=== PATIENT | female | born 1945 | race Caucasian/White ===

== ENCOUNTER → 2021-06-27 | Outpatient (CLI) | payer MEDICARE ==
--- NOTE | 2021-06-27 15:54 | CT ---
EXAMINATION TYPE: CT angio chest DATE OF EXAM: 06/27/2021 3:44 PM COMPARISON: Outside chest x-ray earlier today HISTORY: Shortness of breath. CT DLP: 445.4 mGycm Automated exposure control for dose reduction was used. CONTRAST: CTA scan of the thorax is performed with IV Contrast, patient injected with 80 mL of Isovue M300, pul monary embolism protocol. MIP images are created and reviewed. FINDINGS: LUNGS: Mild to moderate underlying emphysematous change is present. There is lateral 4 mm left lower lobe nodule axial image 89. [id number] peripheral reticulation in the anterior right midlung. N o pleural effusion or pneumothorax seen bilaterally. No suspicious focal consolidation. MEDIASTINUM: There is satisfactory enhancement of the pulmonary artery and its branches, there is no CT evidence for pulmonary embolism. Prominent main and right pulmonary artery suggesting underlying p ulmonary artery hypertension. There are no greater than 1 cm mediastinal lymph nodes. Prominent but l ow dense right hilar lymph nodes. No cardiomegaly or pericardial effusion is seen. Fairly severe thr ee-vessel coronary artery calcification. OTHER: Cholecystectomy clips. Visualized portion of spleen is prominent. Correlate clinically. Ovoid 3.5 x 2.8 x 3.6 cm medial right breast lesion axial image 46 and coronal image 23 abuts the chest wa ll, Hounsfield units average between 45 and 52. Possible complex fluid collection. Solid mass is not excluded. IMPRESSION: 1. Mild to moderate emphysematous change without acute pulmonary process. No CT evidence for acute pu lmonary embolism. Underlying pulmonary artery hypertension. 2. Nonspecific 3.5 cm medial right breast lesion, need to further investigated with diagnostic mammog yair and ultrasound should be based on clinical correlation.
== END | disposition home or self-care (01) ==
LOC: RADCTMAIN 14:37
PROVIDERS: ATTEND Nurse Practitioner Adult Health
DX: J43.9 Emphysema, unspecified (principal); I27.20 Pulmonary hypertension, unspecified
CPT/HCPCS: 82565; 84520; 71275; 36415; Q9967

== ENCOUNTER → 2024-07-24 | Outpatient (CLI) | payer MEDICARE ==
[2024-07-24 12:49] LABS: African American GFR (CKD) 42 (>60 ml/min/1.73 sqM); Blood Urea Nitrogen 23 mg/dL (7-17); Non-African American GFR(CKD) 37 (>60 ml/min/1.73 sqM)
--- NOTE | 2024-07-24 13:54 | CT ---
EXAMINATION TYPE: CT chest w con CT DLP: 516.60 mGycm, Automated exposure control for dose reduction was used. DATE OF EXAM: 07/24/2024 1:39 PM COMPARISON: CT chest 06/27/2021. CLINICAL INDICATION: Female, 78 years old with history of R91.1 SOLITARY PULMONARY NODULE; PHH, Solit les pulmonary nodule. Isovue 300/80 ml. Machine errored right before scanning, images taken at a long er delay. TECHNIQUE: Multiple axial images were obtained through the chest. Sagittal and coronal reformats were created for review. Contrast used:80 mL of Isovue 300 with IV Contrast (None if empty) Oral contrast used: (None if empty) FINDINGS: LUNGS/ PLEURA: No focal consolidation, pneumothorax or pleural effusion. Left lower lobe pulmonary no dule measuring 13 mm series 4 image 39. Suture emphysema changes. AIRWAY: Patent and unremarkable. HEART: Heart is mildly enlarged for size. Aortic valve calcifications and coronary artery atheroscler osis. Mitral valve annular cusp patient's. MEDIASTINUM: No gross evidence of adenopathy. VASCULATURE: No aortic aneurysm. Dilated pulmonary trunk measuring 37 mm. MUSCULOSKELETAL: No acute osseous abnormalities SOFT TISSUES/LYMPH NODES: Subcutaneous lesion in the medial right lower breast similar measuring 34 x 31 mm. LOWER NECK: No significant findings. UPPER ABDOMEN:. Gallbladder surgically absent. IMPRESSION: 1. Left lower lobe pulmonary nodule measuring 13 mm series 4 image 39 further workup with PET/CTs re commended. New from 06/27/2021. 2. Mild to moderate emphysema changes. 3. Medial right lower breast mass has mildly increased in size. Further evaluation with ultrasound r ecommended for mammographic workup recommended. 4. Severe coronary artery atherosclerosis. Mitral valve annular calcifications. 5. Mild cardiomegaly. 6. Pulmonary hypertension
== END | disposition home or self-care (01) ==
LOC: RADCTMAIN 11:58
PROVIDERS: ATTEND Internal Medicine Critical Care Medicine
DX: R91.1 Solitary pulmonary nodule
CPT/HCPCS: 36415; 71260; 82565; 84520

== ENCOUNTER → 2024-08-13 | Outpatient (CLI) | payer MEDICARE ==
--- NOTE | 2024-08-15 14:50 | PE ---
EXAMINATION TYPE: PET CT fusion skull to thigh DATE OF EXAM: 08/13/2024 CLINICAL INDICATION:Female, 78 years old with history of SOLITARY PULMONARY NODULE; TECHNIQUE: Following the intravenous administration of 12.3 mCi of F-18 FDG, whole body images are performed from the skull base to the midthigh. Images are reviewed on the computer in the coronal, a xial, and sagittal planes. Reconstructed rotating images are created on independent workstation and reviewed on the computer. A non-contrast CT is performed in conjunction with the PET scan. Glucose level 124 mg/dL CT DLP: 885r mGycm, Automated exposure control for dose reduction was used. COMPARISON: CT 07/24/2024, PET/CT None, MRI: None FINDINGS: Mediastinal SUV mean is 2.7. Hepatic parenchyma SUV mean is 3.8. SKULL BASE AND NECK: No suspicious radiotracer activity. CHEST, MEDIASTINUM, AND HILAR REGION: * Indeterminate medial right breast soft tissue lesion measuring 38 x 33 mm max SUV 3.2. * Right pulmonary hilum lymph nodes max SUV 4.7. * Left lower lobe pulmonary nodule measuring 14 mm Max SUV 17.1. * Left pulmonary hilum lymph nodes max SUV 22.6. ABDOMEN AND PELVIS: No suspicious radiotracer activity. MUSCULOSKELETAL STRUCTURES: No suspicious radiotracer activity. Muscle strain uptake within the pelvic girdles/gluteus benji bilaterally musculature. OTHER CT: Atherosclerosis of the carotid bifurcations and coronary arteries. The gallbladder is surgi krystle absent. Small hiatal hernia. Scattered colonic diverticula. The appendix is not definitively vi sualized may be surgically absent. High density items are seen in the colon possibly representing com parison. IMPRESSION: 1. Left lower lobe pulmonary nodule compatible with malignancy with at least one left pulmonary hilu m lymph node with metabolic activity compatible with local metastatic disease. 2. Indeterminate inferior right medial breast lesion correlate with mammography, if no recent mammog ami further workup with mammography and ultrasound recommended. [facility], , 08/15/2024 2:48 PM
== END | disposition home or self-care (01) ==
LOC: RADPETMAIN 14:15
PROVIDERS: ATTEND Internal Medicine Critical Care Medicine
DX: R91.1 Solitary pulmonary nodule (principal)
CPT/HCPCS: 78815; A9552

== ENCOUNTER 2024-08-27 13:05 | Day surgery (SDC) | payer MEDICARE ==
[2024-08-27] MEDS: IV FLUID CONTINUATION 1,000 ML IV ONE (13:49)
[2024-08-27] MEDS: LACTATED RINGERS 1,000 ML IV SCH ×2 (14:01→20:35)
[2024-08-27] MEDS: DEXAMETHASONE SOD PHOSPHATE 4 MG/ML 1 ML VIAL IVP STA (14:12)
[2024-08-27] MEDS: ONDANSETRON 4 MG/2 ML VIAL IVP STA (14:12)
--- NOTE | 2024-08-27 14:56 | CT ---
EXAMINATION TYPE: CT chest wo con CT DLP: 736 mGycm, Automated exposure control for dose reduction was used. DATE OF EXAM: 08/27/2024 1:57 PM COMPARISON: CT 08/13/2024, CT chest 07/24/2024, CTA chest 06/27/2021 CLINICAL INDICATION:Female, 78 years old with history of R91.1 Solitary pulmonary nodule; PHH, pre-op bronch. History of right-sided breast cancer 2018. TECHNIQUE: Multiple axial images were obtained through the chest without IV contrast. Lack of IV or o ral contrast limits evaluation of solid and hollow organ viscera. . Coronal and sagittal reformats re viewed. FINDINGS: LUNGS/ PLEURA: No focal consolidation, pneumothorax or pleural effusion. Redemonstration of left lowe r lobe solid pulmonary nodule measuring 1.6 cm (series 4, image 225). Previously 1.3 cm. FDG avid on prior exam. Stable left lateral lower lobe 4.8 mm pulmonary nodule (series 4, image 216). Mild to mod erate centrilobular emphysema changes. Mild scattered subpleural reticulations. Most prominent along the anterior aspect of the right upper lobe again. Possibly related to prior posttreatment radiation change. AIRWAY: Patent and unremarkable. HEART: Heart is mildly enlarged for size. Aortic valve calcifications and coronary artery atheroscler osis. Mitral valve annular dense calcifications. No pericardial effusion. MEDIASTINUM: Patient enlarged heterogenous left hilar lymph node measuring 1.3 cm (series 3, image 32 7). FDG avid on prior exam. VASCULATURE: No aortic aneurysm. Dilated pulmonary trunk measuring 3.8 cm. Mild to moderate atherosc lerotic calcification of the aorta and its branches. MUSCULOSKELETAL: No acute osseous abnormalities. Multilevel degenerative changes of the visualized ce rvical spine. [facility] of the thoracic spine. SOFT TISSUES/LYMPH NODES: Subcutaneous lesion in the medial right lower breast similar measuring 3.5 x 2.7 m again. Stable dating back to 2020. LOWER NECK: No significant findings. UPPER ABDOMEN:. Gallbladder surgically absent. Prominent spleen measuring at least 13.7 cm in AP dime nsion. Scattered colonic diverticulosis. Small hiatal hernia. IMPRESSION: 1. Marginal increase in size of 1.6 cm left lower lobe pulmonary nodule which was FDG avid on recent PET/CT. Previously 1.3 cm. Highly concerning for primary lung malignancy. 2. Redemonstration of left perihilar 1.3 cm enlarged lymph node which was FDG avid on recent PET CT and concerning for metastasis. Mild to moderate emphysema changes. 3. Medial right lower breast lesion is stable dating back to 2020 and may represent a seroma in the setting of prior reported right breast cancer. Stability from 2020 suggests a benign process. 4. Severe coronary artery atherosclerosis. Mitral valve annular calcifications. 5. Mild cardiomegaly. 6. Pulmonary hypertension [facility], , 08/27/2024 2:09 PM
[2024-08-27] MEDS ORDERED: fentaNYL (PF) 50 MCG/ML 2 ML AMP ONE (14:58)
[2024-08-27] MEDS ORDERED: ROCURONIUM 10 MG/ML (5 ML VIAL) IV ONE (14:58)
[2024-08-27] MEDS ORDERED: GLYCOPYRROLATE 0.2 MG/ML 2 ML VIAL ONE (14:58)
[2024-08-27] MEDS ORDERED: SUCCINYLCHOLINE CHLORIDE 200 MG/10 ML VIAL IV ONE (14:58)
[2024-08-27] MEDS ORDERED: PROPOFOL 10 MG/ML 20 ML VIAL IV ONE (14:58)
[2024-08-27] MEDS ORDERED: LIDOCAINE 1% INJ 10MG/ML (20 ML MDV) ONE (14:58)
[2024-08-27] MEDS ORDERED: NEOSTIGMINE 1 MG/ML 10 ML VIAL ONE (14:58)
[2024-08-27] MEDS ORDERED: ePHEDrine 50 MG/ML 1 ML VIAL ONE (14:58)
--- NOTE | 2024-08-27 16:17 | P.PCN ---
Date of Procedure: 08/27/24 Operative Findings: Date of Procedure: 08/27/24 Operative Findings: Preoperative Diagnosis: Left lower lobe mass Left hilar lymph node Postoperative Diagnosis: Left lower lobe mass Left hilar lymph node Procedure(s) Performed: Flexible bronchoscopy Endobronchial ultrasound and biopsy of a left hilar lymph node Robotic-assisted bronchoscopy and radial ultrasound evaluation of the left lower lobe mass Robotic-assisted transbronchial biopsies of the left lower lobe mass Anesthesia: SUSI Surgeon: Hortencia Salgado Estimated Blood Loss (ml): 0 Pathology: other Condition: stable Disposition: same day Operative Findings: A physical exam was performed. Informed consent was obtained from the patient after explaining all the risks (pneumothorax, life threatening bleeding, infection and adverse effects due to medications), benefits and alternatives to the procedure which the patient appeared to understand and so stated. The patient was connected to the monitoring devices. General anesthesia was induced and the patient was intubated by anesthesia. A final timeout was performed and the procedure confirmed by the attending bronchoscopist. The bronchoscope was inserted and the airway examined. Airway examination was essentially within normal limits. The endobronchial ultrasound was inserted. Careful review of the mediastinal lymph nodes and mediastinal stations was done within the thorax. There was a left hilar station 10 lymph node identified measuring 15 x 12 mm in size. Using a 22-gauge physician needle, transbronchial needle aspirate of the left lymph node was done and a total of 5 passes were taken without any complications. Minimal amount of bleeding was encountered and this was easily suctioned using the flexible bronchoscope. The flexible bronchoscope was removed and the robotic bronchoscope was inserted. Registration was completed. I next guided the robotic bronchoscope using the navigation system into theleft lower lobe posterior segment. Once in proper position, the bronchoscope was frozen. The radial EBUS probe was placed through the bronchoscope and confirmed abnormal u/s images vs normal lung. U/S evaluation was then used to reconfirm location. Forceps were next introduced through working channel and transbronchial biopsies of the left lower lobe mass was done under fluoroscopic guidance. The u/s probe was then reinserted to confirm location. When confirmed this process was repeated for a total of 6 transbronchial biopsies. Flex. bronchoscope was inserted and regular suctioning was done. At the completion of the procedure, no residual secretions or bloody material within the airway. The bronchoscope was removed. The endobronchial ultrasound was inserted. RECOMMENDATIONS: Await pathology and cytology results The referring physician will be alerted to the results when available. The patient was advised to follow up with the referring physician with the biopsy results Patient will be called with results.
--- NOTE | 2024-08-27 16:57 | XR ---
EXAMINATION TYPE: XR chest 1V DATE OF EXAM: 08/27/2024 COMPARISON: CT chest 08/27/2024 INDICATION: Previous abnormal TECHNIQUE: Single frontal view of the chest is obtained. FINDINGS: The heart size is normal. The pulmonary vasculature is normal. Diffuse increased lung markings are present, greater at the left base. No pneumothorax is evident. Di screte nodule identified by CT not evident on chest x-ray IMPRESSION: 1. Diffuse nonspecific increased lung markings. Patient's left infrahilar nodule not discretely ident ified on the chest film [facility], Workstation: [facility], 08/27/2024 4:55 PM
[2024-08-27] MEDS ORDERED: ALBUTEROL HFA INHALER INHALATION PRN (19:44)
--- NOTE | 2024-08-27 20:07 | P.CNPUL ---
History of Present Illness Consult date: 08/27/24 Reason for consult: hypoxemia History of present illness: This is a 78-year-old female patient who underwent a successful biopsy of the left hilar lymph node and the left lower lobe mass utilizing endobronchial ultrasound and IM bronchoscopy. Postop, the patient pulse ox remained around 84% room air oxygen and the patient was unable to regain back her oxygenation. Noted the chest x-ray that was done postop showed no pulmonary complications. The patient is calm and comfortable. She is free of any chest pain. Denies having any other specific complaints. Noted the patient had a 1.3 cm left lower lobe pulmonary nodule and another left hilar lymph node that were both PET avid. She is known to have severe COPD with an FEV1 of 55 to 61% predicted. She had a previous COVID-19 infection back in September 2023 from which she recovered. She also has obstructive sleep apnea maintained on CPAP therapy pressure of 9. She does not have coronary artery disease, chronic kidney disease stage III with a GFR of 47, hypertension hyperlipidemia and she is also obese. Based on that, the patient will be admitted for observation and oxygenation will be monitored and she will be provided an incentive spirometer. Home medication will be also resumed. She may need home O2 at time of discharge. Review of Systems Constitutional: Denies chills, Denies fever Eyes: denies as per HPI, denies blurred vision, denies bulging eye, denies decreased vision, denies diplopia, denies discharge, denies dry eye, denies irritation, denies itching, denies pain, denies photophobia, denies loss of peripheral vision, denies loss of vision, denies tunnel vision/blind spots Ears: deny: decreased hearing, ear discharge, earache, tinnitus Ears, nose, mouth and throat: Reports as per HPI Breasts: absent: as per HPI, change in shape, gynecomastia, masses, nipple discharge, pain, skin changes, swelling Cardiovascular: Reports dyspnea on exertion Respiratory: Reports dyspnea Gastrointestinal: Reports as per HPI Genitourinary: Reports as per HPI Menstruation: Reports as per HPI Musculoskeletal: Reports as per HPI Musculoskeletal: absent: ankle pain, ankle stiffness, ankle swelling, as per HPI, elbow pain, elbow stiffness, elbow swelling, foot pain, foot stiffness, foot swelling, hand pain, hand stiffness, hand swelling, hip pain, hip s tiffness, hip swelling, knee pain, knee stiffness, knee swelling, shoulder pain, shoulder stiffness, shoulder swelling, wrist pain, wrist stiffness, wrist swelling Integumentary: Reports as per HPI Neurological: Reports as per HPI Psychiatric: Reports as per HPI Endocrine: Reports as per HPI Hematologic/Lymphatic: Reports as per HPI Allergic/Immunologic: Reports as per HPI Past Medical History Past Medical History: Cancer, COPD, GERD/Reflux, Hypertension, Osteoarthritis (OA), Pneumonia Additional Past Medical History / Comment(s): LEFT ANKLE EDEMA, SOB, CHRONIC COUGH, hx. right breast ca 2019; pt reports she went to [facility] on [address] about 3 weeks ago for fatigue, severe headache, & nausea- was diagnosed with mononucleosis- advised pt she needs to contact Dr. Salgado to notify him of this. History of Any Multi-Drug Resistant Organisms: None Reported Past Surgical History: Breast Surgery, Cholecystectomy, Hysterectomy Additional Past Surgical History / Comment(s): LEFT BREAST BX BENIGN, right breast lumpectomy 2019 with radiation Past Anesthesia/Blood Transfusion Reactions: Previous Problems w/ Anesthesia Additional Past Anesthesia/Blood Transfusion Reaction / Comment(s): pt states hard time waking up out of anesthesia Smoking Status: Former smoker - Past Family History Mother Family Medical History: Coronary Artery Disease (CAD), Hypertension Additional Family Medical History / Comment(s): cabg (triple) when 76, brain tumor Father Family Medical History: Prostate Disorder Additional Family Medical History / Comment(s): congenital heart fauilure; prostate ca Medications and Allergies Home Medications Medication Instructions Recorded Confirmed Type Albuterol Sulfate [Proair Hfa] 2 puff INHALATION DIRECTED PRN 08/17/14 08/27/24 History Aspirin 81 mg PO DAILY 08/17/14 08/27/24 History Furosemide [Lasix] 40 mg PO DAILY 08/17/14 08/27/24 History Losartan [Cozaar] 50 mg PO BID 08/17/14 08/27/24 History Omeprazole [PriLOSEC] 10 mg PO DAILY 08/17/14 08/27/24 History Potassium Chloride [Klor-Con 20] 20 meq PO DAILY 08/17/14 08/27/24 History Sertraline [Zoloft] 100 mg PO DAILY 08/17/14 08/27/24 History Albuterol Nebulized [Ventolin 2.5 mg INHALATION DAILY 08/24/24 08/27/24 History Nebulized] Ascorbic Acid [Vitamin C] 500 mg PO DAILY 08/24/24 08/27/24 History Cholecalciferol [Vitamin D3 (25 25 mcg PO DAILY 08/24/24 08/27/24 History Mcg = 1000 Iu)] Cyanocobalamin (Vitamin B-12) 2,000 mcg PO DAILY 08/24/24 08/27/24 History [Vitamin B-12] Ferrous Sulfate [Feosol] 325 mg PO DAILY 08/24/24 08/27/24 History Fiber 1 dose PO DAILY 08/24/24 08/27/24 History Fluticasone/Umeclidin/Vilanter 1 inhalation INHALATION DAILY 08/24/24 08/27/24 History [Trelegy Ellipta 100-62.5-25] Krill/Om-3/Dha/Epa/Phospho/Ast 1 each PO DAILY 08/24/24 08/27/24 History [Krill Oil 600 mg Softgel] Magnesium 250 mg PO DAILY 08/24/24 08/27/24 History Metoprolol Tartrate 12.5 mg PO BID 08/24/24 08/27/24 History Allergies Allergy/AdvReac Type Severity Reaction Status Date / Time codeine Allergy Unknown Verified 08/27/24 13:40 egg Allergy Unknown Verified 08/27/24 13:40 Estrogens Allergy Unknown Verified 08/27/24 13:40 Sulfa (Sulfonamide Allergy Unknown Verified 08/27/24 13:40 Antibiotics) atorvastatin calcium AdvReac Unknown Verified 08/27/24 13:40 [From Lipitor] Physical Exam Vitals: Vital Signs Temp Pulse Resp BP Pulse Ox 08/27/24 18:45 69 18 129/73 93 L 08/27/24 18:15 73 16 127/70 90 L 08/27/24 17:55 71 16 113/68 93 L 08/27/24 17:35 64 17 120/55 91 L 08/27/24 17:20 68 17 118/59 94 L 08/27/24 17:05 69 18 125/72 94 L 08/27/24 16:49 68 16 112/76 94 L 08/27/24 16:34 69 16 112/78 95 08/27/24 16:19 97 F L 89 16 123/57 94 L 08/27/24 13:55 97.2 F L 67 16 132/52 92 L Intake and Output 08/27/24 08/27/24 08/27/24 06:59 14:59 22:59 Intake Total 100 500 Balance 100 500 Intake: IV 100 500 Other: Weight 97.7 kg The patient appeared well nourished and normally developed. Vital signs as documented. Head exam is unremarkable. No scleral icterus or corneal arcus noted. Neck is without jugular venous distension, thyromegaly, or carotid bruits. Carotid upstrokes are brisk bilaterally. Lungs are diminished in lung bases bilaterally. No wheezes. Cardiac exam reveals the PMI to be normally sized and situated. Rhythm is regular. First and second heart sounds normal. No murmurs, rubs or gallops. Abdominal exam reveals normal bowel sounds, no masses, no organomegaly and no aortic enlargement. Extremities are nonedematous and both femoral and pedal pulses are normal. Examination of the skin revealed no evidence of significant rashes, suspicious appearing nevi or other concerning lesions. Neurologically, the patient is awake and alert and the patient does not have any focal neurological deficit. Cranial nerves are essentially intact. Results - Diagnostic Findings Chest x-ray: image reviewed Assessment and Plan Plan: Acute hypoxic respiratory failure following a endobronchial ultrasound and I am bronchoscopy for left lower lobe and the hilar mass that was PET avid. The patient is currently on 2 L of oxygen by nasal cannula. No complications attributed to the procedure. No bleeding encountered. Chest x-ray shows no evidence of any pneumothorax. Suspect postop atelectasis and mucous c ontributing to her hypoxemia and this is an acute on top of her chronic hypoxemic respiratory failure. Baseline pulse ox is in order of 94 to 95%. Solitary nodule of lung, CT scan of the chest from 07/24/2024 shows a left lower lobe pulmonary nodule measuring 13 mm in size in addition to a lesion in the right lower breast measuring 34 x 31 mm in size. PET/CT done on 08/15/2024 confirmed the presence of a left lower lobe and left hilum metabolically avid lesions in addition to an indeterminant inferior right medial breast lesion that needs to be further correlated with mammography. History of breast cancer severe chronic obstructive pulmonary disease, the patient has moderate to severe COPD and currently she is stable on Trelegy Ellipta. She is taking the medication one inhalation a day without any major side effects. No smoking. She has an FEV1 of 55-61% and she is vaccinated for COVID 19. COVID-19 in September 2023, recovered without any complications and her respiratory status remained stable for now. obstructive sleep apnea syndrome, the patient is currently receiving CPAP therapy at a pressure of 9 cm of water. coronary arteriosclerosis, the patient follows up with Dr. Masters on her most recent cardiac stress test from June 2017 showed an ejection fraction of 65% without any reversible ischemia. obesity chronic renal failure, the patient has a stable kidney function with a GFR of 47 and a creatinine of 1.13. This is based on the evaluation that was done on 11/18/2016. hypertensive disorder hyperlipidemia Plan Monitor oxygenation Provide incentive spirometer Titrate oxygen flow, currently on 2 L Repeat chest x-ray in the morning Anticipate improvement in oxygenation. If not, will provide home O2 Biopsy was completed successfully, awaiting results.
[2024-08-27] MEDS: LOSARTAN 50 MG TAB PO SCH (20:08)
[2024-08-27] MEDS: METOPROLOL TARTRATE 12.5 MG TAB PO SCH (20:08)
[2024-08-27] MEDS: BENZOCAINE/MENTHOL LOZENG 1 EACH LOZENGE MUCOUS MEM PRN (20:35)
--- NOTE | 2024-08-27 21:33 | FL ---
EXAMINATION TYPE: FL bronchoscopy DATE OF EXAM: 08/27/2024 9:20 PM COMPARISON: Pre Operative Images if available both CT/MRI or plain film CLINICAL INDICATION: Female, 78 years old with history of PULMONARY NODULE; TECHNIQUE: FL bronchoscopy, multiple fluoroscopic images provided for procedure. Total fluoroscopy time: 18 seconds Total submitted images to PACS: 1 DAP: [id number] mGym2 Gycm2 uGym2 cGycm2 or equivalent. FINDINGS: ION bronchoscopy images demonstrate bronchoscope terminating in the lung. No immediate complications identified, no pneumothorax identified. IMPRESSION: 1. No evidence for intraoperative complication. 2. Please see the operative/procedural note for further details. [facility], , 08/27/2024 9:30 PM
--- NOTE | 2024-08-27 23:57 | P.CONS ---
History of Present Illness - Reason for Consult Consult date: 08/27/24 medical management - History of Present Illness Patient is a 78-year-old female with COPD (no home oxygen), BECKY (CPAP use at home), anxiety, depression, panic disorder, GERD, osteoarthritis and history of breast cancer and seen for medical management status post bronchoscopy for a left lung nodule biopsy. Nodule was seen on CT scan of the abdomen and was followed up with Dr. Salgado. Follow-up imaging of PET scan showed left lung lesions and hilar lymph nodes concerning for mets. After the procedure, she experienced shortness of breath with O2 saturation at 70s on 2 L nasal cannula. At current patient has no complaints other than shortness of breath on exertion and is relieved with rest. She denies chest pain, palpitations, calf tenderness, leg pain, abdominal pain, fever, chills, nausea or vomiting, changes in vision, focal weakness, or tremors. Review of systems: Pertinent positives and negatives as discussed in HPI, a complete review of systems was performed and all other systems are negative. Physical examination: Vital signs reviewed General: non toxic, no distress, appears at stated age, on 2 L nasal cannula Derm: no unusual rashes/lesions, warm Head: atraumatic, normocephalic, symmetric Eyes: EOMI, anicteric sclera, pupils equal round reactive to light ENT: Nose and ears atraumatic Neck: No masses or lesions grossly, trachea midline, supple Mouth: no lip lesion, mucus membranes moist Cardiovascular: S1S2 reg, no murmur Lungs: good breath sounds bilateral, scattered wheezing , no rhonchi, no rales, no accessory muscle use Abdominal: soft, nondistended, nontender to palpation, no guarding Ext: muscle strength 5 out of 5 in all 4 upper and lower extremities grossly, no gross muscle atrophy, no contractures, positive dorsalis pedis pulse bilateral, no leg edema Neuro: CN II-XI grossly intact, no gross focal neuro deficits Psych: Alert and oriented x 3, appropriate affect and mood Assessment/Plan: Chronic conditions: #. COPD -Supplemental oxygenation as needed -Symbicort inhaler twice daily -Ventolin inhaler as needed for shortness of breath #. BECKY -Continue CPAP #. GERD #. Hypertension: Lopressor 12.5 mg twice daily, losartan 50 mg p.o. twice daily #. CKD stage III last known GFR 47 #. Anxiety #. Depression #. Panic disorder -Resume home medications once reconciled -CBC, BMP at AM no labs available for review DVT prophylaxis: Lovenox 30 mg SQ once a day We will follow patient along with you. Thank you for letting us participate in this patient's care. Past Medical History Past Medical History: Cancer, COPD, GERD/Reflux, Hypertension, Osteoarthritis (OA), Pneumonia Additional Past Medical History / Comment(s): LEFT ANKLE EDEMA, SOB, CHRONIC COUGH, hx. right breast ca 2019; pt reports she went to [facility] on [address] about 3 weeks ago for fatigue, severe headache, & nausea- was diagnosed with mononucleosis- advised pt she needs to contact Dr. Salgado to notify him of this. History of Any Multi-Drug Resistant Organisms: None Reported Past Surgical History: Breast Surgery, Cholecystectomy, Hysterectomy Additional Past Surgical History / Comment(s): LEFT BREAST BX BENIGN, right breast lumpectomy 2019 with radiation Past Anesthesia/Blood Transfusion Reactions: Previous Problems w/ Anesthesia Additional Past Anesthesia/Blood Transfusion Reaction / Comm: pt states hard time waking up out of anesthesia Smoking Status: Former smoker - Past Family History Mother Family Medical History: Coronary Artery Disease (CAD), Hypertension Additional Family Medical History / Comment(s): cabg (triple) when 76, brain tumor Father Family Medical History: Prostate Disorder Additional Family Medical History / Comment(s): congenital heart fauilure; prostate ca Medications and Allergies Home Medications Medication Instructions Recorded Confirmed Type Albuterol Sulfate [Proair Hfa] 2 puff INHALATION DIRECTED PRN 08/17/14 08/27/24 History Aspirin 81 mg PO DAILY 08/17/14 08/27/24 History Furosemide [Lasix] 40 mg PO DAILY 08/17/14 08/27/24 History Losartan [Cozaar] 50 mg PO BID 08/17/14 08/27/24 History Omeprazole [PriLOSEC] 10 mg PO DAILY 08/17/14 08/27/24 History Potassium Chloride [Klor-Con 20] 20 meq PO DAILY 08/17/14 08/27/24 History Sertraline [Zoloft] 100 mg PO DAILY 08/17/14 08/27/24 History Albuterol Nebulized [Ventolin 2.5 mg INHALATION DAILY 08/24/24 08/27/24 History Nebulized] Ascorbic Acid [Vitamin C] 500 mg PO DAILY 08/24/24 08/27/24 History Cholecalciferol [Vitamin D3 (25 25 mcg PO DAILY 08/24/24 08/27/24 History Mcg = 1000 Iu)] Cyanocobalamin (Vitamin B-12) 2,000 mcg PO DAILY 08/24/24 08/27/24 History [Vitamin B-12] Ferrous Sulfate [Feosol] 325 mg PO DAILY 08/24/24 08/27/24 History Fiber 1 dose PO DAILY 08/24/24 08/27/24 History Fluticasone/Umeclidin/Vilanter 1 inhalation INHALATION DAILY 08/24/24 08/27/24 History [Trelegy Ellipta 100-62.5-25] Krill/Om-3/Dha/Epa/Phospho/Ast 1 each PO DAILY 08/24/24 08/27/24 History [Krill Oil 600 mg Softgel] Magnesium 250 mg PO DAILY 08/24/24 08/27/24 History Metoprolol Tartrate 12.5 mg PO BID 08/24/24 08/27/24 History Allergies Allergy/AdvReac Type Severity Reaction Status Date / Time codeine Allergy Unknown Verified 08/27/24 13:40 egg Allergy Unknown Verified 08/27/24 13:40 Estrogens Allergy Unknown Verified 08/27/24 13:40 Sulfa (Sulfonamide Allergy Unknown Verified 08/27/24 13:40 Antibiotics) atorvastatin calcium AdvReac Unknown Verified 08/27/24 13:40 [From Lipitor] Physical Exam Vitals: Vital Signs Temp Pulse Resp BP Pulse Ox 08/27/24 18:45 69 18 129/73 93 L 08/27/24 18:15 73 16 127/70 90 L 08/27/24 17:55 71 16 113/68 93 L 08/27/24 17:35 64 17 120/55 91 L 08/27/24 17:20 68 17 118/59 94 L 08/27/24 17:05 69 18 125/72 94 L 08/27/24 16:49 68 16 112/76 94 L 08/27/24 16:34 69 16 112/78 95 08/27/24 16:19 97 F L 89 16 123/57 94 L 08/27/24 13:55 97.2 F L 67 16 132/52 92 L Intake and Output 08/27/24 08/27/24 08/27/24 06:59 14:59 22:59 Intake Total 100 500 Balance 100 500 Intake: IV 100 500 Other: Weight 97.7 kg Assessment and Plan Assessment: I have seen and evaluated the patient today. I Discussed the case with the resident and agree with the resident's findings I edited the assessment and plan as necessary as documented in the resident's note.
[2024-08-28] MEDS: CHOLECALCIFEROL 25 MCG (1000 IU) TABLET PO SCH (08:40)
[2024-08-28] MEDS: ENOXAPARIN 30 MG/0.3 ML SYRINGE SQ SCH (08:40)
[2024-08-28] MEDS: FUROSEMIDE 40 MG TAB PO SCH (08:40)
[2024-08-28] MEDS: POTASSIUM CHLORIDE ER 20 MEQ TAB.ER PO SCH (08:40)
[2024-08-28] MEDS: KRILL PO SCH (08:41)
[2024-08-28] MEDS: AST PO SCH (08:41)
[2024-08-28] MEDS: DHA PO SCH (08:41)
[2024-08-28] MEDS: [UNRECOGNIZED DRUG - OTHER] PO SCH (08:41)
[2024-08-28] MEDS: PHOSPHO PO SCH (08:41)
[2024-08-28] MEDS: EPA PO SCH (08:41)
[2024-08-28] MEDS: IPRATROPIUM 0.5 MG/2.5 ML NEBU INHALATION SCH (08:49)
[2024-08-28] MEDS: SYMBICORT 80-4.5 MCG INHALER INHALATION SCH (08:49)
[2024-08-28] MEDS: ALBUTEROL NEBULIZED 2.5 MG/3 ML INHALATION SCH (08:49)
[2024-08-28 10:40] LABS: Basophils # (A) 0.03 X 10*3/uL (0.00-0.10); Basophils % (A) 0.4 %; Eosinophils # (A) 0.01 X 10*3/uL (0.04-0.35); Eosinophils % (A) 0.1 %; HCT 36.2 % (37.2-46.3); HGB 11.2 g/dL (12.0-15.0); Lymphocytes # (A) 0.55 X 10*3/uL (0.90-5.00); Lymphocytes % (A) 6.6 %; MCH 26.7 pg (27.0-32.0); MCHC 30.9 g/dL (32.0-37.0); MCV 86.2 FL (80.0-97.0); Monocytes # (A) 0.33 X 10*3/uL (0.20-1.00); NRBC Per 100 WBC 0 X 10*3/uL (0.00-0.01); Neutrophils % (A) 88.5 %; Platelet Count 134 X 10*3/uL (140-440); RDW 15.1 % (11.5-14.5); WBC 8.35 X 10*3/uL (4.50-10.00)
[2024-08-28 11:08] LABS: BUN/Creat Ratio 17.33 Ratio (12.00-20.00); Blood Urea Nitrogen 20.8 mg/dL (9.0-27.0); Calcium 8.9 mg/dL (8.7-10.3); Carbon Dioxide 24.3 mmol/L (21.6-31.8); Chloride 105 mmol/L (96-109); Glucose 118 mg/dL (70-110); Potassium 4.7 mmol/L (3.5-5.5); Sodium 141 mmol/L (135-145)
--- NOTE | 2024-08-28 13:41 | P.DS ---
Providers Expected date of discharge: 08/28/24 Attending physician: Hortencia Salgado Consults: 08/27/24 19:22 Consult Physician Routine Consulting Provider: Osiel Perdue Consult Reason/Comments: MEDICAL MANAGEMENT Do you want consulting provider notified?: Yes Primary care physician: Shashi Talavera [facility] Course: # Chronic hronic hypoxemic respiratory failure secondary to COPD and BECKY #. COPD #. BECKY #. GERD #. Hypertension: Lopressor 12.5 mg twice daily, losartan 50 mg p.o. twice daily #. CKD stage III last known GFR 47 #. Anxiety #. Depression #. Panic disorder Hospital Course: Patient is a 78-year-old female with COPD (no home oxygen), BECKY (CPAP use at home), anxiety, depression, panic disorder, GERD, osteoarthritis and history of breast cancer and seen for medical management status post bronchoscopy for a left lung nodule biopsy. Patient was placed on oxygen and monitored overnight with no further events. There were no complications of the bronchoscopy. Patient was evaluated for home oxygen and determined to require this, therefore was discharged on home oxygen. Gen: In NAD, non-toxic HEENT: normocephalic, atraumatic, hearing acuity is intant, mucous membranes moist CVS: perfusing all extremities well, no pitting edema, Respiratory: symmetric chest expansion, no accessory muscle use, GI: soft, NTTP, ND, : no suprapubic tenderness, no CVA tenderness MSK/Derm: no rashes, cyanosis Neuro: CN II-XII intact, no motor weakness, Psych: cooperative, euthymic mood, judgment and insight is intact Patient Condition at Discharge: Good Plan - Discharge Summary Discharge Rx Participant: No New Discharge Prescriptions: Continue Sertraline [Zoloft] 100 mg PO DAILY Potassium Chloride [Klor-Con 20] 20 meq PO DAILY Omeprazole [PriLOSEC] 10 mg PO DAILY Losartan [Cozaar] 50 mg PO BID Furosemide [Lasix] 40 mg PO DAILY Aspirin 81 mg PO DAILY Albuterol Sulfate [Proair Hfa] 2 puff INHALATION DIRECTED PRN PRN Reason: copd Metoprolol Tartrate 12.5 mg PO BID Cholecalciferol [Vitamin D3 (25 Mcg = 1000 Iu)] 25 mcg PO DAILY Ascorbic Acid [Vitamin C] 500 mg PO DAILY Fiber 1 dose PO DAILY Fluticasone/Umeclidin/Vilanter [Trelegy Ellipta 100-62.5-25] 1 inhalation INHALATION DAILY Albuterol Nebulized [Ventolin Nebulized] 2.5 mg INHALATION DAILY Krill/Om-3/Dha/Epa/Phospho/Ast [Krill Oil 600 mg Softgel] 1 each PO DAILY Ferrous Sulfate [Iron (65 MG Elemental)] 325 mg PO DAILY Magnesium 250 mg PO DAILY Cyanocobalamin (Vitamin B-12) [Vitamin B-12] 2,000 mcg PO DAILY Discharge Medication List Albuterol Sulfate [Proair Hfa] 2 puff INHALATION DIRECTED PRN 08/17/14 [History] Aspirin 81 mg PO DAILY 08/17/14 [History] Furosemide [Lasix] 40 mg PO DAILY 08/17/14 [History] Losartan [Cozaar] 50 mg PO BID 08/17/14 [History] Omeprazole [PriLOSEC] 10 mg PO DAILY 08/17/14 [History] Potassium Chloride [Klor-Con 20] 20 meq PO DAILY 08/17/14 [History] Sertraline [Zoloft] 100 mg PO DAILY 08/17/14 [History] Albuterol Nebulized [Ventolin Nebulized] 2.5 mg INHALATION DAILY 08/24/24 [History] Ascorbic Acid [Vitamin C] 500 mg PO DAILY 08/24/24 [History] Cholecalciferol [Vitamin D3 (25 Mcg = 1000 Iu)] 25 mcg PO DAILY 08/24/24 [History] Cyanocobalamin (Vitamin B-12) [Vitamin B-12] 2,000 mcg PO DAILY 08/24/24 [History] Ferrous Sulfate [Iron (65 MG Elemental)] 325 mg PO DAILY 08/24/24 [History] Fiber 1 dose PO DAILY 08/24/24 [History] Fluticasone/Umeclidin/Vilanter [Trelegy Ellipta 100-62.5-25] 1 inhalation INHALATION DAILY 08/24/24 [History] Krill/Om-3/Dha/Epa/Phospho/Ast [Krill Oil 600 mg Softgel] 1 each PO DAILY 08/24/24 [History] Magnesium 250 mg PO DAILY 08/24/24 [History] Metoprolol Tartrate 12.5 mg PO BID 08/24/24 [History] Follow up Appointment(s)/Referral(s): [facility] [NON-STAFF] - 1 Week Hortencia Salgado MD [STAFF PHYSICIAN] - As Needed Patient Instructions/Handouts: *[facility] - Bronchoscopy Discharge Instructions, *[facility] - (Anesthesia) Discharge Instructions Outpatient Surgery Discharge Disposition: HOME SELF-CARE
[2024-08-28 14:34] VITALS: BP 110/50; PULSE 74; RESP 22; TEMP 97.7
--- NOTE | 2024-08-28 14:34 | P.PN ---
Subjective Progress Note Date: 08/28/24 This is a 78-year-old female patient who underwent a successful biopsy of the l eft hilar lymph node and the left lower lobe mass utilizing endobronchial ultrasound and IM bronchoscopy. Postop, the patient pulse ox remained around 84% room air oxygen and the patient was unable to regain back her oxygenation. Noted the chest x-ray that was done postop showed no pulmonary complications. The patient is calm and comfortable. She is free of any chest pain. Denies having any other specific complaints. Noted the patient had a 1.3 cm left lower lobe pulmonary nodule and another left hilar lymph node that were both PET avid. She is known to have severe COPD with an FEV1 of 55 to 61% predicted. She had a previous COVID-19 infection back in September 2023 from which she recovered. She also has obstructive sleep apnea maintained on CPAP therapy pressure of 9. She does not have coronary artery disease, chronic kidney disease stage III with a GFR of 47, hypertension hyperlipidemia and she is also obese. Based on that, the patient will be admitted for observation and oxygenation will be monitored and she will be provided an incentive spirometer. Home medication will be also resumed. She may need home O2 at time of discharge. On 08/28/2024, the patient is doing well. No specific complaints. Overnight, the patient was kept in the hospital as the patient was having some exertional and baseline hypoxemia. Her oxygenation is improved compared to yesterday. On room air oxygen, the patient's pulse ox is around 90 to 92%. With exertion, the patient's pulse ox is still dropping and we may recommend home O2 for this patient. Her labs are all stable with a white cell count of 8, white cell count is 11 with a platelet count of 134. Rest of the electrolytes are all within normal limits. The patient has no specific complaints. Overnight, she used incentive spirometer Objective - Vital Signs Vital signs: Vital Signs Temp 98.1 F 08/28/24 07:00 Pulse 68 08/28/24 12:31 Resp 16 08/28/24 12:31 BP 109/55 08/28/24 07:00 Pulse Ox 96 08/28/24 08:54 FiO2 Intake & Output 08/27/24 08/28/24 08/28/24 18:59 06:59 18:59 Intake Total 600 236 Balance 600 236 Weight 97.7 kg 97.7 kg Intake: IV 600 Oral 236 Other: # Voids 4 - Exam The patient appeared well nourished and normally developed. Vital signs as documented. Head exam is unremarkable. No scleral icterus or corneal arcus noted. Neck is without jugular venous distension, thyromegaly, or carotid bruits. Carotid upstrokes are brisk bilaterally. Lungs are diminished in lung bases bilaterally. No wheezes. Cardiac exam reveals the PMI to be normally sized and situated. Rhythm is regular. First and second heart sounds normal. No murmurs, rubs or gallops. Abdominal exam reveals normal bowel sounds, no masses, no organomegaly and no aortic enlargement. Extremities are nonedematous and both femoral and pedal pulses are normal. Examination of the skin revealed no evidence of significant rashes, suspicious appearing nevi or other concerning lesions. Neurologically, the patient is awake and alert and the patient does not have any focal neurological deficit. Cranial nerves are essentially intact. - Labs CBC & Chem 7: 08/28/24 04:34 08/28/24 04:34 Labs: Abnormal Lab Results - Last 24 Hours (Table) 08/28/24 08/28/24 Range/Units 04:34 04:34 Hgb 11.2 L (12.0-15.0) g/dL Hct 36.2 L (37.2-46.3) % MCH 26.7 L (27.0-32.0) pg MCHC 30.9 L (32.0-37.0) g/dL RDW 15.1 H (11.5-14.5) % Plt Count 134 L (140-440) X 10*3/uL Lymphocytes # 0.55 L (0.90-5.00) X 10*3/uL Eosinophils # 0.01 L (0.04-0.35) X 10*3/uL Est GFR (CKD-EPI) 46 L (>=60) Glucose 118 H (70-110) mg/dL Assessment and Plan Plan: Acute hypoxic respiratory failure following a endobronchial ultrasound and I am bronchoscopy for left lower lobe and the hilar mass that was PET avid. The patient is currently on 2 L of oxygen by nasal cannula. No complications attributed to the procedure. No bleeding encountered. Chest x-ray shows no evidence of any pneumothorax. Suspect postop atelectasis and mucous contributing to her hypoxemia and this is an acute on top of her chronic hypo xemic respiratory failure. Baseline pulse ox is in order of 94 to 95%. Solitary nodule of lung, CT scan of the chest from 07/24/2024 shows a left lower lobe pulmonary nodule measuring 13 mm in size in addition to a lesion in the right lower breast measuring 34 x 31 mm in size. PET/CT done on 08/15/2024 confirmed the presence of a left lower lobe and left hilum metabolically avid lesions in addition to an indeterminant inferior right medial breast lesion that needs to be further correlated with mammography. History of breast cancer severe chronic obstructive pulmonary disease, the patient has moderate to severe COPD and currently she is stable on Trelegy Ellipta. She is taking the medicati on one inhalation a day without any major side effects. No smoking. She has an FEV1 of 55-61% and she is vaccinated for COVID 19. COVID-19 in September 2023, recovered without any complications and her respiratory status remained stable for now. obstructive sleep apnea syndrome, the patient is currently receiving CPAP therapy at a pressure of 9 cm of water. coronary arteriosclerosis, the patient follows up with Dr. Masters on her most recent cardiac stress test from June 2017 showed an ejection fraction of 65% without any reversible ischemia. obesity chronic renal failure, the patient has a stable kidney function with a GFR of 47 and a creatinine of 1.13. This is based on the evaluation that was done on 11/18/2016. hypertensive disorder hyperlipidemia Plan Monitor oxygenation, the patient continues to have some exertional hypoxemia with a pulse ox of 84% with exertion. She will have home O2 and she will be discharged home today to be followed up on outpatient basis. Should be encouraged to continue using her incentive spirometer and bronchodilators at home. Biopsy was completed successfully, awaiting results.
[2024-08-29] MEDS ORDERED: ASPIRIN 81 MG PO SCH (09:00)
[2024-08-29] MEDS ORDERED: FERROUS SULFATE 325 MG TAB PO SCH (09:00)
[2024-08-29] MEDS ORDERED: CYANOCOBALAMIN 500 MCG TAB PO SCH (09:00)
[2024-08-29] MEDS ORDERED: SERTRALINE 100 MG TAB PO SCH (09:00)
[2024-08-29] MEDS ORDERED: ASCORBIC ACID 500 MG TAB PO SCH (09:00)
== END 2024-08-28 14:48 | disposition home or self-care (01) ==
LOC: ORWHC2ENDO 13:05 → 6NMEDSUR 16:00 → ORWHC2ENDO 08-28 14:48
PROVIDERS: ATTEND Internal Medicine Critical Care Medicine
CPT/HCPCS: 31628; 31629; 31652; 71045; 71250; 80048; 85025; 88305; 88341; 88342; 94640; 94760

== ENCOUNTER → 2024-09-17 | Outpatient (CLI) | payer MEDICARE ==
--- NOTE | 2024-09-17 15:56 | MM ---
Reason for Exam: Clinical finding. Last screening mammogram was performed 12 month(s) ago. Patient History: Menarche at age 9. First Full-Term at age 17. Left ovary removed at age 42. Hysterectomy at age 42. Breast cancer, right, age 72. Previous chest radiation therapy at age 72. Prior Study Comparison: 09/26/2022 Bilateral Screening Mammogram, Unknown. 10/01/2023 Bilateral Screening Mammogram, Unknown. Tissue Density: There are scattered areas of fibroglandular density. Findings: Analyzed By CAD. The pattern is symmetrical. There are extensive linear calcifications present bilaterally. Some coarse calcifications with linear [place] are in the inferior medial left breast, stable from comparison. There are new calcifications in the upper outer posterior left breast. These are clustered in the upper outer quadrant. Magnification views were obtained which remains suspicious. These are located 14 cm from the nipple upper outer quadrant. Right breast:No suspicious groups of microcalcifications, spiculated or lobular masses, architectural distortion or other secondary signs of malignancy are mammographically apparent. Overall Assessment: Incomplete: need additional imaging evaluation, BI-RAD 0 Management: Diagnostic Breast Ultrasound of both breasts. A negative mammogram report should not preclude additional follow up of suspicious palpable abnormalities. Patient should continue monthly self breast exam. A clinical breast exam by your physician is recommended on an annual basis and results should be correlated with mammographic findings. Note on Cary scores and lifetime risk: 1. A Cary score greater than 3% is considered moderate risk. If this is the case, consider specialist referral to assess eligibility for a risk reducing agent. 2. If overall lifetime risk for the development of breast cancer is 20% or higher, the patient may qualify for future screening with alternating mammogram and breast MRI. [facility], , 09/17/2024 3:27 PM. Electronically signed and approved by: Kenrick Pereira D.O. Radiologis
--- NOTE | 2024-09-18 06:31 | USB ---
Reason for Exam: Additional evaluation requested from prior study. Patient History: Menarche at age 9. First Full-Term at age 17. Left ovary removed at age 42. Hysterectomy at age 42. Breast cancer, right, age 72. Previous chest radiation therapy at age 72. Technique: Method: Targeted. Prior Study Comparison: 09/26/2022 Bilateral Screening Mammogram, Unknown. 10/01/2023 Bilateral Screening Mammogram, Unknown. Findings: The upper outer quadrant of the left breast, the upper inner quadrant of the right breast, the axilla of the left breast and the retroareolar of both breasts were scanned. Electronically signed and approved by: Kenrick Pereira D.O. Radiologis
== END | disposition home or self-care (01) ==
LOC: RADMAMWWP 14:16
PROVIDERS: ATTEND Internal Medicine Hematology & Oncology
DX: R92.323 Mammographic fibroglandular density, bilateral breasts (principal); N64.4 Mastodynia; Z85.3 Personal history of malignant neoplasm of breast
CPT/HCPCS: 77066; 76642; G0279; 77062

== ENCOUNTER 2025-01-29 06:23 | Observation (INO) | payer MEDICARE ==
--- NOTE | 2025-01-29 06:49 | ED ---
Chest Pain HPI - General Chief Complaint: Chest Pain Stated Complaint: chest pain Time Seen by Provider: 01/29/25 06:24 Source: patient, family, EMS, RN notes reviewed Mode of arrival: EMS - History of Present Illness Initial Comments: This is an 79-year-old female with history of stage II lung cancer, COPD, coronary artery disease with stent placement presented to the emergency department via EMS for complaint of chest pain. Patient states that at 04 100 this morning she went to use the bathroom when she began to experience substernal chest pain described as a pressure that was nonradiating. At the time she denies associated nausea, vomiting, diaphoresis. States that she took 481 mg aspirin prior to EMS arrival. Currently she endorses mild chest pressure described as a 2 out of 10 sensation that is nonradiating. Patient currently finished chemo and radiation for her lung cancer with Dr. Madrid, 3 months. Patient states that she does not wear oxygen at home however her normal oxygen saturation is within the low 90s. Denies history of DVT, PE, recent prolonged travel, recent surgeries, emesis, calf swelling or pain - Related Data Home Medications Medication Instructions Recorded Confirmed Albuterol Sulfate [Proair Hfa] 2 puff INHALATION DIRECTED PRN 08/17/14 09/18/24 Aspirin 81 mg PO DAILY 08/17/14 09/18/24 Furosemide [Lasix] 40 mg PO DAILY 08/17/14 09/18/24 Losartan [Cozaar] 50 mg PO BID 08/17/14 09/18/24 Omeprazole [PriLOSEC] 10 mg PO DAILY 08/17/14 09/18/24 Potassium Chloride [Klor-Con 20] 20 meq PO DAILY 08/17/14 09/18/24 Sertraline [Zoloft] 100 mg PO DAILY 08/17/14 09/18/24 Albuterol Nebulized [Ventolin 2.5 mg INHALATION DAILY 08/24/24 09/18/24 Nebulized] Ascorbic Acid [Vitamin C] 500 mg PO DAILY 08/24/24 09/18/24 Cholecalciferol [Vitamin D3 (25 25 mcg PO DAILY 08/24/24 09/18/24 Mcg = 1000 Iu)] Cyanocobalamin (Vitamin B-12) 2,000 mcg PO DAILY 08/24/24 09/18/24 [Vitamin B-12] Ferrous Sulfate [Iron (65 MG 325 mg PO DAILY 08/24/24 09/18/24 Elemental)] Fiber 1 dose PO DAILY 08/24/24 09/18/24 Fluticasone/Umeclidin/Vilanter 1 inhalation INHALATION DAILY 08/24/24 09/18/24 [Treletroy Ellipta 100-62.5-25] Krill/Om-3/Dha/Epa/Phospho/Ast 1 each PO DAILY 08/24/24 09/18/24 [Krill Oil 600 mg Softgel] Magnesium 250 mg PO DAILY 08/24/24 09/18/24 Metoprolol Tartrate 12.5 mg PO BID 08/24/24 09/18/24 Allergies Allergy/AdvReac Type Severity Reaction Status Date / Time codeine Allergy Unknown Verified 01/29/25 06:38 egg Allergy Unknown Verified 01/29/25 06:38 Estrogens Allergy Unknown Verified 01/29/25 06:38 Sulfa (Sulfonamide Allergy Unknown Verified 01/29/25 06:38 Antibiotics) atorvastatin calcium AdvReac Unknown Verified 01/29/25 06:38 [From Lipitor] Review of Systems ROS Statement: Those systems with pertinent positive or pertinent negative responses have been documented in the HPI. ROS Other: All systems not noted in ROS Statement are negative. Past Medical History Past Medical History: Cancer, COPD, GERD/Reflux, Hypertension, Osteoarthritis (OA), Pneumonia Additional Past Medical History / Comment(s): LEFT ANKLE EDEMA, SOB, CHRONIC COUGH, hx. right breast ca 2019; pt reports she went to [facility] on [address] about 3 weeks ago for fatigue, severe headache, & nausea- was diagnosed with mononucleosis- advised pt she needs to contact Dr. Salgado to notify him of this. History of Any Multi-Drug Resistant Organisms: None Reported Past Surgical History: Breast Surgery, Cholecystectomy, Hysterectomy Additional Past Surgical History / Comment(s): LEFT BREAST BX BENIGN, right breast lumpectomy 2019 with radiation Past Anesthesia/Blood Transfusion Reactions: Previous Problems w/ Anesthesia Additional Past Anesthesia/Blood Transfusion Reaction / Comment(s): pt states hard time waking up out of anesthesia Past Psychological History: Anxiety, Depression, Panic Disorder Smoking Status: Former smoker - Past Family History Mother Family Medical History: Coronary Artery Disease (CAD), Hypertension Additional Family Medical History / Comment(s): cabg (triple) when 76, brain tu mor Father Family Medical History: Prostate Disorder Additional Family Medical History / Comment(s): congenital heart fauilure; prostate ca General Exam General appearance: alert, in no apparent distress ENT exam: Present: normal exam, mucous membranes moist Neck exam: Present: normal inspection. Absent: tenderness, meningismus, lymphadenopathy Respiratory exam: Present: normal lung sounds bilaterally. Absent: respiratory distress, wheezes, rales, rhonchi, stridor Cardiovascular Exam: Present: regular rate, normal rhythm, normal heart sounds. Absent: systolic murmur, diastolic murmur, rubs, gallop, clicks GI/Abdominal exam: Present: soft, normal bowel sounds. Absent: distended, tenderness, guarding, rebound, rigid Extremities exam: Present: normal inspection, full ROM, normal capillary refill. Absent: tenderness, pedal edema, joint swelling, calf tenderness Back exam: Present: normal inspection Skin exam: Present: warm, dry, intact, normal color. Absent: rash Course Vital Signs 01/29/25 06:28 Temperature 98.5 F Pulse Rate 81 Respiratory 22 Rate Blood Pressure 141/58 O2 Sat by Pulse 94 L Oximetry Chest Pain MDM - MDM Was pt. sent in by a medical professional or institution (, PA, GUN STOCKER, urgent care, hospital, or alf...) When possible be specific @ -No Did you speak to anyone other than the patient for history (EMS, parent, family, police, friend...)? What history was obtained from this source @ -Spoke to patient's daughter at bedside who states that patient alerted her this morning that she was having symptoms of chest pain Did you review nursing and triage notes (agree or disagree)? Why? @ -I reviewed and agree with nursing and triage notes Were old charts reviewed (outside hosp., previous admission, EMS record, old EKG, old radiological studies, urgent care reports/EKG's, alf records)? Report findings @ -No old charts were reviewed Differential Diagnosis (chest pain, altered mental status, abdominal pain women, abdominal pain men, vaginal bleeding, weakness, fever, dyspnea, syncope, headache, dizziness, GI bleed, back pain, seizure, CVA, palpatations, mental health, musculoskeletal)? @ -Differential Chest Pain: Stable Angina, Unstable Angina, STEMI, NSTEMI Aortic Dissection, Pneumothorax, Musculoskeletal, Esophageal Spasm GERD, Cholecystitis, Pancreatitis, Zoster, this is not meant to be an all-inclusive list. EKG interpreted by me (3pts min.). @ -Completed at 749 sinus rhythm with a ventricular rate of 84, KS interval 154, QRS 90, QTc 421. X-rays interpreted by me (1pt min.). @ -chest xray unremarkable CT interpreted by me (1pt min.). @ -None done U/S interpreted by me (1pt. min.). @ -None done What testing was considered but not performed or refused? (CT, X-rays, U/S, labs)? Why? @ -None What meds were considered but not given or refused? Why? @ -None Did you discuss the management of the patient with other professionals (professionals i.e. , PA, GUN STOCKER, lab, RT, psych nurse, social and political studies professor, furnace attendant, t eacher, chief security and safety officer, caser in)? Give summary @ -EM for admission, Dee Molina, who has agreed to accept with cardiology on consult Was smoking cessation discussed for >3mins.? @ -No Was critical care preformed (if so, how long)? @ -No Were there social determinants of health that impacted care today? How? (Homelessness, low income, unemployed, alcoholism, drug addiction, transportation, low edu. Level, literacy, decrease access to med. care, fdc, rehab)? @ -No Was there de-escalation of care discussed even if they declined (Discuss DNR or withdrawal of care, Hospice)? DNR status @ -No What co-morbidities impacted this encounter? (DM, HTN, Smoking, COPD, CAD, Cancer, CVA, ARF, Chemo, Hep., AIDS, mental health diagnosis, sleep apnea, morbid obesity)? @ -HTN, COPD, lung CA Was patient admitted / discharged? Hospital course, mention meds given and route, prescriptions, significant lab abnormalities, going to OR and other pertinent info. @ -Admitted. 79-year-old female presenting via EMS for chest pain. On arrival patient's oxygen saturation is mildly low and is therefore placed on 2 L nasal cannula. EKG sinus rhythm. on my evaluation patient is resting comfortably no signs of acute distress. Blood pressure is stable. Patient was offered pain medication however she is declining stating that the pain at this time is very mild. Patient will undergo extensive laboratory testing for ACS rule out. CBC, CMP, coagulation within normal. Patient's troponin is indeterminate at 0.024. BNP level of 1380. Patient will be admitted to internal medicine with card iology on consult to trend troponins. On reevaluation, patient states that pain has slight return to her chest and therefore is provided with dose of morphine. Case has been discussed with Dr. Vasquez Undiagnosed new problem with uncertain prognosis? @ -No Drug Therapy requiring intensive monitoring for toxicity (Heparin, Nitro, Insulin, Cardizem)? @ -No Were any procedures done? @ -No Diagnosis/symptom? @ -Chest pain Acute, or Chronic, or Acute on Chronic? @ -Acute Uncomplicated (without systemic symptoms) or Complicated (systemic symptoms)? @ -Complicated Side effects of treatment? @ -No Exacerbation, Progression, or Severe Exacerbation? @ -No Poses a threat to life or bodily function? How? (Chest pain, [place], SC, pneumonia, PE, COPD, DKA, ARF, appy, cholecystitis, CVA, Diverticulitis, Homicidal, Suicidal, threat to staff... and all critical care pts) @ -yes, ACS can lead to end organ dysfunction Disposition Clinical Impression: Acute coronary syndrome, Chest pressure Disposition: ADMITTED IP TO THIS [facility] Condition: Serious Decision to Admit Reason: Admit from EC Decision Date: 01/29/25 Decision Time: 08:55
[2025-01-29 08:18] LABS: Anisocytosis Slight; Basophils % (A) 0 %; Eosinophils # (A) 0.1 k/uL (0-0.7); Eosinophils % (A) 2 %; HCT 33.7 % (34.0-46.0); HGB 10.9 gm/dL (11.4-16.0); Hypochromasia Moderate; Lymphocytes # (A) 0.3 k/uL (1.0-4.8); Lymphocytes % (A) 4 %; MCH 28.2 pg (25.0-35.0); MCHC 32.4 g/dL (31.0-37.0); MCV 87.3 fL (80.0-100.0); Mean Platelet Volume 8.1; Monocytes # (A) 0.3 k/uL (0-1.0); Monocytes % (A) 5 %; Neutrophils % (A) 89 %; Platelet Count 190 k/uL (150-450); Poikilocytosis Moderate; RBC 3.87 m/uL (3.80-5.40); RDW 17.5 % (11.5-15.5); WBC 6.8 k/uL (3.8-10.6)
--- NOTE | 2025-01-29 08:25 | XR ---
EXAM: XR Chest, 2 Views CLINICAL HISTORY: ITS.REASON XR Reason: Chest Pain TECHNIQUE: Frontal and lateral views of the chest. COMPARISON: X-ray dated 08/27/2024. FINDINGS: Lungs: Unremarkable. No consolidation. Pleural space: Unremarkable. No pneumothorax. Heart: Unremarkable. No cardiomegaly. Mediastinum: Unremarkable. Normal mediastinal contour. Bones/joints: Degenerative changes are seen in the spine and shoulders. No acute fracture. Vasculature: Calcifications overlie the aorta. IMPRESSION: No acute findings in the chest.
[2025-01-29 08:28] LABS: INR 1.2 (<1.2); Partial Thromboplastin Time 27.5 sec (22.0-30.0); Prothrombin Time 12.4 sec (10.0-12.5)
[2025-01-29 08:39] LABS: ALT 10 U/L (4-34); AST 20 U/L (14-36); African American GFR (CKD) 57 (>60 ml/min/1.73 sqM); Albumin 3.3 g/dL (3.5-5.0); Alkaline Phosphatase 66 U/L (38-126); Anion Gap 6 mmol/L; Blood Urea Nitrogen 19 mg/dL (7-17); Calcium 8.9 mg/dL (8.4-10.2); Carbon Dioxide 31 mmol/L (22-30); Chloride 98 mmol/L (98-107); Glucose 140 mg/dL (74-99); Lipase 69 U/L (23-300); Magnesium 1.7 mg/dL (1.6-2.3); Non-African American GFR(CKD) 49 (>60 ml/min/1.73 sqM); Potassium 3.5 mmol/L (3.5-5.1); Sodium 135 mmol/L (137-145); Total Bilirubin 0.7 mg/dL (0.2-1.3); Total Protein 5.8 g/dL (6.3-8.2)
[2025-01-29 08:48] LABS: NT-Pro-B-Type Natriuretic Pept 1380 pg/mL
[2025-01-29] MEDS ORDERED: ACETAMINOPHEN TAB 325 MG TAB PO PRN (08:58)
[2025-01-29] MEDS ORDERED: NALOXONE 0.4 MG/ML 1 ML VIAL IV PRN (08:58)
[2025-01-29] MEDS ORDERED: ONDANSETRON 4 MG/2 ML VIAL IVP PRN (08:58)
[2025-01-29] MEDS ORDERED: MORPHINE SULFATE 4 MG/ML SYRINGE IV PRN (08:58)
[2025-01-29] MEDS ORDERED: METOCLOPRAMIDE 10 MG TAB PO PRN (09:42)
[2025-01-29] MEDS ORDERED: ONDANSETRON ODT 4 MG TAB PO PRN (09:42)
[2025-01-29] MEDS ORDERED: ALBUTEROL NEBULIZED 2.5 MG/3 ML INHALATION PRN (09:42)
[2025-01-29] MEDS ORDERED: MECLIZINE 12.5 MG TAB PO PRN (09:42)
[2025-01-29] MEDS: MORPHINE SULFATE 2 MG/ML SYRINGE IVP ONE (10:34)
--- NOTE | 2025-01-29 12:46 | P.CRDCN ---
History of Present Illness Consult date: 01/29/25 Consult reason: chest pain History of present illness: This is an 79-year-old female patient of Dr. Appiah with past medical history of coronary artery disease status post PCI of the RCA, hypertension, dyslipidemia, carotid atherosclerosis, lower extremity edema, COPD, lung cancer, remote history of tobacco use and dependence. Regarding lung cancer, patient states that she has completed chemotherapy and radiation therapy 3 weeks ago. Patient presented to the hospital due to chest pain that was between her breast. It had sudden onset at 4:30 in the morning and may have woke her from a sleep. She states she then tried to lay down and the pain went through to her back. It is not as bad now as when it first started. She states that every time she takes a deep breath the pain is worse. She denies any associated symptoms such as nause a, sweats, nausea, vomiting, lightheadedness or dizziness. Patient is seen today in the emergency center waiting for a bed on the observation unit. Blood pressure 151/58, heart rate 81, pulse ox 94% on 2 L nasal cannula, afebrile. -EKG: Sinus rhythm with PACs. -Chest x-ray: No acute process. -Laboratory studies: WBC 6.8, hemoglobin 10.9, sodium 135, potassium 3.5, BUN 19 and creatinine 1.07. Troponin negative x 1. proBNP 1380. -Home cardiac medications: Aspirin 81 mg daily, Lasix 40 mg daily. -Cardiac catheterization performed in 2013 with 80% proximal RCA status post stent. -Echocardiogram performed 10/18/2022 revealed normal EF with mild MS. -Lexiscan stress test performed 10/18/2022 revealed normal EF, small distal anterior ischemia. Review Of Systems: At the time of my exam: CONSTITUTIONAL: Denies fever or chills. HEENT: Denies blurred vision, vision changes, or eye pain. Denies hemoptysis CARDIOVASCULAR: Reports chest pain. Denies orthopnea. Denies PND. Denies palpitations RESPIRATORY: Denies shortness of breath. GASTROINTESTINAL: Denies abdominal pain. Denies nausea or vomiting. HEMATOLOGIC: Denies bleeding disorders. GENITOURINARY: Denies any blood in urine. SKIN: Denies puritis. Denies rash. Physical examination: Gen: This is a 79-year-old female in no acute distress VS: reviewed HEENT: Head is atraumatic, normocephalic. Pupils equal, round. Sclerae is anicteric. NECK: Supple. No JVD. LUNGS: Clear to auscultation. No wheezes or rhonchi. No intercostal retr actions. HEART: Regular rate and rhythm. Systolic murmur. ABDOMEN: Soft No tenderness. EXTREMITIES: No pedal edema. No calf tenderness. NEUROLOGICAL: Patient is awake, alert and oriented x3. Assessment: Atypical chest pain, acute coronary syndrome ruled out History of coronary artery disease with previous PCI of the RCA in 2014 Hypertension Dyslipidemia Carotid atherosclerosis COPD Recently diagnosed lung cancer status postchemotherapy and radiation therapy Plan: Continue patient's home cardiac medications Obtain 2-D echocardiogram and Doppler study to assess cardiac structure and function No plan for no further cardiac workup If echocardiogram is unremarkable, patient is cleared for discharge from cardiology and may follow-up in the office with Dr. Appiah in 1 to 2 weeks. Thank you kindly for this consultation. Nurse practitioner note has been reviewed, I agree with documented findings and plan of care. Patient was seen and examined. Past Medical History Past Medical History: Cancer, COPD, GERD/Reflux, Hypertension, Osteoarthritis (OA), Pneumonia Additional Past Medical History / Comment(s): LEFT ANKLE EDEMA, SOB, CHRONIC COUGH, hx. right breast ca 2019; pt reports she went to [facility] on [address] about 3 weeks ago for fatigue, severe headache, & nausea- was diagnosed with mononucleosis- advised pt she needs to contact Dr. Salgado to notify him of this. History of Any Multi-Drug Resistant Organisms: None Reported Past Surgical History: Breast Surgery, Cholecystectomy, Hysterectomy Additional Past Surgical History / Comment(s): LEFT BREAST BX BENIGN, right breast lumpectomy 2019 with radiation Past Anesthesia/Blood Transfusion Reactions: Previous Problems w/ Anesthesia Additional Past Anesthesia/Blood Transfusion Reaction / Comment(s): pt states hard time waking up out of anesthesia Past Psychological History: Anxiety, Depression, Panic Disorder Smoking Status: Former smoker - Past Family History Mother Family Medical History: Coronary Artery Disease (CAD), Hypertension Additional Family Medical History / Comment(s): cabg (triple) when 76, brain tumor Father Family Medical History: Prostate Disorder Additional Family Medical History / Comment(s): congenital heart fauilure; prostate ca Medications and Allergies Home Medications Medication Instructions Recorded Confirmed Type Furosemide [Lasix] 40 mg PO DAILY 08/17/14 01/29/25 History Sertraline [Zoloft] 100 mg PO DAILY 08/17/14 01/29/25 History Fluticasone/Umeclidin/Vilanter 1 puff INHALATION RT-DAILY 08/24/24 01/29/25 History [Trelegy Ellipta 100-62.5-25] Albuterol Sulfate [Ventolin HFA] 2 puff INHALATION RT-Q4H PRN 01/29/25 01/29/25 History Aspirin 324 mg PO ONCE PRN 01/29/25 01/29/25 History Aspirin EC [Ecotrin Low Dose] 81 mg PO DAILY 01/29/25 01/29/25 History Meclizine [Antivert] 12.5 mg PO TID PRN 01/29/25 01/29/25 History Metoclopramide [Reglan] 10 mg PO QID PRN 01/29/25 01/29/25 History Omeprazole Magnesium [PriLOSEC OTC] 20 mg PO DAILY 01/29/25 01/29/25 History Ondansetron [Zofran] 4 mg PO Q4H PRN 01/29/25 01/29/25 History Allergies Allergy/AdvReac Type Severity Reaction Status Date / Time egg Allergy Unknown Verified 01/29/25 09:44 Sulfa (Sulfonamide Allergy Unknown Verified 01/29/25 09:44 Antibiotics) atorvastatin calcium AdvReac leg cramps Verified 01/29/25 09:44 [From Lipitor] codeine AdvReac lethargic Verified 01/29/25 09:44 Estrogens AdvReac anxiety/see Verified 01/29/25 09:44 comment Physical Exam Vitals: Vital Signs Temp Pulse Resp BP Pulse Ox 01/29/25 06:28 98.5 F 81 22 141/58 94 L Intake and Output 01/28/25 01/29/25 01/29/25 22:59 06:59 14:59 Other: Weight 87.543 kg Results 01/29/25 08:13 01/29/25 08:13 Cardiac Enzymes 01/29/25 01/29/25 Range/Units 08:13 08:13 AST 20 (14-36) U/L Troponin I 0.024 (0.000-0.034) ng/mL Coagulation 01/29/25 Range/Units 08:13 PT 12.4 (10.0-12.5) sec APTT 27.5 (22.0-30.0) sec CBC 01/29/25 Range/Units 08:13 WBC 6.8 (3.8-10.6) k/uL RBC 3.87 (3.80-5.40) m/uL Hgb 10.9 L (11.4-16.0) gm/dL Hct 33.7 L (34.0-46.0) % Plt Count 190 (150-450) k/uL Comprehensive Metabolic Panel 01/29/25 Range/Units 08:13 Sodium 135 L (137-145) mmol/L Potassium 3.5 (3.5-5.1) mmol/L Chloride 98 (98-107) mmol/L Carbon Dioxide 31 H (22-30) mmol/L BUN 19 H (7-17) mg/dL Creatinine 1.07 H (0.52-1.04) mg/dL Glucose 140 H (74-99) mg/dL Calcium 8.9 (8.4-10.2) mg/dL AST 20 (14-36) U/L ALT 10 (4-34) U/L Alkaline Phosphatase 66 (38-126) U/L Total Protein 5.8 L (6.3-8.2) g/dL Albumin 3.3 L (3.5-5.0) g/dL Current Medications Generic Name Dose Route Start Last Admin Trade Name Freq PRN Reason Stop Dose Admin Acetaminophen 650 mg 01/29/25 08:58 Acetaminophen Tab 325 Mg Tab PO Q6HR PRN Mild Pain or Fever > 100.5 Albuterol Sulfate 2.5 mg 01/29/25 09:42 Albuterol Nebulized 2.5 Mg/3 Ml INHALATION RT-Q4H PRN Shortness Of Breath Aspirin 81 mg 01/30/25 09:00 Aspirin 81 Mg PO DAILY [facility] Budesonide/Formoterol Fumarate 2 puff 01/30/25 08:00 Symbicort 160-4.5 Mcg Inhaler INHALATION RT-BID AMBER Furosemide 40 mg 01/30/25 09:00 Furosemide 40 Mg Tab PO DAILY AMBER Meclizine HCl 12.5 mg 01/29/25 09:42 Meclizine 12.5 Mg Tab PO TID PRN dizziness Metoclopramide HCl 10 mg 01/29/25 09:42 Metoclopramide 10 Mg Tab PO QID PRN Nausea And Vomiting Morphine Sulfate 4 mg 01/29/25 08:58 Morphine Sulfate 4 Mg/Ml Syringe IV Q4HR PRN Severe Pain (Scale 7 to 10) Naloxone HCl 0.2 mg 01/29/25 08:58 Naloxone 0.4 Mg/Ml 1 Ml Vial IV Q2M PRN Opioid Reversal Ondansetron HCl 4 mg 01/29/25 08:58 Ondansetron 4 Mg/2 Ml Vial IVP Q8HR PRN Nausea And Vomiting Ondansetron HCl 4 mg 01/29/25 09:42 Ondansetron Odt 4 Mg Tab PO Q4H PRN Nausea Pantoprazole Sodium 40 mg 01/30/25 09:00 Pantoprazole 40 Mg Tablet PO DAILY AMBER Sertraline HCl 100 mg 01/30/25 09:00 Sertraline 100 Mg Tab PO DAILY AMBER Tiotropium [place] 2 puff 01/30/25 08:00 Tiotropium 2.5 Mcg Inhaler INHALATION RT-DAILY AMBER Intake and Output 01/28/25 01/29/25 01/29/25 22:59 06:59 14:59 Other: Weight 87.543 kg 01/29/25 08:13 01/29/25 08:13
[2025-01-29] MEDS ORDERED: HYDROcodone/APAP 5-325MG 1 EACH TAB PO PRN (12:47)
[2025-01-29] MEDS: METOPROLOL TARTRATE 25 MG TAB PO SCH (14:29)
[2025-01-29] MEDS: PANTOPRAZOLE 40 MG/10 ML VIAL IVP SCH (14:30)
[2025-01-29] MEDS: HYDROcodone/APAP 5-325MG 1 EACH TAB PO STA (18:21)
[2025-01-29] MEDS: SODIUM CHLORIDE 0.9% 1,000 ML IV SCH (18:24)
[2025-01-29 23:27] LABS: Influenza A Not Detected (Not Detectd); Influenza B Not Detected (Not Detectd); RSV Not Detected (Not Detectd)
--- NOTE | 2025-01-30 01:33 | HP ---
HISTORY AND PHYSICAL This is a combined history and physical and discharge summary. CHIEF COMPLAINT: Chest pain. HISTORY OF PRESENT ILLNESS: This is an 79-year-old woman with a past medical history of multiple medical problems including lung cancer, COPD, CAD, who is complaining of chest pain focused on the mid part of the sternum and some back pain also. The patient had extensive evaluation in the ER, which showed no abnormality. The troponins are negative. Cardiology saw the patient and recommended 2D echo and outpatient followup also. There is no history of any fever, rigors, or chills at this time. PAST MEDICAL HISTORY: Reviewed include GERD, DJD, and pneumonia. Rest of the history and rest of the chart is also noted. HOME MEDICATIONS: Reviewed include aspirin, dose and rest of medications reviewed. ALLERGIES: Reviewed include egg, rest of allergies noted. FAMILY HISTORY: History of CAD. SOCIAL HISTORY: Previous smoker. REVIEW OF SYSTEMS: Fourteen-point review of systems is negative except as mentioned earlier. PHYSICAL EXAMINATION: VITAL SIGNS: Pulse is 87, blood pressure 140/70, and respirations 21. HEENT: Conjunctivae normal. NECK: No JVD. CARDIOVASCULAR: S1, S2. RESPIRATIONS: Breath sounds diminished at the bases. Few scattered rhonchi. No crackles. ABDOMEN: Soft, nontender. LEGS: No edema. NERVOUS SYSTEM: Nonfocal. SKIN: No ulcer, rash, bleeding. JOINTS: No active deforming arthropathy. LABORATORY DATA: Reviewed. ASSESSMENT: 1. Chest pain possibly musculoskeletal, possible coronary artery disease, myocardial infarction ruled out. 2. Possible pericarditis. 3. History of lung cancer. 4. History of hypertension. 5. Chronic obstructive pulmonary disease. 6. History of degenerative joint disease. RECOMMENDATIONS: This 79-year-old woman presented with multiple complex medical issues, we will monitor the patient closely and continue the current symptomatic treatment. As mentioned earlier by Cardiology, we will obtain a 2D echo with Doppler and I would also recommend D-dimer and if D-dimer is positive, I will recommend CT angio of the chest. Recommend close followup with primary physician in the outpatient setting. The prognosis is guarded, but currently the patient is medically stable. Discussed with the patient. Further recommendations to follow. Also recommend outpatient followup with Cardiology. Please refer to the medication reconciliation sheet for list of medications. MMODL / IJN: [id number] /
[2025-01-30] MEDS: METOPROLOL TARTRATE 25 MG TAB PO STA (04:08)
[2025-01-30] MEDS: SERTRALINE 100 MG TAB PO SCH (07:39)
[2025-01-30] MEDS: ASPIRIN 81 MG PO SCH (07:39)
[2025-01-30] MEDS: FUROSEMIDE 40 MG TAB PO SCH (07:39)
[2025-01-30] MEDS: SYMBICORT 160-4.5 MCG INHALER INHALATION SCH (08:50)
[2025-01-30] MEDS: TIOTROPIUM 2.5 MCG INHALER INHALATION SCH (08:50)
[2025-01-30] MEDS ORDERED: PANTOPRAZOLE 40 MG TABLET PO SCH (09:00)
[2025-01-30] MEDS ORDERED: AMIODARONE 200 MG TAB PO SCH (09:00)
[2025-01-30] MEDS: AMIODARONE 200 MG TAB PO SCH (09:44)
[2025-01-30] MEDS: APIXABAN 5 MG TAB PO SCH (09:44)
[2025-01-30 09:55] LABS: Basophils # (A) 0.03 X 10*3/uL (0.00-0.10); Basophils % (A) 0.4 %; Eosinophils # (A) 0.05 X 10*3/uL (0.04-0.35); Eosinophils % (A) 0.6 %; Lymphocytes # (A) 0.27 X 10*3/uL (0.90-5.00); Lymphocytes % (A) 3.4 %; MCH 28.5 pg (27.0-32.0); MCHC 31.3 g/dL (32.0-37.0); MCV 91.2 FL (80.0-97.0); Mean Platelet Volume 11.1 FL (9.5-12.2); Monocytes # (A) 0.73 X 10*3/uL (0.20-1.00); Monocytes % (A) 9.1 %; NRBC Per 100 WBC 0 X 10*3/uL (0.00-0.01); Platelet Count 191 X 10*3/uL (140-440); RBC 3.51 X 10*6/uL (4.10-5.20); WBC 8.02 X 10*3/uL (4.50-10.00)
[2025-01-30 10:21] LABS: ALT 8 U/L (8-44); AST 17 U/L (13-35); Albumin 3.1 g/dL (3.8-4.9); Albumin/Globulin Ratio 1.55 Ratio (1.60-3.17); Alkaline Phosphatase 60 U/L (41-126); Blood Urea Nitrogen 15.5 mg/dL (9.0-27.0); Calcium 8.5 mg/dL (8.7-10.3); Carbon Dioxide 23.9 mmol/L (21.6-31.8); Chloride 102 mmol/L (96-109); Glucose 143 mg/dL (70-110); Potassium 3.5 mmol/L (3.5-5.5); Sodium 138 mmol/L (135-145); Total Bilirubin 0.8 mg/dL (0.3-1.2); Total Protein 5.1 g/dL (6.2-8.2)
--- NOTE | 2025-01-30 13:29 | CT ---
EXAMINATION TYPE: CT chest angio for PE DATE OF EXAM: 01/30/2025 COMPARISON: Prior chest CT August 27, 2024 CLINICAL INDICATION: Female, 79 years old with history of Chest pain, sob, elev d dimer, Chest pain, SOB, elevated dimer, TECHNIQUE: CTA scan of the thorax is performed with IV Contrast, patient injected with 100 mL of Isovue 370, pul monary embolism protocol. MIP Images are created on CT scanner and reviewed. CT DLP: 435 mGycm. Automated Exposure Control for Dose Reduction was Utilized. FINDINGS: LUNGS: Moderate to severe underlying emphysematous change is redemonstrated greatest in the upper pramod gs. There are new small to tiny left greater than right pleural effusions with associated compressive atelectasis in the bases. There is increased interstitial prominence bilaterally. No pneumothorax se en. There is left lower lobe mild to moderate atelectasis and/or scarring. Prior visualized 1.6 cm no dule medially is less well seen. Correlate clinically. HEART: Size within normal limits. Severe three-vessel coronary artery calcifications are redemonstrat ed. Dense surgical change and/or calcification at the level of the mitral valve is redemonstrated. MEDIASTINUM: There is satisfactory enhancement of the pulmonary artery and its branches, there is no CT evidence for pulmonary embolism. Enlarged pulmonary arteries suggesting underlying pulmonary mona ry hypertension is redemonstrated. Correlate clinically. Tiny pericardial effusion is seen. OTHER: Multilevel spurring anterior bridging osteophytes in the thoracic spine are redemonstrated. Th ere is stable 3.3 cm focal thin-walled fluid collection in the anterior wall of the right mid thorax or breast axial image 48. Favor seroma. IMPRESSION: 1. No CT evidence for acute pulmonary embolism. 2. Moderate to advanced underlying emphysematous change redemonstrated. New small to tiny bilateral p leural effusions and [id number] interstitial edema. Findings suggest fluid overload state. Iqra elate clinically. [facility], , 01/30/2025 1:27 PM
--- NOTE | 2025-01-30 14:59 | CA ---
Transthoracic Echo Report Name: Francisca Berger Age: 79 Gender: F : 1945 Exam Date: 01/29/2025 16:30 Exam Location: [facility] Ht (in): 62 Wt (lb): 193 Ordering Physician: Yahaira Martinez Attending/Referring Phys: [id number], Michelle [employer] Manager Alannah Wise RDCS Procedure CPT: Indications: LVF Cardiac Hx: Technical Quality: Fair Contrast 1: Total Dose (mL): Contrast 2: Total Dose (mL): MEASUREMENTS (Male / Female) Normal Values 2D ECHO LV Diastolic Volume MOD BP 66.9 cm??? 67 - 155 / 56 - 104 cm??? LV Systolic Volume MOD BP 26.1 cm??? 22 - 58 / 19 - 49 cm??? LV Ejection Fraction MOD BP 61.0 % >= 55 % LV Cardiac Index MOD BP 1756.9 cm???/min???m??? LV Diastolic Volume MOD 4C 66.5 cm??? LV Systolic Volume MOD 4C 26.4 cm??? LV Ejection Fraction MOD 4C 60.3 % LV Cardiac Index MOD 4C 1727.0 cm???/min???m??? LV Diastolic Length 4C 7.5 cm LV Systolic Length 4C 6.4 cm LV Diastolic Volume MOD 2C 62.3 cm??? LV Systolic Volume MOD 2C 22.8 cm??? LV Ejection Fraction MOD 2C 63.3 % LV Cardiac Index MOD 2C 1698.8 cm???/min???m??? LV Diastolic Length 2C 6.9 cm LV Systolic Length 2C 5.7 cm DOPPLER AV Peak Velocity 169.2 cm/s AV Peak Gradient 11.5 mmHg AV Mean Velocity 119.6 cm/s AV Mean Gradient 6.3 mmHg AV Velocity Time Integral 28.8 cm LVOT Peak Velocity 136.1 cm/s LVOT Peak Gradient 7.4 mmHg LVOT Velocity Time Integral 23.9 cm MV Peak Velocity 185.4 cm/s MV Peak Gradient 13.7 mmHg MV Mean Velocity 111.0 cm/s MV Mean Gradient 5.6 mmHg MV Velocity Time Integral 42.5 cm Mitral E Point Velocity 121.7 cm/s Mitral A Point Velocity 159.8 cm/s Mitral E to A Ratio 0.8 MV Deceleration Time 308.0 ms MV E' Velocity 4.3 cm/s Mitral E to MV E' Ratio 28.2 FINDINGS Left Ventricle Left ventricular ejection fraction is estimated at 60-65 %. Left ventricular cavity size normal. Left ventricular wall thickness normal. No obvious regional wall motion abnormalities. Right Ventricle Mild right ventricular dilatation. Normal right ventricular global systolic function. Unable to estimate the right ventricular systolic pressure. Right Atrium Normal right atrial size. Left Atrium Normal left atrial size. Mitral Valve Mitral valve thickened. Mitral annular calcification. Moderate mitral stenosis. No mitral regurgitation. Aortic Valve Aortic valve not well visualized. No aortic valve stenosis or regurgitation. Tricuspid Valve Structurally normal tricuspid valve. No tricuspid stenosis. Trace tricuspid regurgitation. Pulmonic Valve Pulmonic valve not well visualized. No pulmonic stenosis. No pulmonic regurgitation. Pericardium No pericardial effusion. Aorta Aortic root and proximal ascending aorta not well visualized. CONCLUSIONS Indication for the procedure: Chest pain Normal LV size and function Previewed by: Dr. Samir Bowen MD (Electronically Signed) Final Date: 30 January 2025 14:58
--- NOTE | 2025-01-30 15:01 | P.PN ---
Subjective Progress Note Date: 01/30/25 The patient is an 79-year-old female who follows in the office with Dr. Masters. She had presented to the hospital with new onset of chest discomfort. Overall ACS workup and she was pending for discharge, when she went into atrial fibrillation overnight. Patient had episodes of RVR up into the 140s. Patient reports increased shortness of breath with her new arrhythmia. Patient was also found to have elevated D-dimer. Patient has declined CT scan of the chest as she would like a more conservative approach to her care. She does have lung cancer. Patient resting comfortably in bed at the time of my examination. She states she does have shortness of breath with minimal exertion, even just ambulating to the bathroom. No chest pain or pressure. GENERAL: Well-appearing, well-nourished and in no acute distress. NECK: Supple without JVD or thyromegaly. LUNGS: Breath sounds clear to auscultation bilaterally. Respiration equal and unlabored. No wheezes, rales or rhonchi. HEART: Irregular rate and rhythm without murmurs, rubs or gallops. S1 and S2 heard. EXTREMITIES: Normal range of motion, no edema. No clubbing or cyanosis. Peripheral pulses intact and strong. TELEMETRY: A-fib with RVR IMPRESSION: Chest discomfort Elevated D-dimer New onset A-fib with RVR History of CAD History of hypertension History of dyslipidemia History of COPD Sent diagnosis of lung cancer, status postchemotherapy PLAN: Start anticoagulation Start amiodarone 200 mg 3 times daily for 1 week, then twice daily Increase beta-isa tomorrow if patient remains tachycardic Echocardiogram results pending Patient would like a conservative approach to her care as she has advanced lung cancer. Should she like to be discharged, we recommend follow-up with primary station installer Dr. Appiah in 1 week, however we would advise an additional 24 to 48 hours inpatient to adjust medications. This will likely improve her symptoms prior to discharge. I am dictating on behalf of Dr Samir Bowen's history/physical and assessment/plan. Objective - Vital Signs Vital signs: Vital Signs Temp 98.6 F 01/30/25 06:55 Pulse 81 01/30/25 06:55 Resp 16 01/30/25 06:55 BP 103/51 01/30/25 06:55 Pulse Ox 96 01/30/25 06:55 FiO2 Intake & Output 01/29/25 01/30/25 01/30/25 18:59 06:59 18:59 Intake Total 118 Balance 118 Weight 87.543 kg Intake: Oral 118 Other: Voiding Method Toilet # Voids 2 1 # Bowel Movements 1 - Labs CBC & Chem 7: 01/30/25 05:11 01/30/25 05:11 Labs: Abnormal Lab Results - Last 24 Hours (Table) 01/29/25 01/29/25 01/29/25 Range/Units 08:13 08:13 08:13 ESR 72 H (0-30) mm/Hr INR 1.2 H (<1.2) D-Dimer (<0.60) mg/L FEU Sodium 135 L (137-145) mmol/L Carbon Dioxide 31 H (22-30) mmol/L BUN 19 H (7-17) mg/dL Creatinine 1.07 H (0.52-1.04) mg/dL Glucose 140 H (74-99) mg/dL C-Reactive Protein (<1.0) mg/dL Total Protein 5.8 L (6.3-8.2) g/dL Albumin 3.3 L (3.5-5.0) g/dL 01/29/25 01/29/25 Range/Units 08:13 14:02 ESR (0-30) mm/Hr INR (<1.2) D-Dimer 1.60 H (<0.60) mg/L FEU Sodium (137-145) mmol/L Carbon Dioxide (22-30) mmol/L BUN (7-17) mg/dL Creatinine (0.52-1.04) mg/dL Glucose (74-99) mg/dL C-Reactive Protein 7.0 H (<1.0) mg/dL Total Protein (6.3-8.2) g/dL Albumin (3.5-5.0) g/dL
[2025-01-30] MEDS: FUROSEMIDE 10 MG/ML 2 ML VIAL IV ONE (16:11)
[2025-01-30] MEDS: AMIODARONE 360 MG in DEXTROSE 5% IN WATER 200 ML IV ONE (18:45)
--- NOTE | 2025-01-30 20:06 | PN ---
PROGRESS NOTE DATE OF SERVICE: 01/30/2025 SUBJECTIVE: This 79-year-old woman is admitted with chest pain, also had tachycardia. CT angio chest showed COPD. PHYSICAL EXAMINATION: VITAL SIGNS: Pulse is 81, blood pressure n respirations 16. CHEST: Few scattered rhonchi. ABDOMEN: Soft. NERVOUS SYSTEM: Nonfocal. LABORATORY DATA: Hemoglobin 10. ASSESSMENT: 1. Chest pain, possibly musculoskeletal, possible unstable angina. 2. Tachycardia. 3. Rule out congestive heart failure. 4. Possible pericarditis. 5. History of lung cancer. 6. Multiple complex medical issues. RECOMMENDATIONS: Recommend to continue current medications and continue symptomatic treatment. Otherwise, closely follow up with Cardiology. I would also recommend chest x- ray to rule out CHF. One dose of Lasix. MMODL / IJN: [id number] / MTDD
[2025-01-30] MEDS: SODIUM CHLORIDE 0.9% 500 ML 500 ML IV ONE (20:47)
[2025-01-31 06:51] LABS: Anisocytosis Slight; Basophils % (A) 0 %; Eosinophils # (A) 0.1 k/uL (0-0.7); Eosinophils % (A) 1 %; HCT 32.3 % (34.0-46.0); HGB 10.3 gm/dL (11.4-16.0); Hypochromasia Marked; Lymphocytes # (A) 0.3 k/uL (1.0-4.8); Lymphocytes % (A) 4 %; MCH 28.3 pg (25.0-35.0); MCHC 31.9 g/dL (31.0-37.0); MCV 88.7 fL (80.0-100.0); Mean Platelet Volume 8.3; Monocytes # (A) 0.5 k/uL (0-1.0); Monocytes % (A) 6 %; Neutrophils % (A) 87 %; Platelet Count 206 k/uL (150-450); Poikilocytosis Moderate; RBC 3.64 m/uL (3.80-5.40); RDW 17.5 % (11.5-15.5)
[2025-01-31 07:12] LABS: African American GFR (CKD) 49 (>60 ml/min/1.73 sqM); Anion Gap 6 mmol/L; Blood Urea Nitrogen 24 mg/dL (7-17); Calcium 8.6 mg/dL (8.4-10.2); Carbon Dioxide 27 mmol/L (22-30); Chloride 101 mmol/L (98-107); Glucose 120 mg/dL (74-99); Non-African American GFR(CKD) 43 (>60 ml/min/1.73 sqM); Potassium 3.7 mmol/L (3.5-5.1); Sodium 134 mmol/L (137-145)
--- NOTE | 2025-01-31 10:04 | P.PN ---
Subjective Progress Note Date: 01/31/25 This is Guru Martinez NP, I'm dictating on behalf of Dr. Bowen's H&P and A&P. Patient was interviewed and examined. Patient is a pleasant 79-year-old female who presented to the hospital with chest pain, and was found to be in new onset A-fib with RVR. Patient was started on Cardizem, which was discontinued as she converted to normal sinus rhythm. She was started on amiodarone 200 mg 3 times daily, and her heart rates have remained controlled. She is no longer reporting any chest pain. She is still reporting significant shortness of breath. She remains on supplemental oxygen. GENERAL: Well-appearing, well-nourished and in no acute distress. NECK: Supple without JVD or thyromegaly. LUNGS: Breath sounds clear to auscultation bilaterally. Respiration equal and unlabored. No wheezes, rales or rhonchi. HEART: Regular rate and rhythm without murmurs, rubs or gallops. S1 and S2 heard. EXTREMITIES: Normal range of motion, no edema. No clubbing or cyanosis. Peripheral pulses intact and strong. VITALS: Temp 97.9, pulse 71, respirations 16, blood pressure 112/65, O2 saturation 97% on 2 L TELEMETRY: Sinus mechanism LABS: White count 8, hemoglobin 10.3, platelets 206, sodium 134, potassium 3.7, BUN 24, creatinine 1.19, calcium 8.6. IMPRESSION: 1. Chest discomfort 2. Elevated D-dimer 3. New onset A-fib with RVR 4. History of CAD 5. History of hypertension 6. History of dyslipidemia 7. History of COPD 8. Recent diagnosis of lung cancer, status postchemotherapy PLAN: Decrease Lasix to 20 mg daily. Continue amiodarone 200 mg 3 times daily x 1 week, then decrease to 200 mg twice daily for 1 month, then continue 200 mg daily thereafter. Please follow this s chedule. No further recommendations from a cardiology standpoint. Thank you for allowing us to participate in the care of this patient. Objective - Vital Signs Vital signs: Vital Signs Temp 97.9 F 01/31/25 08:00 Pulse 71 01/31/25 08:00 Resp 16 01/31/25 08:00 BP 112/65 03/23/25 08:00 Pulse Ox 97 01/31/25 04:30 FiO2 Intake & Output 01/30/25 01/31/25 01/31/25 18:59 06:59 18:59 Intake Total 630 163.887 Balance 630 163.887 Weight 89.5 kg Intake: Intake, IV Titration 163.887 Amount Amiodarone 360 mg In 163.887 Dextrose 5% in Water 200 ml @ 1 MG/MIN 33.333 mls/ hr IV .Q6H ONE Rx#: [id number] Oral 630 Other: Voiding Method Toilet Toilet Toilet # Voids 5 1 - Labs CBC & Chem 7: 01/31/25 06:31 01/31/25 06:31 Labs: Abnormal Lab Results - Last 24 Hours (Table) 01/30/25 01/31/25 01/31/25 Range/Units 05:11 06:31 06:31 RBC 3.64 L (3.80-5.40) m/uL Hgb 10.3 L (11.4-16.0) gm/dL Hct 32.3 L (34.0-46.0) % RDW 17.5 H (11.5-15.5) % Lymphocytes # 0.3 L (1.0-4.8) k/uL Sodium 134 L (137-145) mmol/L Anion Gap 12.10 H (4.00-12.00) mmol/L BUN 24 H (7-17) mg/dL Creatinine 1.19 H (0.52-1.04) mg/dL Est GFR (CKD-EPI) 57 L (>=60) Glucose 143 H 120 H (70-110) mg/dL Calcium 8.5 L (8.7-10.3) mg/dL Total Protein 5.1 L (6.2-8.2) g/dL Albumin 3.1 L (3.8-4.9) g/dL Albumin/Globulin Ratio 1.55 L (1.60-3.17) Ratio
[2025-01-31] MEDS: AMIODARONE 200 MG TAB PO SCH (10:08)
--- NOTE | 2025-01-31 22:33 | PN ---
PROGRESS NOTE DATE OF SERVICE: 01/31/2025 SUBJECTIVE: This is an 79-year-old woman, who was admitted with chest pain as well as tachycardia, is being closely monitored. No chest pain. No palpitation. The patient also had new onset atrial fibrillation. OBJECTIVE: VITAL SIGNS: Pulse is 67, blood pressure 130/60, respirations 16. CHEST: A few scattered rhonchi and crackles. ABDOMEN: Soft. LABORATORY DATA: Reviewed. ASSESSMENT: 1. Chest pain, possible musculoskeletal, possible unstable angina. 2. Atrial fibrillation with a rapid ventricular rate new onset. 3. Tachycardia. 4. Rule out congestive heart failure. 5. History of lung cancer. 6. Multiple complex medical issues. RECOMMENDATIONS: Recommend to continue current management and continue symptomatic treatment. Repeat labs. Recommend repeat chest x-ray and continue to monitor. Further recommendations to follow. MMODL / IJN: [id number] /
[2025-02-01 05:41] LABS: Anisocytosis Slight; Basophils % (A) 0 %; Eosinophils # (A) 0.1 k/uL (0-0.7); Eosinophils % (A) 2 %; HCT 32.8 % (34.0-46.0); HGB 10.2 gm/dL (11.4-16.0); Hypochromasia Moderate; Lymphocytes # (A) 0.3 k/uL (1.0-4.8); Lymphocytes % (A) 4 %; MCH 28.1 pg (25.0-35.0); MCHC 31.2 g/dL (31.0-37.0); MCV 90.1 fL (80.0-100.0); Mean Platelet Volume 8.1; Monocytes # (A) 0.4 k/uL (0-1.0); Monocytes % (A) 6 %; Neutrophils # (A) 5.8 k/uL (1.3-7.7); Neutrophils % (A) 87 %; Platelet Count 206 k/uL (150-450); Poikilocytosis Moderate; RBC 3.64 m/uL (3.80-5.40); RDW 17.4 % (11.5-15.5); WBC 6.7 k/uL (3.8-10.6)
[2025-02-01 05:56] LABS: African American GFR (CKD) 57 (>60 ml/min/1.73 sqM); Anion Gap 1 mmol/L; Blood Urea Nitrogen 22 mg/dL (7-17); Calcium 8.6 mg/dL (8.4-10.2); Carbon Dioxide 30 mmol/L (22-30); Chloride 102 mmol/L (98-107); Glucose 110 mg/dL (74-99); Non-African American GFR(CKD) 49 (>60 ml/min/1.73 sqM); Potassium 3.7 mmol/L (3.5-5.1); Sodium 133 mmol/L (137-145)
--- NOTE | 2025-02-01 07:06 | XR ---
EXAMINATION TYPE: XR chest 1V portable DATE OF EXAM: 02/01/2025 CLINICAL INDICATION: Female, 79 years old with history of chf, progress study. TECHNIQUE: Single AP portable upright view of the chest is obtained. COMPARISON: Chest x-ray from 3 days earlier FINDINGS: There are chronic parenchymal changes bilaterally with increased opacity in the right uppe r lobe on current study. Stable left basilar increased opacity. Cardiac silhouette size is stable and upper limits of normal with atherosclerotic thoracic aorta. Osseous structures are intact. IMPRESSION: Chronic parenchymal changes with persistent left basilar acute infiltrate and/or atelecta sis and new right upper lobe acute infiltrate and/or atelectasis. [facility], , 02/01/2025 7:04 AM
[2025-02-01] MEDS: FUROSEMIDE 20 MG TAB PO SCH (09:04)
[2025-02-01 17:37] LABS: Appearance,Urine Cloudy (Clear); Bacteria,Urine Rare /hpf; Bilirubin,Urine Negative (Negative); Blood,Urine Negative (Negative); Calcium Oxalate Crystals,Urine Many /hpf; Color,Urine Yellow; Glucose,Urine (UA) Negative (Negative); Hyaline Casts,Urine 1 /lpf (0-2); Ketones,Urine Negative (Negative); Leukocyte Esterase,Urine Negative (Negative); Mucus,Urine Rare /hpf; Nitrite,Urine Negative (Negative); PH, Urine 5.5 (5.0-8.0); Protein,Urine Trace (Negative); RBC,Urine 2 /hpf (0-5); Specific Gravity,Urine 1.024 (1.001-1.035); Squamous Epithelial Cell,Urine 3 /hpf (0-4); WBC,Urine 5 /hpf (0-5)
[2025-02-01 21:18] VITALS: TEMP 98.3
--- NOTE | 2025-02-01 22:12 | P.PN ---
Subjective Progress Note Date: 02/01/25 Principal diagnosis: New onset A fib Ms. Berger is a 79-year-old female with the past medical history of stage II lung cancer, COPD, CAD status post stenting coming in with a chief complaint of chest pain. Patient was diagnosed with new onset atrial fibrillation and started on anticoagulation. Today the patient was lying comfortably in the bed appears to be in no acute distress. She denies having any chest discomfort or palpitations. She denies having fevers chills. No abdominal pain nausea vomiting or diarrhea. Vitals are reviewed within normal limits labs are reviewed hemoglobin of 10.2 sodium 133 creatinine 1.07 albumin of 3.1. Objective - Vital Signs Vital signs: Vital Signs Temp 98.3 F 02/01/25 20:00 Pulse 69 02/01/25 20:00 Resp 18 02/01/25 20:00 BP 113/54 02/01/25 20:00 Pulse Ox 97 02/01/25 20:00 FiO2 Intake & Output 02/01/25 02/01/25 02/02/25 06:59 18:59 06:59 Intake Total 280 Balance 280 Weight 88.7 kg Intake: Oral 280 Other: Voiding Method Toilet Toilet Toilet # Voids 2 - Exam General Impression: Alert and oriented x3 HEENT: pupils equal and reactive to light bilaterally, mucous membranes moist. Cardiovascular: Irregularly irregular Respiratory - decreased BS bilaterally and mild wheezing Abdomen: abdomen soft, non-tender, non-distended, no organomegaly Neurological: no focal motor or sensory deficits noted Skin: Intact with no visualized rashes Psych: Normal affect and mood - Labs CBC & Chem 7: 02/01/25 05:10 02/01/25 05:10 Labs: Abnormal Lab Results - Last 24 Hours (Table) 02/01/25 02/01/25 02/01/25 Range/Units 05:10 05:10 17:08 RBC 3.64 L (3.80-5.40) m/uL Hgb 10.2 L (11.4-16.0) gm/dL Hct 32.8 L (34.0-46.0) % RDW 17.4 H (11.5-15.5) % Lymphocytes # 0.3 L (1.0-4.8) k/uL Sodium 133 L (137-145) mmol/L BUN 22 H (7-17) mg/dL Creatinine 1.07 H (0.52-1.04) mg/dL Glucose 110 H (74-99) mg/dL Urine Appearance Cloudy H (Clear) Urine Protein Trace H (Negative) Calcium Oxalate Crystal Many H (None) /hpf Urine Bacteria Rare H (None) /hpf Urine Mucus Rare H (None) /hpf Assessment and Plan Assessment: ASSESSMENT New onset atrial fibrillation History of CAD Hypertension Hyperlipidemia Newly diagnosed lung cancer COPD Mild protein calorie malnutrition Anemia of chronic disease Hyponatremia Plan Patient has been started on anticoagulation for new onset atrial fibrillation along with amiodarone. Heart rate around 100-110 Patient undergoing treatment by oncology for newly diagnosed lung cancer Continue with breathing treatments and will add prednisone as she has mild wheezing Continue with the rest of her current medication regimen Will monitor CBC and BMP Further recommendations to follow depending on the progress of the patient
[2025-02-02 08:17] VITALS: RESP 17
[2025-02-02] MEDS: predniSONE 20 MG TAB PO SCH (08:17)
[2025-02-02 11:28] VITALS: BP 124/83; PULSE 60
--- NOTE | 2025-02-04 15:12 | P.DS ---
Providers Date of admission: 01/29/25 08:51 Expected date of discharge: 02/02/25 Attending physician: Jyothi Chowdhury Consults: 01/29/25 08:58 Consult Physician Routine Consulting Provider: Deep Appiah Consult Reason/Comments: chest pain Do you want consulting provider notified?: Yes, Notify in am Primary care physician: Anne Mayberry Hospital Course: Final diagnosis New onset atrial fibrillation History of CAD Hypertension Hyperlipidemia Newly diagnosed lung cancer COPD, not in exacerbation Mild protein calorie malnutrition Anemia of chronic disease Hyponatremia Obesity with a BMI of 36.7 GI prophylaxis DVT prophylaxis No code Discharge disposition Patient is being discharged in a stable condition with guarded prognosis to home. Patient will follow-up with Dr. Mayberry in the outpatient setting upon discharge. Patient is to continue with anticoagulation and outpatient follow-up with cardiology as scheduled. Total time taken is greater than 35 minutes. Hospital course This is a 79-year-old female who was recently admitted with palpitations and shortness of breath noted to have new onset atrial fibrillation being closely monitored. Cardiology evaluating the patient and has made adjustments to medications and placed patient on anticoagulation. Patient currently rate controlled and will continue current regimen recommending outpatient follow-up. Patient has been cleared by cardiology for discharge. Patient reports to feeling well and extremely anxious and wants to go home. Please refer to cardiology consultation notes for further HPI. Patient also reported on exam that she does not want to pursue any further treatment regarding her cancer diagnoses. Currently no reports of chest pain, shortness of breath, or palpitations. Patient is afebrile. No reports of nausea or vomiting and patient is tolerating diet. Patient will be discharged home today. Guarded prognosis Physical exam: Gen: This is a 79-year-old female who is awake, alert and oriented x 3, well- developed, elderly appearing, obese HEENT: Head is atraumatic, normocephalic. Pupils equal, round. Sclerae is anicteric. NECK: Supple. No JVD. No lymphadenopathy. No thyromegaly. LUNGS: Diminished breath sounds bilaterally otherwise clear to auscultation. No wheezes or rhonchi. No intercostal retractions. HEART: S1, S2 are muffled, irregular ABDOMEN: Soft. Obese. Bowel sounds are present. No masses. No tenderness. EXTREMITIES: No pedal edema. No calf tenderness. NEUROLOGICAL: Patient is awake, alert and oriented x3. Cranial nerves 2 through 12 are grossly intact. Please refer to medication reconciliation sheet for a list of medications. The impression and plan of care has been dictated by Dee Molina, Nurse Practitioner as directed. Dr. Janet MD I have performed a history and examination and MDM of this patient, discussed the same with the dictator, and agree with the dictator's assessment and plan as written ,documented as a scribe. Based on total visit time, I have performed more than 50% of the visit. Patient Condition at Discharge: Fair Plan - Discharge Summary Discharge Rx Participant: Yes New Discharge Prescriptions: New Amiodarone [Cordarone] 200 mg PO TID #90 tab Apixaban [Eliquis] 5 mg PO BID #60 tab Metoprolol Tartrate [Lopressor] 25 mg PO TID #90 tab predniSONE See Taper PO DIRECTED #30 tab Acetaminophen Tab [Tylenol] 650 mg PO Q6HR PRN tab PRN Reason: Mild Pain Or Fever > 100.5 Continue Sertraline [Zoloft] 100 mg PO DAILY Omeprazole Magnesium [PriLOSEC OTC] 20 mg PO DAILY Aspirin EC [Ecotrin Low Dose] 81 mg PO DAILY Albuterol Sulfate [Ventolin HFA] 2 puff INHALATION RT-Q4H PRN PRN Reason: Shortness Of Breath Ondansetron [Zofran] 4 mg PO Q4H PRN PRN Reason: Nausea Fluticasone/Umeclidin/Vilanter [Trelegy Ellipta 100-62.5-25] 1 puff INHALATION RT-DAILY Meclizine [Antivert] 12.5 mg PO TID PRN PRN Reason: dizziness Metoclopramide [Reglan] 10 mg PO QID PRN PRN Reason: Nausea And Vomiting Changed Furosemide [Lasix] 20 mg PO DAILY #0 Discontinued Aspirin 324 mg PO ONCE PRN PRN Reason: Chest Pain Discharge Medication List Sertraline [Zoloft] 100 mg PO DAILY 08/17/14 [History] Fluticasone/Umeclidin/Vilanter [Trelegy Ellipta 100-62.5-25] 1 puff INHALATION RT-DAILY 08/24/24 [History] Albuterol Sulfate [Ventolin HFA] 2 puff INHALATION RT-Q4H PRN 01/29/25 [History] Aspirin EC [Ecotrin Low Dose] 81 mg PO DAILY 01/29/25 [History] Meclizine [Antivert] 12.5 mg PO TID PRN 01/29/25 [History] Metoclopramide [Reglan] 10 mg PO QID PRN 01/29/25 [History] Omeprazole Magnesium [PriLOSEC OTC] 20 mg PO DAILY 01/29/25 [History] Ondansetron [Zofran] 4 mg PO Q4H PRN 01/29/25 [History] Acetaminophen Tab [Tylenol] 650 mg PO Q6HR PRN tab 02/02/25 [Rx] Amiodarone [Cordarone] 200 mg PO TID #90 tab 02/02/25 [Rx] Apixaban [Eliquis] 5 mg PO BID #60 tab 02/02/25 [Rx] Furosemide [Lasix] 20 mg PO DAILY #0 02/02/25 [Rx] Metoprolol Tartrate [Lopressor] 25 mg PO TID #90 tab 02/02/25 [Rx] predniSONE See Taper PO DIRECTED #30 tab 02/02/25 [Rx] Follow up Appointment(s)/Referral(s): Anne Mayberry MD [Primary Care Provider] - 02/11/25 1:00 pm Deep Appiah MD [STAFF PHYSICIAN] - 1 Week (Office will call you with a hospital follow up apt. ) Patient Instructions/Handouts: Heart Attack (DC), A-fib (Atrial Fibrillation) (DC) Activity/Diet/Wound Care/Special Instructions: activity limited until follow up follow up with cardio Follow-up outpatient with primary care provider Follow-up oncology outpatient Continue taking medications as prescribed Discharge Disposition: HOME SELF-CARE
== END 2025-02-02 13:15 | disposition home or self-care (01) ==
LOC: EC 06:23 → 6NMEDSUR 08:51 → 3SCARD 01-30 18:33
PROVIDERS: ADMIT Hospitalist; ATTEND Hospitalist
DX: I48.91 Unspecified atrial fibrillation (principal); I25.10 Atherosclerotic heart disease of native coronary artery without angina pectoris; E87.1 Hypo-osmolality and hyponatremia; I10 Essential (primary) hypertension; E78.5 Hyperlipidemia, unspecified; C34.90 Malignant neoplasm of unspecified part of unspecified bronchus or lung; J44.9 Chronic obstructive pulmonary disease, unspecified; E44.1 Mild protein-calorie malnutrition; I65.29 Occlusion and stenosis of unspecified carotid artery; R60.0 Localized edema; M54.9 Dorsalgia, unspecified; M19.90 Unspecified osteoarthritis, unspecified site; R79.89 Other specified abnormal findings of blood chemistry; R00.0 Tachycardia, unspecified; D63.8 Anemia in other chronic diseases classified elsewhere; E66.9 Obesity, unspecified; Z68.36 Body mass index [BMI] 36.0-36.9, adult; Z79.82 Long term (current) use of aspirin; Z79.51 Long term (current) use of inhaled steroids; Z79.899 Other long term (current) drug therapy; Z88.5 Allergy status to narcotic agent; Z88.2 Allergy status to sulfonamides; Z88.8 Allergy status to other drugs, medicaments and biological substances; Z91.012 Allergy to eggs; Z95.5 Presence of coronary angioplasty implant and graft; Z92.21 Personal history of antineoplastic chemotherapy; Z92.3 Personal history of irradiation; Z87.891 Personal history of nicotine dependence
CPT/HCPCS: 96376 ×3; 96361; 96365; 96366; 96375; 99285; 36415; 94640 ×8; 93005; 93306; 85379; 83880; 80053 ×2; 80048 ×2; 85652; 83690; 83735; 84484; 85025 ×4; 85610; 85730; 86140; 81001; 87636; 71045; 71046; 71275; G0378 ×6; J2270; J0282; J7512; Q9967; J2470 ×4

== ENCOUNTER 2025-03-07 10:27 | Inpatient (IN) | payer MEDICARE ==
--- NOTE | 2025-03-07 10:43 | ED ---
SOB HPI - General Chief Complaint: Shortness of Breath Stated Complaint: JOSHUA Time Seen by Provider: 03/07/25 10:30 Source: patient, EMS Mode of arrival: EMS Limitations: no limitations - History of Present Illness Initial Comments: 79-year-old female past medical history of COPD on 3 L home O2 who presents emergency department with shortness of breath. Daughters at bedside helps provide history. States the patient has been more short of breath over the past couple of days. They have had to turn her oxygen up to 4 L. Her shortness of breath is worse with exertion. En route to the hospital she was given 125 Solu- Medrol, 1 Atrovent and 1 albuterol treatment. She has chronic lower extremity edema. Was recently hospitalized and diuresed. She does take Lasix daily. Denies any worsening swelling. No chest pain. Denies any fevers. No productive cough. Patient was on steroids for her COPD exacerbation. States she recently finished them and since she ran out of the steroids she has been more short of breath. No other alleviating, precipitating or modifying factors - Related Data Home Medications Medication Instructions Recorded Confirmed Sertraline [Zoloft] 100 mg PO DAILY 08/17/14 03/07/25 Fluticasone/Umeclidin/Vilanter 1 puff INHALATION RT-DAILY 08/24/24 03/07/25 [[place] Ellipta 100-62.5-25] Albuterol Sulfate [Ventolin HFA] 2 puff INHALATION RT-Q4H PRN 01/29/25 03/07/25 Aspirin EC [Ecotrin Low Dose] 81 mg PO DAILY 01/29/25 03/07/25 Meclizine [Antivert] 12.5 mg PO TID PRN 01/29/25 03/07/25 Metoclopramide [Reglan] 10 mg PO QID PRN 01/29/25 03/07/25 Omeprazole Magnesium [PriLOSEC OTC] 20 mg PO DAILY 01/29/25 03/07/25 Ondansetron [Zofran] 4 mg PO Q4H PRN 01/29/25 03/07/25 Amiodarone [Cordarone] 200 mg PO BID 03/07/25 03/07/25 Furosemide [Lasix] 40 mg PO DAILY 03/07/25 03/07/25 Linaclotide [Linzess] 145 mcg PO DAILY 03/07/25 03/07/25 Previous Rx's Medication Instructions Recorded Acetaminophen Tab [Tylenol] 650 mg PO Q6HR PRN tab 02/02/25 Apixaban [Eliquis] 5 mg PO BID #60 tab 02/02/25 Metoprolol Tartrate [Lopressor] 25 mg PO TID #90 tab 02/02/25 Allergies Allergy/AdvReac Type Severity Reaction Status Date / Time egg Allergy Unknown Verified 03/07/25 14:42 Sulfa (Sulfonamide Allergy Unknown Verified 03/07/25 14:42 Antibiotics) atorvastatin calcium AdvReac leg cramps Verified 03/07/25 14:42 [From Lipitor] codeine AdvReac lethargic Verified 03/07/25 14:42 Estrogens AdvReac anxiety/see Verified 03/07/25 14:42 comment Review of Systems ROS Statement: Those systems with pertinent positive or pertinent negative responses have been documented in the HPI. ROS Other: All systems not noted in ROS Statement are negative. Past Medical History Past Medical History: Cancer, COPD, GERD/Reflux, Hypertension, Osteoarthritis (OA), Pneumonia Additional Past Medical History / Comment(s): LEFT ANKLE EDEMA, SOB, CHRONIC COUGH, hx. right breast ca 2019; pt reports she went to [facility] on [address] about 3 weeks ago for fatigue, severe headache, & nausea- was diagnosed with mononucleosis- advised pt she needs to contact Dr. Salgado to notify him of this. Lung Cancer History of Any Multi-Drug Resistant Organisms: None Reported Past Surgical History: Breast Surgery, Cholecystectomy, Hysterectomy Additional Past Surgical History / Comment(s): LEFT BREAST BX BENIGN, right breast lumpectomy 2019 with radiation. Chemo/radiation completed 12/2024 Past Anesthesia/Blood Transfusion Reactions: Previous Problems w/ Anesthesia Additional Past Anesthesia/Blood Transfusion Reaction / Comment(s): pt states hard time waking up out of anesthesia Past Psychological History: Anxiety, Depression, Panic Disorder Smoking Status: Former smoker Past Alcohol Use History: None Reported Past Drug Use History: None Reported - Past Family History Mother Family Medical History: Coronary Artery Disease (CAD), Hypertension Additional Family Medical History / Comment(s): cabg (triple) when 76, brain tu mor Father Family Medical History: Prostate Disorder Additional Family Medical History / Comment(s): congenital heart fauilure; prostate ca General Exam Limitations: no limitations Course Vital Signs 03/07/25 03/07/25 03/07/25 10:29 10:38 12:09 Temperature 97.8 F Pulse Rate 77 79 Respiratory 24 24 18 Rate Blood Pressure 137/48 113/41 O2 Sat by Pulse 93 L 96 Oximetry 03/07/25 03/07/25 03/07/25 14:05 14:25 14:35 Temperature 98.2 F 98.1 F 98.4 F Pulse Rate 80 79 78 Respiratory 18 18 18 Rate Blood Pressure 105/47 108/38 108/38 O2 Sat by Pulse 97 Oximetry 03/07/25 14:55 Temperature 98.2 F Pulse Rate 77 Respiratory 20 Rate Blood Pressure 104/70 O2 Sat by Pulse Oximetry Medical Decision Making - Medical Decision Making Was pt. sent in by a medical professional or institution (Dr. PA, ROUGHING MILL OPERATOR, urgent care, hospital, or custodial...) When possible be specific @ -[No] Did you speak to anyone other than the patient for history (EMS, parent, family, police, friend...)? What history was obtained from this source @ -[No] Did you review nursing and triage notes (agree or disagree)? Why? @ -[I reviewed and agree with nursing and triage notes] Were old charts reviewed (outside hosp., previous admission, EMS record, old EKG, old radiological studies, urgent care reports/EKG's, custodial records)? Report findings @ -[No old charts were reviewed] Differential Diagnosis (chest pain, altered mental status, abdominal pain women, abdominal pain men, vaginal bleeding, weakness, fever, dyspnea, syncope, headache, dizziness, GI bleed, back pain, seizure, CVA, palpatations, mental health, musculoskeletal)? @ -[not applicable] EKG interpreted by me (3pts min.). @ -Yes and demonstrates sinus rhythm with a rate of 75. AL interval 155. QRS 98. QTc of 419. No acute ST segment elevations. Mild ST depression V3 through V6 X-rays interpreted by me (1pt min.). @ -[None done] CT interpreted by me (1pt min.). @ -[None done] U/S interpreted by me (1pt. min.). @ -[None done] What testing was considered but not performed or refused? (CT, X-rays, U/S, labs)? Why? @ -[None] What meds were considered but not given or refused? Why? @ -[None] Did you discuss the management of the patient with other professionals (professionals i.e. , PA, ROUGHING MILL OPERATOR, lab, RT, psych nurse, social and political studies professor, potato chip frier, teacher, compliance officer, caser in)? Give summary @ -[No] Was smoking cessation discussed for >3mins.? @ -[No] Was critical care preformed (if so, how long)? @ -[No] Were there social determinants of health that impacted care today? How? (Homelessness, low income, unemployed, alcoholism, drug addiction, trans portation, low edu. Level, literacy, decrease access to med. care, custodial, rehab)? @ -[No] Was there de-escalation of care discussed even if they declined (Discuss DNR or withdrawal of care, Hospice)? DNR status @ -[No] What co-morbidities impacted this encounter? (DM, HTN, Smoking, COPD, CAD, Cance r, CVA, ARF, Chemo, Hep., AIDS, mental health diagnosis, sleep apnea, morbid obesity)? @ -[None] Was patient admitted / discharged? Hospital course, mention meds given and route, prescriptions, significant lab abnormalities, going to OR and other pertinent info. @ -[hospital course] Undiagnosed new problem with uncertain prognosis? @ -[No] Drug Therapy requiring intensive monitoring for toxicity (Heparin, Nitro, Insulin, Cardizem)? @ -[No] Were any procedures done? @ -[No] Diagnosis/symptom? @ -[default] Acute, or Chronic, or Acute on Chronic? @ -[default] Uncomplicated (without systemic symptoms) or Complicated (systemic symptoms)? @ -[default] Side effects of treatment? @ -[No] Exacerbation, Progression, or Severe Exacerbation? @ -[No] Poses a threat to life or bodily function? How? (Chest pain, USA, GA, pneumonia, PE, COPD, DKA, ARF, appy, cholecystitis, CVA, Diverticulitis, Homicidal, Suicidal, threat to staff... and all critical care pts) @ -[No] - Lab Data Result diagrams: 03/07/25 10:47 03/07/25 10:47 Lab Results 03/07/25 03/07/25 03/07/25 Range/Units 10:47 10:47 10:47 WBC 7.91 (4.50-10.00) 10*3/uL RBC 2.08 L (4.10-5.20) 10*6/uL Hgb 6.0 L* (12.0-15.0) g/dL Hct 19.3 L* (37.2-46.3) % MCV 92.8 (80.0-97.0) fL MCH 28.8 (27.0-32.0) pg MCHC 31.1 L (32.0-37.0) g/dL Plt Count 151 (140-440) 10*3/uL MPV 10.3 (9.5-12.2) fL Immature Gran % (Auto) 0.9 % Neutrophils % 81.9 % Lymphocytes % 9.7 % Monocytes % 6.6 % Eosinophils % 0.4 % Basophils % 0.5 % Immature Gran # 0.07 H (0.00-0.04) 10*3/uL Neutrophils # 6.48 (1.80-7.70) 10*3/uL Lymphocytes # 0.77 L (0.90-5.00) 10*3/uL Monocytes # 0.52 (0.20-1.00) 10*3/uL Eosinophils # 0.03 L (0.04-0.35) 10*3/uL Basophils # 0.04 (0.00-0.10) 10*3/uL PT 11.7 (10.0-12.5) sec INR 1.1 (<1.2) APTT 24.4 (22.0-30.0) sec Sodium 137 (137-145) mmol/L Potassium 3.8 (3.5-5.1) mmol/L Chloride 98 (98-107) mmol/L Carbon Dioxide 33 H (22-30) mmol/L Anion Gap 6 mmol/L BUN 32 H (7-17) mg/dL Creatinine 1.09 H (0.52-1.04) mg/dL Est GFR (CKD-EPI)AfAm 55 (>60 ml/min/1.73 sqM) Est GFR (CKD-EPI)NonAf 48 (>60 ml/min/1.73 sqM) Glucose 159 H (74-99) mg/dL Plasma Lactic Acid Nikita (0.7-2.0) mmol/L Calcium 9.0 (8.4-10.2) mg/dL Total Bilirubin 0.4 (0.2-1.3) mg/dL AST 21 (14-36) U/L ALT 10 (4-34) U/L Alkaline Phosphatase 77 (38-126) U/L Troponin I (0.000-0.034) ng/mL NT-Pro-B Natriuret Pep 2340 pg/mL Total Protein 5.5 L (6.3-8.2) g/dL Albumin 3.2 L (3.5-5.0) g/dL Stool Occult Blood (Negative) Blood Type Blood Type Confirm Blood Type Recheck Bld Type Recheck Status Antibody Screen Crossmatch Spec Expiration Date 03/07/25 03/07/25 03/07/25 Range/Units 10:47 10:47 12:40 WBC (4.50-10.00) 10*3/uL RBC (4.10-5.20) 10*6/uL Hgb (12.0-15.0) g/dL Hct (37.2-46.3) % MCV (80.0-97.0) fL MCH (27.0-32.0) pg MCHC (32.0-37.0) g/dL Plt Count (140-440) 10*3/uL MPV (9.5-12.2) fL Immature Gran % (Auto) % Neutrophils % % Lymphocytes % % Monocytes % % Eosinophils % % Basophils % % Immature Gran # (0.00-0.04) 10*3/uL Neutrophils # (1.80-7.70) 10*3/uL Lymphocytes # (0.90-5.00) 10*3/uL Monocytes # (0.20-1.00) 10*3/uL Eosinophils # (0.04-0.35) 10*3/uL Basophils # (0.00-0.10) 10*3/uL PT (10.0-12.5) sec INR (<1.2) APTT (22.0-30.0) sec Sodium (137-145) mmol/L Potassium (3.5-5.1) mmol/L Chloride (98-107) mmol/L Carbon Dioxide (22-30) mmol/L Anion Gap mmol/L BUN (7-17) mg/dL Creatinine (0.52-1.04) mg/dL Est GFR (CKD-EPI)AfAm (>60 ml/min/1.73 sqM) Est GFR (CKD-EPI)NonAf (>60 ml/min/1.73 sqM) Glucose (74-99) mg/dL Plasma Lactic Acid Nikita 1.8 (0.7-2.0) mmol/L Calcium (8.4-10.2) mg/dL Total Bilirubin (0.2-1.3) mg/dL AST (14-36) U/L ALT (4-34) U/L Alkaline Phosphatase (38-126) U/L Troponin I <0.012 (0.000-0.034) ng/mL NT-Pro-B Natriuret Pep pg/mL Total Protein (6.3-8.2) g/dL Albumin (3.5-5.0) g/dL Stool Occult Blood (Negative) Blood Type Blood Type Confirm O Positive Blood Type Recheck Bld Type Recheck Status Antibody Screen Crossmatch Spec Expiration Date 03/07/25 03/07/25 Range/Units 12:47 12:48 WBC (4.50-10.00) 10*3/uL RBC (4.10-5.20) 10*6/uL Hgb (12.0-15.0) g/dL Hct (37.2-46.3) % MCV (80.0-97.0) fL MCH (27.0-32.0) pg MCHC (32.0-37.0) g/dL Plt Count (140-440) 10*3/uL MPV (9.5-12.2) fL Immature Gran % (Auto) % Neutrophils % % Lymphocytes % % Monocytes % % Eosinophils % % Basophils % % Immature Gran # (0.00-0.04) 10*3/uL Neutrophils # (1.80-7.70) 10*3/uL Lymphocytes # (0.90-5.00) 10*3/uL Monocytes # (0.20-1.00) 10*3/uL Eosinophils # (0.04-0.35) 10*3/uL Basophils # (0.00-0.10) 10*3/uL PT (10.0-12.5) sec INR (<1.2) APTT (22.0-30.0) sec Sodium (137-145) mmol/L Potassium (3.5-5.1) mmol/L Chloride (98-107) mmol/L Carbon Dioxide (22-30) mmol/L Anion Gap mmol/L BUN (7-17) mg/dL Creatinine (0.52-1.04) mg/dL Est GFR (CKD-EPI)AfAm (>60 ml/min/1.73 sqM) Est GFR (CKD-EPI)NonAf (>60 ml/min/1.73 sqM) Glucose (74-99) mg/dL Plasma Lactic Acid Nikita (0.7-2.0) mmol/L Calcium (8.4-10.2) mg/dL Total Bilirubin (0.2-1.3) mg/dL AST (14-36) U/L ALT (4-34) U/L Alkaline Phosphatase (38-126) U/L Troponin I (0.000-0.034) ng/mL NT-Pro-B Natriuret Pep pg/mL Total Protein (6.3-8.2) g/dL Albumin (3.5-5.0) g/dL Stool Occult Blood Positive H (Negative) Blood Type O Positive Blood Type Confirm Blood Type Recheck No Previous Record Bld Type Recheck Status CABO Indicated Antibody Screen NEGATIVE Crossmatch See Detail Spec Expiration Date 03/10/20252316 Disposition Clinical Impression: Acute respiratory insufficiency, Anemia, Occult blood positive stool, Mass of lower lobe of left lung Disposition: ADMITTED IP TO THIS [facility] Condition: Stable Is patient prescribed a controlled substance at d/c from ED?: No Time of Disposition: 14:15 Decision to Admit Reason: Admit from EC Decision Date: 03/07/25 Decision Time: 14:15
[2025-03-07 11:11] LABS: Basophils # (A) 0.04 10*3/uL (0.00-0.10); Basophils % (A) 0.5 %; Eosinophils # (A) 0.03 10*3/uL (0.04-0.35); Eosinophils % (A) 0.4 %; Lymphocytes # (A) 0.77 10*3/uL (0.90-5.00); Lymphocytes % (A) 9.7 %; MCH 28.8 pg (27.0-32.0); MCHC 31.1 g/dL (32.0-37.0); MCV 92.8 fL (80.0-97.0); Mean Platelet Volume 10.3 fL (9.5-12.2); Monocytes # (A) 0.52 10*3/uL (0.20-1.00); Monocytes % (A) 6.6 %; Neutrophils # (A) 6.48 10*3/uL (1.80-7.70); Neutrophils % (A) 81.9 %; Platelet Count 151 10*3/uL (140-440); RBC 2.08 10*6/uL (4.10-5.20); RDW 20.9 % (11.5-14.5); WBC 7.91 10*3/uL (4.50-10.00)
[2025-03-07 11:15] LABS: INR 1.1 (<1.2); Partial Thromboplastin Time 24.4 sec (22.0-30.0); Prothrombin Time 11.7 sec (10.0-12.5)
[2025-03-07 11:20] LABS: HCT 19.3 % (37.2-46.3)
[2025-03-07 11:21] LABS: ALT 10 U/L (4-34); AST 21 U/L (14-36); African American GFR (CKD) 55 (>60 ml/min/1.73 sqM); Albumin 3.2 g/dL (3.5-5.0); Alkaline Phosphatase 77 U/L (38-126); Anion Gap 6 mmol/L; Blood Urea Nitrogen 32 mg/dL (7-17); Carbon Dioxide 33 mmol/L (22-30); Chloride 98 mmol/L (98-107); Glucose 159 mg/dL (74-99); Non-African American GFR(CKD) 48 (>60 ml/min/1.73 sqM); Potassium 3.8 mmol/L (3.5-5.1); Sodium 137 mmol/L (137-145); Total Bilirubin 0.4 mg/dL (0.2-1.3); Total Protein 5.5 g/dL (6.3-8.2)
--- NOTE | 2025-03-07 11:23 | XR ---
EXAMINATION TYPE: XR chest 2V DATE OF EXAM: 03/07/2025 11:05 AM COMPARISON: Chest radiographs from 02/01/2025, CTA chest 01/30/2025 TECHNIQUE: XR chest 2V Frontal and lateral views of the chest. CLINICAL INDICATION:Female, 79 years old with history of difficulty breathing; FINDINGS: Lungs/Pleura: Hyperinflation with flattening of the hemidiaphragms. No pneumothorax. Trace bilateral pleural effusions with associated atelectasis. Pulmonary vascularity: Unremarkable. Heart/mediastinum: Cardiomediastinal silhouette is prominent in size. Atherosclerotic calcifications are seen in the aorta. Musculoskeletal: Multiple level degenerative disc disease changes seen throughout the spine. IMPRESSION: 1. Trace bilateral pleural effusions with associated atelectasis. 2. CABG changes. [facility], , 03/07/2025 11:21 AM
[2025-03-07 11:29] LABS: NT-Pro-B-Type Natriuretic Pept 2340 pg/mL
[2025-03-07] MEDS ORDERED: NALOXONE 0.4 MG/ML 1 ML VIAL IV PRN (14:15)
[2025-03-07] MEDS: PANTOPRAZOLE 40 MG/10 ML VIAL IV SCH (17:43)
[2025-03-07 19:21] LABS: MCH 28.3 pg (27.0-32.0); MCHC 31.2 g/dL (32.0-37.0); MCV 90.9 fL (80.0-97.0); Mean Platelet Volume 9.5 fL (9.5-12.2); Platelet Count 155 10*3/uL (140-440); RBC 2.86 10*6/uL (4.10-5.20); RDW 19.7 % (11.5-14.5); WBC 9.73 10*3/uL (4.50-10.00)
[2025-03-07 19:24] LABS: HGB 8.1 g/dL (12.0-15.0)
[2025-03-08 08:25] LABS: Basophils # (A) 0.01 10*3/uL (0.00-0.10); Basophils % (A) 0.1 %; HCT 20.3 % (37.2-46.3); Lymphocytes # (A) 0.49 10*3/uL (0.90-5.00); Lymphocytes % (A) 6.1 %; MCH 28.3 pg (27.0-32.0); Mean Platelet Volume 10.1 fL (9.5-12.2); Monocytes # (A) 0.36 10*3/uL (0.20-1.00); Monocytes % (A) 4.5 %; Neutrophils # (A) 7.08 10*3/uL (1.80-7.70); Neutrophils % (A) 88.5 %; Platelet Count 127 10*3/uL (140-440); RBC 2.23 10*6/uL (4.10-5.20); RDW 19.7 % (11.5-14.5)
[2025-03-08 08:45] LABS: African American GFR (CKD) 65 (>60 ml/min/1.73 sqM); Anion Gap 7 mmol/L; Blood Urea Nitrogen 34 mg/dL (7-17); Calcium 8.7 mg/dL (8.4-10.2); Carbon Dioxide 27 mmol/L (22-30); Chloride 102 mmol/L (98-107); Glucose 190 mg/dL (74-99); Non-African American GFR(CKD) 57 (>60 ml/min/1.73 sqM); Potassium 4.2 mmol/L (3.5-5.1); Sodium 136 mmol/L (137-145)
[2025-03-08 09:17] LABS: HGB 6.3 g/dL (12.0-15.0)
[2025-03-08] MEDS ORDERED: MELATONIN 3 MG TABLET PO PRN (09:30)
[2025-03-08] MEDS ORDERED: MAG HYDROX/AL HYDROX/SIMETH 30 ML CUP PO PRN (09:30)
[2025-03-08] MEDS ORDERED: ONDANSETRON 4 MG/2 ML VIAL IVP PRN (09:30)
[2025-03-08] MEDS ORDERED: ACETAMINOPHEN TAB 325 MG TAB PO PRN (09:31)
[2025-03-08] MEDS ORDERED: MECLIZINE 12.5 MG TAB PO PRN (09:31)
--- NOTE | 2025-03-08 09:46 | P.HPIM ---
History of Present Illness H&P Date: 03/08/25 History of present illness; patient is a 79-year-old lady with past medical history significant for atrial fibrillation on Eliquis, lung cancer per the ER because of shortness of breath. Patient states that for the last 2 weeks she has been noticing that she was getting short of breath on exertion. Patient stated that moving from her bed to the restroom will get her winded. Patient denied any chest pain. There was no complaint of palpitation. There was no complaint of orthopnea or PND. Patient has chronic swelling of lower extremities. Patient denied any nausea or vomiting. There was no complaint of hematemesis. Patient did notice that her stools were darker in color but she attributes it to taking iron. Because of worsening shortness of breath, patient came to the ER Initial lab work done in the ER showed WBC 7.91, hemoglobin 6, platelet count 151, sodium 137, potassium 3.8, BUN 32, creatinine 1.09, glucose 159, FOBT positive EKG done in the ER showed heart rate of 75 , no ST segment elevation or depression seen, no T-wave inversions seen. Chest x-ray done in the ER showed trace bilateral pleural effusion with associated atelectasis Patient admitted to internal medicine service REVIEW OF SYSTEMS: CONSTITUTIONAL: No fever, no malaise, no fatigue. HEENT: No recent visual problems or hearing problems. Denied any sore throat. CARDIOVASCULAR: As mentioned above PULMONARY: No shortness of breath, no cough, no hemoptysis. GASTROINTESTINAL: As mentioned above NEUROLOGICAL: No headaches, no weakness, no numbness. HEMATOLOGICAL: Denies any bleeding or petechiae. GENITOURINARY: Denies any burning micturition, frequency, or urgency. MUSCULOSKELETAL/RHEUMATOLOGICAL: Denies any joint pain, swelling, or any muscle pain. ENDOCRINE: Denies any polyuria or polydipsia. The rest of the 14-point review of systems is negative. PHYSICAL EXAMINATION: GENERAL: The patient is alert and oriented x3, not in any acute distress. Well developed, well nourished. HEENT: Pupils are round and equally reacting to light. EOMI. No scleral icterus. No conjunctival pallor. Normocephalic, atraumatic. No pharyngeal erythema. No thyromegaly. CARDIOVASCULAR: S1 and S2 present. No murmurs, rubs, or gallops. PULMONARY: Chest is clear to auscultation, no wheezing or crackles. ABDOMEN: Soft, nontender, nondistended, normoactive bowel sounds. No palpable organomegaly. MUSCULOSKELETAL: No joint swelling or deformity. EXTREMITIES: No cyanosis, clubbing, or pedal edema. NEUROLOGICAL: Gross neurological examination did not reveal any focal deficits. SKIN: No rashes. Assessment and plan GI bleed Acute blood loss anemia History of coronary artery disease with previous PCI of the RCA in 2013 Proximal atrial fibrillation Hypertension Dyslipidemia Carotid atherosclerosis COPD lung cancer status postchemotherapy and radiation therapy Monitor vital signs Monitor CBC Monitor CMP Continue telemetry monitoring Ordered anemia workup with iron profile, vitamin B12, folic acid Start Protonix 40 mg twice a day Hold aspirin, Eliquis Patient already received 1 unit of packed red blood cells, will order 1 more Resume home meds Consult surgery for evaluation, currently there is no GI coverage available in this hospital. Labs and medication were reviewed.. Continue same treatment. Continue with symptomatic treatment. Resume home medication. Monitor labs and vitals. DVT and GI prophylaxis. Further recommendations as per clinical course of the patient Dictation was produced using [employer] dictation software. please excuse any grammatical, word or spelling errors. Past Medical History Past Medical History: Cancer, COPD, GERD/Reflux, Hypertension, Osteoarthritis (OA), Pneumonia Additional Past Medical History / Comment(s): LEFT ANKLE EDEMA, SOB, CHRONIC COUGH, hx. right breast ca 2019; pt reports she went to [facility] on [address] about 3 weeks ago for fatigue, severe headache, & nausea- was diagnosed with mononucleosis- advised pt she needs to contact Dr. Salgado to notify him of this. Lung Cancer History of Any Multi-Drug Resistant Organisms: None Reported Past Surgical History: Breast Surgery, Cholecystectomy, Hysterectomy Additional Past Surgical History / Comment(s): LEFT BREAST BX BENIGN, right breast lumpectomy 2019 with radiation. Chemo/radiation completed 12/2024 Past Anesthesia/Blood Transfusion Reactions: Previous Problems w/ Anesthesia Additional Past Anesthesia/Blood Transfusion Reaction / Comment(s): pt states hard time waking up out of anesthesia Past Psychological History: Anxiety, Depression, Panic Disorder Smoking Status: Former smoker Past Alcohol Use History: None Reported Past Drug Use History: None Reported - Past Family History Mother Family Medical History: Coronary Artery Disease (CAD), Hypertension Additional Family Medical History / Comment(s): cabg (triple) when 76, brain tumor Father Family Medical History: Prostate Disorder Additional Family Medical History / Comment(s): congenital heart fauilure; prostate ca Medications and Allergies Home Medications Medication Instructions Recorded Confirmed Type Sertraline [Zoloft] 100 mg PO DAILY 08/17/14 03/07/25 History Fluticasone/Umeclidin/Vilanter 1 puff INHALATION RT-DAILY 08/24/24 03/07/25 History [Trelegy Ellipta 100-62.5-25] Albuterol Sulfate [Ventolin HFA] 2 puff INHALATION RT-Q4H PRN 01/29/25 03/07/25 History Aspirin EC [Ecotrin Low Dose] 81 mg PO DAILY 01/29/25 03/07/25 History Meclizine [Antivert] 12.5 mg PO TID PRN 01/29/25 03/07/25 History Metoclopramide [Reglan] 10 mg PO QID PRN 01/29/25 03/07/25 History Omeprazole Magnesium [PriLOSEC OTC] 20 mg PO DAILY 01/29/25 03/07/25 History Ondansetron [Zofran] 4 mg PO Q4H PRN 01/29/25 03/07/25 History Acetaminophen Tab [Tylenol] 650 mg PO Q6HR PRN tab 02/02/25 03/07/25 Rx Apixaban [Eliquis] 5 mg PO BID #60 tab 02/02/25 03/07/25 Rx Metoprolol Tartrate [Lopressor] 25 mg PO TID #90 tab 02/02/25 03/07/25 Rx Amiodarone [Cordarone] 200 mg PO BID 03/07/25 03/07/25 History Furosemide [Lasix] 40 mg PO DAILY 03/07/25 03/07/25 History Linaclotide [Linzess] 145 mcg PO DAILY 03/07/25 03/07/25 History Allergies Allergy/AdvReac Type Severity Reaction Status Date / Time egg Allergy Unknown Verified 03/07/25 14:42 Sulfa (Sulfonamide Allergy Unknown Verified 03/07/25 14:42 Antibiotics) atorvastatin calcium AdvReac leg cramps Verified 03/07/25 14:42 [From Lipitor] codeine AdvReac lethargic Verified 03/07/25 14:42 Estrogens AdvReac anxiety/see Verified 03/07/25 14:42 comment Physical Exam Vitals: Vital Signs Temp Pulse Resp BP Pulse Ox 03/08/25 07:51 100 03/08/25 05:23 68 18 135/48 100 03/08/25 00:09 82 20 114/90 99 03/07/25 21:44 78 18 114/50 96 03/07/25 18:51 98.1 F 85 18 118/51 97 03/07/25 17:02 98.1 F 77 18 118/51 03/07/25 15:19 98.1 F 92 24 115/47 03/07/25 14:55 98.2 F 77 20 104/70 03/07/25 14:35 98.4 F 78 18 108/38 03/07/25 14:25 98.1 F 79 18 108/38 03/07/25 14:05 98.2 F 80 18 105/47 97 03/07/25 12:09 79 18 113/41 96 03/07/25 10:38 24 03/07/25 10:29 97.8 F 77 24 137/48 93 L Intake and Output 03/07/25 03/08/25 03/08/25 22:59 06:59 14:59 Intake Total 310 Balance 310 Intake: Blood Product 310 Rc As-1 Unit 310 [id number] Results CBC & Chem 7: 03/08/25 07:39 03/08/25 07:39 Labs: Abnormal Lab Results - Last 24 Hours (Table) 03/07/25 03/07/25 03/07/25 Range/Units 10:47 10:47 12:47 RBC 2.08 L (4.10-5.20) 10*6/uL Hgb 6.0 L* (12.0-15.0) g/dL Hct 19.3 L* (37.2-46.3) % MCHC 31.1 L (32.0-37.0) g/dL Plt Count (140-440) 10*3/uL Immature Gran # 0.07 H (0.00-0.04) 10*3/uL Lymphocytes # 0.77 L (0.90-5.00) 10*3/uL Eosinophils # 0.03 L (0.04-0.35) 10*3/uL Sodium (137-145) mmol/L Carbon Dioxide 33 H (22-30) mmol/L BUN 32 H (7-17) mg/dL Creatinine 1.09 H (0.52-1.04) mg/dL Glucose 159 H (74-99) mg/dL Total Protein 5.5 L (6.3-8.2) g/dL Albumin 3.2 L (3.5-5.0) g/dL Stool Occult Blood (Negative) Crossmatch See Detail 03/07/25 03/07/25 03/08/25 Range/Units 12:48 18:45 07:39 RBC 2.86 L 2.23 L (4.10-5.20) 10*6/uL Hgb 8.1 L D 6.3 L* D (12.0-15.0) g/dL Hct 26.0 L 20.3 L (37.2-46.3) % MCHC 31.2 L 31.0 L (32.0-37.0) g/dL Plt Count 127 L (140-440) 10*3/uL Immature Gran # 0.06 H (0.00-0.04) 10*3/uL Lymphocytes # 0.49 L (0.90-5.00) 10*3/uL Eosinophils # 0.00 L (0.04-0.35) 10*3/uL Sodium (137-145) mmol/L Carbon Dioxide (22-30) mmol/L BUN (7-17) mg/dL Creatinine (0.52-1.04) mg/dL Glucose (74-99) mg/dL Total Protein (6.3-8.2) g/dL Albumin (3.5-5.0) g/dL Stool Occult Blood Positive H (Negative) Crossmatch 03/08/25 Range/Units 07:39 RBC (4.10-5.20) 10*6/uL Hgb (12.0-15.0) g/dL Hct (37.2-46.3) % MCHC (32.0-37.0) g/dL Plt Count (140-440) 10*3/uL Immature Gran # (0.00-0.04) 10*3/uL Lymphocytes # (0.90-5.00) 10*3/uL Eosinophils # (0.04-0.35) 10*3/uL Sodium 136 L (137-145) mmol/L Carbon Dioxide (22-30) mmol/L BUN 34 H (7-17) mg/dL Creatinine (0.52-1.04) mg/dL Glucose 190 H (74-99) mg/dL Total Protein (6.3-8.2) g/dL Albumin (3.5-5.0) g/dL Stool Occult Blood (Negative) Crossmatch
[2025-03-08 10:05] LABS: % Iron Saturation 6.17 (12.00-45.00)
[2025-03-08] MEDS: SYMBICORT 160-4.5 MCG INHALER INHALATION SCH (12:29)
--- NOTE | 2025-03-08 12:29 | P.GSCN ---
History of Present Illness Consult date: 03/08/25 History of present illness: CHIEF COMPLAINT: Shortness of breath HISTORY OF PRESENT ILLNESS: This is a 79-year-old female with a known history of lung cancer and is status post chemo and radiation treatment at the end of December. She did have a hemoglobin of 6 on admission with stool for occult blood positive. She did receive a unit of blood hemoglobin did go up to 8.0. Hemoglobin has dropped again today to 6.3 and she is receiving another unit of blood today. She is on Eliquis at home her last dose was on March 06. She denies any abdominal pain. She does complain of bilateral lower rib pain. Denies any nausea or vomiting. She reports that she has been having black stools for some time but blamed it on the iron. She does have shortness of breath with ambulating. She has a history of COPD and is on 3 L at home. Surgical service consult in regards to patient's anemia. She reports having an EGD several years ago with dilation. Last colonoscopy was about 3 years ago with polyps and diverticulosis per patient. PAST MEDICAL HISTORY: Lung cancer, COPD, GERD/Reflux, Hypertension, Osteoarthritis (OA), Pneumonia, PAST SURGICAL HISTORY: Breast Surgery, Cholecystectomy, Hysterectomy MEDICATIONS: See below ALLERGIES: See below SOCIAL HISTORY: No illicit drug use. REVIEW OF SYSTEMS: CONSTITUTIONAL: Denies fever or chills. HEENT: Denies blurred vision, vision changes, or eye pain. Denies hemoptysis CARDIOVASCULAR: Denies chest pain or pressure. RESPIRATORY: No shortness of breath. GASTROINTESTINAL: See HPI for pertinent findings HEMATOLOGIC: Denies bleeding disorders. GENITOURINARY: Denies any blood in urine or increased urinary frequency. SKIN: Denies pruitis. Denies rash. PHYSICAL EXAM: VITAL SIGNS: Reviewed GENERAL: Well-developed in no acute distress. HEENT: No sclera icterus. Extraocular movements grossly intact. Moist buccal mucosa. Head is atraumatic, normocephalic. No nasal drainage. ABDOMEN: Soft. Nondistended. Nontender NEUROLOGIC: Alert and oriented. Cranial nerves II through XII grossly intact. LABORATORY DATA: WBC 8.0 Hgb 6.3 platelets 127 Sodium 136 potassium 4.2 creatinine 0.95 Stool for occult blood positive IMAGING: ASSESSMENT: 1. Symptomatic anemia with melanotic stools. Patient on Eliquis at home. Patient also takes oral iron 2. History of lung cancer status post chemo and radiation treatment in December 2024 PLAN: - Patient scheduled for EGD tomorrow with Dr. Louis - Transfuse 1 unit of blood for hemoglobin of 6.3 - Continue to monitor hemoglobin - Continue to monitor for any signs or symptoms of bleeding - Continue PPI BID - hold Frances Phys[employer] note has been reviewed by physician. Signing provider agrees with the documented findings, assessment, and plan of care. Past Medical History Past Medical History: Cancer, COPD, GERD/Reflux, Hypertension, Osteoarthritis (OA), Pneumonia Additional Past Medical History / Comment(s): LEFT ANKLE EDEMA, SOB, CHRONIC COUGH, hx. right breast ca 2019; pt reports she went to [facility] on [address] about 3 weeks ago for fatigue, severe headache, & nausea- was diagnosed with mononucleosis- advised pt she needs to contact Dr. Salgado to notify him of this. Lung Cancer History of Any Multi-Drug Resistant Organisms: None Reported Past Surgical History: Breast Surgery, Cholecystectomy, Hysterectomy Additional Past Surgical History / Comment(s): LEFT BREAST BX BENIGN, right breast lumpectomy 2019 with radiation. Chemo/radiation completed 12/2024 Past Anesthesia/Blood Transfusion Reactions: Previous Problems w/ Anesthesia Additional Past Anesthesia/Blood Transfusion Reaction / Comm: pt states hard time waking up out of anesthesia Past Psychological History: Anxiety, Depression, Panic Disorder Smoking Status: Former smoker Past Alcohol Use History: None Reported Past Drug Use History: None Reported - Past Family History Mother Family Medical History: Coronary Artery Disease (CAD), Hypertension Additional Family Medical History / Comment(s): cabg (triple) when 76, brain tumor Father Family Medical History: Prostate Disorder Additional Family Medical History / Comment(s): congenital heart fauilure; prostate ca Medications and Allergies Home Medications Medication Instructions Recorded Confirmed Type Sertraline [Zoloft] 100 mg PO DAILY 08/17/14 03/07/25 History Fluticasone/Umeclidin/Vilanter 1 puff INHALATION RT-DAILY 08/24/24 03/07/25 History [Trelegy Ellipta 100-62.5-25] Albuterol Sulfate [Ventolin HFA] 2 puff INHALATION RT-Q4H PRN 01/29/25 03/07/25 History Aspirin EC [Ecotrin Low Dose] 81 mg PO DAILY 01/29/25 03/07/25 History Meclizine [Antivert] 12.5 mg PO TID PRN 01/29/25 03/07/25 History Metoclopramide [Reglan] 10 mg PO QID PRN 01/29/25 03/07/25 History Omeprazole Magnesium [PriLOSEC OTC] 20 mg PO DAILY 01/29/25 03/07/25 History Ondansetron [Zofran] 4 mg PO Q4H PRN 01/29/25 03/07/25 History Acetaminophen Tab [Tylenol] 650 mg PO Q6HR PRN tab 02/02/25 03/07/25 Rx Apixaban [Eliquis] 5 mg PO BID #60 tab 02/02/25 03/07/25 Rx Metoprolol Tartrate [Lopressor] 25 mg PO TID #90 tab 02/02/25 03/07/25 Rx Amiodarone [Cordarone] 200 mg PO BID 03/07/25 03/07/25 History Furosemide [Lasix] 40 mg PO DAILY 03/07/25 03/07/25 History Linaclotide [Linzess] 145 mcg PO DAILY 03/07/25 03/07/25 History Allergies Allergy/AdvReac Type Severity Reaction Status Date / Time egg Allergy Unknown Verified 03/07/25 14:42 Sulfa (Sulfonamide Allergy Unknown Verified 03/07/25 14:42 Antibiotics) atorvastatin calcium AdvReac leg cramps Verified 03/07/25 14:42 [From Lipitor] codeine AdvReac lethargic Verified 03/07/25 14:42 Estrogens AdvReac anxiety/see Verified 03/07/25 14:42 comment Surgical - Exam Vital Signs Temp Pulse Resp BP Pulse Ox 97.8 F 77 24 137/48 93 L 03/07/25 10:29 03/07/25 10:29 03/07/25 10:29 03/07/25 10:29 03/07/25 10:29 Results - Labs 03/08/25 07:39 03/08/25 07:39 Abnormal Lab Results - Last 24 Hours (Table) 03/07/25 03/07/25 03/07/25 Range/Units 10:47 12:47 12:48 RBC (4.10-5.20) 10*6/uL Hgb (12.0-15.0) g/dL Hct (37.2-46.3) % MCHC (32.0-37.0) g/dL Plt Count (140-440) 10*3/uL Immature Gran # (0.00-0.04) 10*3/uL Lymphocytes # (0.90-5.00) 10*3/uL Eosinophils # (0.04-0.35) 10*3/uL Sodium (137-145) mmol/L BUN (7-17) mg/dL Glucose (74-99) mg/dL Iron 25 L (50-170) UG/DL % Saturation 6.17 L (12.00-45.00) Stool Occult Blood Positive H (Negative) Crossmatch See Detail 03/07/25 03/08/25 03/08/25 Range/Units 18:45 07:39 07:39 RBC 2.86 L 2.23 L (4.10-5.20) 10*6/uL Hgb 8.1 L D 6.3 L* D (12.0-15.0) g/dL Hct 26.0 L 20.3 L (37.2-46.3) % MCHC 31.2 L 31.0 L (32.0-37.0) g/dL Plt Count 127 L (140-440) 10*3/uL Immature Gran # 0.06 H (0.00-0.04) 10*3/uL Lymphocytes # 0.49 L (0.90-5.00) 10*3/uL Eosinophils # 0.00 L (0.04-0.35) 10*3/uL Sodium 136 L (137-145) mmol/L BUN 34 H (7-17) mg/dL Glucose 190 H (74-99) mg/dL Iron (50-170) UG/DL % Saturation (12.00-45.00) Stool Occult Blood (Negative) Crossmatch Diabetes panel 03/08/25 Range/Units 07:39 Sodium 136 L (137-145) mmol/L Potassium 4.2 (3.5-5.1) mmol/L Chloride 102 (98-107) mmol/L Carbon Dioxide 27 (22-30) mmol/L BUN 34 H (7-17) mg/dL Creatinine 0.95 (0.52-1.04) mg/dL Glucose 190 H (74-99) mg/dL Calcium 8.7 (8.4-10.2) mg/dL Calcium panel 03/08/25 Range/Units 07:39 Calcium 8.7 (8.4-10.2) mg/dL Pituitary panel 03/08/25 Range/Units 07:39 Sodium 136 L (137-145) mmol/L Potassium 4.2 (3.5-5.1) mmol/L Chloride 102 (98-107) mmol/L Carbon Dioxide 27 (22-30) mmol/L BUN 34 H (7-17) mg/dL Creatinine 0.95 (0.52-1.04) mg/dL Glucose 190 H (74-99) mg/dL Calcium 8.7 (8.4-10.2) mg/dL Adrenal panel 03/08/25 Range/Units 07:39 Sodium 136 L (137-145) mmol/L Potassium 4.2 (3.5-5.1) mmol/L Chloride 102 (98-107) mmol/L Carbon Dioxide 27 (22-30) mmol/L BUN 34 H (7-17) mg/dL Creatinine 0.95 (0.52-1.04) mg/dL Glucose 190 H (74-99) mg/dL Calcium 8.7 (8.4-10.2) mg/dL
[2025-03-08] MEDS: TIOTROPIUM 2.5 MCG INHALER INHALATION SCH (12:30)
[2025-03-08] MEDS: FUROSEMIDE 40 MG TAB PO SCH (12:42)
[2025-03-08] MEDS: METOPROLOL TARTRATE 25 MG TAB PO SCH (18:33)
[2025-03-08] MEDS: MAGNESIUM OXIDE 400 MG TAB PO STA (20:43)
[2025-03-08] MEDS: AMIODARONE 200 MG TAB PO SCH (20:43)
[2025-03-08] MEDS: PANTOPRAZOLE 40 MG/10 ML VIAL IV SCH (20:43)
[2025-03-09 07:38] LABS: HCT 25.3 % (37.2-46.3); HGB 7.7 g/dL (12.0-15.0); MCH 27.5 pg (27.0-32.0); MCHC 30.4 g/dL (32.0-37.0); MCV 90.4 fL (80.0-97.0); Mean Platelet Volume 9.6 fL (9.5-12.2); Platelet Count 119 10*3/uL (140-440); RDW 20.3 % (11.5-14.5); WBC 8.51 10*3/uL (4.50-10.00)
[2025-03-09] MEDS ORDERED: NON FORMULARY DRUG (Fluticasone/Umeclidin/Vilanter [Trelegy Ellipta 100-62.5-25] 1 EACH Bl INHALATION SCH (08:00)
[2025-03-09 08:02] LABS: African American GFR (CKD) 58 (>60 ml/min/1.73 sqM); Anion Gap 7 mmol/L; Blood Urea Nitrogen 33 mg/dL (7-17); Calcium 8.9 mg/dL (8.4-10.2); Carbon Dioxide 30 mmol/L (22-30); Chloride 102 mmol/L (98-107); Glucose 105 mg/dL (74-99); Magnesium 2.1 mg/dL (1.6-2.3); Non-African American GFR(CKD) 50 (>60 ml/min/1.73 sqM); Sodium 139 mmol/L (137-145)
[2025-03-09] MEDS: PATIENT'S OWN (Linaclotide [Linzess] 145 MCG Capsule) PO SCH (08:43)
[2025-03-09] MEDS: SERTRALINE 100 MG TAB PO SCH (08:44)
[2025-03-09] MEDS ORDERED: PROPOFOL 10 MG/ML 20 ML VIAL IV ONE (12:19)
[2025-03-09] MEDS: LACTATED RINGERS 1,000 ML IV ONE (12:21)
--- NOTE | 2025-03-09 12:34 | P.OP ---
Date of Procedure: 03/09/25 Preoperative Diagnosis: Anemia Postoperative Diagnosis: Antral gastritis Small hiatal hernia Esophagitis Procedure(s) Performed: EGD Anesthesia: MAC Surgeon: Ben Louis Pathology: other (Antrum, esophagus) Condition: stable Disposition: PACU Description of Procedure: The patient was placed on the endoscopy table in the lateral position. She received IV sedation. The gas was placed oropharynx passed in the esophagus and stomach. Scope was placed through the pylorus. The 1st and 2nd portion of the duodenum appeared normal. The scope was then brought back to the antrum was mildly Flaim. A biopsy was performed. The scope was then retroflexed and the remainder of the stomach appeared normal. There was a hiatal hernia visualized. The GE junction was at 38 cm. The distal esophagus appeared inflamed. This was biopsied. The proximal esophagus appeared normal. There was no evidence of acute GI bleed. Presumed patient may have anemia due to esophagitis or gastritis.
--- NOTE | 2025-03-09 12:59 | P.PN ---
Subjective Progress Note Date: 03/09/25 patient is a 79-year-old lady with past medical history significant for atrial fibrillation on Eliquis, lung cancer per the ER because of shortness of breath. Patient states that for the last 2 weeks she has been noticing that she was getting short of breath on exertion. Patient stated that moving from her bed to the restroom will get her winded. Patient denied any chest pain. There was no complaint of palpitation. There was no complaint of orthopnea or PND. Patient has chronic swelling of lower extremities. Patient denied any nausea or vomiting. There was no complaint of hematemesis. Patient did notice that her stools were darker in color but she attributes it to taking iron. Because of worsening shortness of breath, patient came to the ER Initial lab work done in the ER showed WBC 7.91, hemoglobin 6, platelet count 151, sodium 137, potassium 3.8, BUN 32, creatinine 1.09, glucose 159, FOBT positive EKG done in the ER showed heart rate of 75 , no ST segment elevation or depression seen, no T-wave inversions seen. Chest x-ray done in the ER showed trace bilateral pleural effusion with associated atelectasis Patient admitted to internal medicine service 03/09. Patient seen and examined. Blood work done this morning showed WBC 8.51, hemoglobin 10.7, patient has received 2 units of packed red blood cells so far. N.p.o. going for EGD today REVIEW OF SYSTEMS: CONSTITUTIONAL: No fever, no malaise,. CARDIOVASCULAR: No chest pain, no palpitations, no syncope. PULMONARY: No shortness of breath, no cough, GASTROINTESTINAL: No diarrhea, no nausea, no vomiting, no abdominal pain. NEUROLOGICAL: No headaches, no weakness, PHYSICAL EXAMINATION: GENERAL: The patient is alert and oriented x3, not in any acute distress. Well developed, well nourished. HEENT: Pupils are round and equally reacting to light. EOMI. No scleral icterus. No conjunctival pallor. Normocephalic, atraumatic. No pharyngeal erythema. No thyromegaly. CARDIOVASCULAR: S1 and S2 present. No murmurs, rubs, or gallops. PULMONARY: Chest is clear to auscultation, no wheezing or crackles. ABDOMEN: Soft, nontender, nondistended, normoactive bowel sounds. No palpable organomegaly. MUSCULOSKELETAL: No joint swelling or deformity. EXTREMITIES: No cyanosis, clubbing, or pedal edema. NEUROLOGICAL: Gross neurological examination did not reveal any focal deficits. SKIN: No rashes. Assessment and plan GI bleed Acute blood loss anemia History of coronary artery disease with previous PCI of the RCA in 2013 Proximal atrial fibrillation Hypertension Dyslipidemia Carotid atherosclerosis COPD lung cancer status postchemotherapy and radiation therapy Monitor vital signs Monitor CBC Monitor CMP Continue telemetry monitoring Continue Protonix 40 mg twice a day Hold aspirin, Eliquis Post 2 units of packed red blood so far. General surgery following, planning EGD today Labs and medication were reviewed.. Continue same treatment. Continue with symptomatic treatment. Resume home medication. Monitor labs and vitals. DVT and GI prophylaxis. Further recommendations as per clinical course of the patient Dictation was produced using [employer] dictation software. please excuse any grammatical, word or spelling errors. Objective - Vital Signs Vital signs: Vital Signs Temp 97.4 F L 03/09/25 08:00 Pulse 63 03/09/25 08:00 Resp 16 03/09/25 08:00 BP 108/63 03/09/25 08:00 Pulse Ox 98 03/09/25 01:11 FiO2 Intake & Output 03/08/25 03/09/25 03/09/25 18:59 06:59 18:59 Intake Total 310 Balance 310 Intake: Blood Product 310 Rc As-1 Unit 310 [id number] Other: # Voids 3 4 # Bowel Movements 1 - Labs CBC & Chem 7: 03/09/25 07:08 03/09/25 07:08 Labs: Abnormal Lab Results - Last 24 Hours (Table) 03/07/25 03/07/25 03/09/25 Range/Units 10:47 12:47 07:08 RBC 2.80 L (4.10-5.20) 10*6/uL Hgb 7.7 L (12.0-15.0) g/dL Hct 25.3 L (37.2-46.3) % MCHC 30.4 L (32.0-37.0) g/dL Plt Count 119 L (140-440) 10*3/uL BUN (7-17) mg/dL Creatinine (0.52-1.04) mg/dL Glucose (74-99) mg/dL Iron 25 L (50-170) UG/DL % Saturation 6.17 L (12.00-45.00) Crossmatch See Detail 03/09/25 Range/Units 07:08 RBC (4.10-5.20) 10*6/uL Hgb (12.0-15.0) g/dL Hct (37.2-46.3) % MCHC (32.0-37.0) g/dL Plt Count (140-440) 10*3/uL BUN 33 H (7-17) mg/dL Creatinine 1.05 H (0.52-1.04) mg/dL Glucose 105 H (74-99) mg/dL Iron (50-170) UG/DL % Saturation (12.00-45.00) Crossmatch
--- NOTE | 2025-03-09 15:12 | P.PN ---
Subjective Progress Note Date: 03/09/25 SURGICAL PROGRESS NOTE CHIEF COMPLAINT: Shortness of breath HISTORY OF PRESENT ILLNESS: Surgical service following regards to anemia. Patient reports that she did have black stools yesterday. Hemoglobin did go up from 6.3-7.7 after 1 unit of blood. She is scheduled for EGD today. Denies any abdominal pain. PHYSICAL EXAM: VITAL SIGNS: Reviewed. GENERAL: Well-developed in no acute distress. ABDOMEN: Soft. Nondistended. Nontender. NEUROLOGIC: Alert and oriented. Cranial nerves II through XII grossly intact. ASSESSMENT: 1. Symptomatic anemia with melanotic stools. Patient on Eliquis at home. Patient also takes oral iron 2. History of lung cancer status post chemo and radiation treatment in December 2024 PLAN: - Scheduled for EGD today with Dr. Louis Physician Coffee Sampler note has been reviewed by physician. Signing provider agrees with the documented findings, assessment, and plan of care. Objective - Vital Signs Vital signs: Vital Signs Temp 97.4 F L 03/09/25 08:00 Pulse 63 03/09/25 08:00 Resp 16 03/09/25 08:00 BP 108/63 03/09/25 08:00 Pulse Ox 98 03/09/25 01:11 FiO2 Intake & Output 03/08/25 03/09/25 03/09/25 18:59 06:59 18:59 Intake Total 310 200 Balance 310 200 Intake: IV 200 Blood Product 310 Rc As-1 Unit 310 [id number] Other: # Voids 3 4 # Bowel Movements 1 - Labs CBC & Chem 7: 03/09/25 07:08 03/09/25 07:08 Labs: Abnormal Lab Results - Last 24 Hours (Table) 03/07/25 03/08/25 03/09/25 Range/Units 12:47 07:39 07:08 RBC 2.80 L (4.10-5.20) 10*6/uL Hgb 7.7 L (12.0-15.0) g/dL Hct 25.3 L (37.2-46.3) % MCHC 30.4 L (32.0-37.0) g/dL Plt Count 119 L (140-440) 10*3/uL BUN (7-17) mg/dL Creatinine (0.52-1.04) mg/dL Glucose (74-99) mg/dL RBC Folate 1,113 H (280 - 791) ng/mL Crossmatch See Detail 03/09/25 Range/Units 07:08 RBC (4.10-5.20) 10*6/uL Hgb (12.0-15.0) g/dL Hct (37.2-46.3) % MCHC (32.0-37.0) g/dL Plt Count (140-440) 10*3/uL BUN 33 H (7-17) mg/dL Creatinine 1.05 H (0.52-1.04) mg/dL Glucose 105 H (74-99) mg/dL RBC Folate (280 - 791) ng/mL Crossmatch
[2025-03-09] MEDS: ALBUTEROL NEBULIZED 2.5 MG/3 ML INHALATION PRN (19:19)
[2025-03-09] MEDS: MAGNESIUM OXIDE 400 MG TAB PO ONE (21:18)
[2025-03-10 07:26] LABS: HCT 26.4 % (37.2-46.3); HGB 7.9 g/dL (12.0-15.0); MCH 27.1 pg (27.0-32.0); MCHC 29.9 g/dL (32.0-37.0); MCV 90.7 fL (80.0-97.0); Mean Platelet Volume 9.5 fL (9.5-12.2); Platelet Count 119 10*3/uL (140-440); RBC 2.91 10*6/uL (4.10-5.20); RDW 19.4 % (11.5-14.5); WBC 7.08 10*3/uL (4.50-10.00)
[2025-03-10 07:39] LABS: ALT 11 U/L (4-34); AST 23 U/L (14-36); African American GFR (CKD) 53 (>60 ml/min/1.73 sqM); Albumin 2.9 g/dL (3.5-5.0); Alkaline Phosphatase 71 U/L (38-126); Anion Gap 4 mmol/L; Blood Urea Nitrogen 26 mg/dL (7-17); Carbon Dioxide 32 mmol/L (22-30); Chloride 101 mmol/L (98-107); Glucose 101 mg/dL (74-99); Non-African American GFR(CKD) 46 (>60 ml/min/1.73 sqM); Sodium 137 mmol/L (137-145); Total Bilirubin 0.5 mg/dL (0.2-1.3)
--- NOTE | 2025-03-10 12:20 | P.CRDCN ---
History of Present Illness Consult date: 03/10/25 Reason for Consult (text): Hypotension, Eliquis management. History of present illness: This is an 79-year-old female patient of Dr. Appiah with past medical history of coronary artery disease status post PCI of the RCA, hypertension, dyslipidemia, carotid atherosclerosis, lower extremity edema, paroxysmal atrial fibrillation, COPD, chronic hypoxic respiratory failure on home O2 at 3 L nasal cannula lung cancer, remote history of tobacco use and dependence. We have been asked to evaluate the patient for hypotension and Eliquis management. Patient had a recent hospitalization in January of this year was seen by cardiology for chest discomfort new onset of A-fib with RVR, elevated D-dimer. Patient was discharged home on amiodarone and Eliquis and metoprolol. She had a follow-up office visit with Dr. Appiah on 02/10 at which time she was continued on amiodarone 200 mg twice daily, continued Eliquis, continue metoprolol tartrate 25 mg 3 times daily. Patient presented to the hospital on 03/07 with complaints of increasing shortness of breath worsening over the past couple of days despite increasing her oxygen. She had worsening dyspnea with exertion. She was found to have a hemoglobin of 6 and was transfused 2 units of packed RBCs. She underwent an EGD which revealed antral gastritis, small hiatal hernia, esophagitis. Eliquis has been on hold since admission. Patient denies having any bloody or tarry stools. She states that she just had dyspnea on exertion that had been worsening. She denies lightheadedness or dizziness. She states that she has felt better after the transfusion. She states she is scheduled for colonoscopy tomorrow. Regarding lung cancer, patient states that she has completed chemotherapy and radiation therapy. Blood pressure 96/45, heart rate 76, pulse ox 97% on 3 L nasal cannula. -EKG: Sinus rhythm -Chest x-ray: Bilateral pleural effusions with associated atelectasis. -Laboratory studies: WBC 7, hemoglobin 7.9, BUN 26, creatinine 1.13. Patient presented with hemoglobin of 6.0. She is status post transfusion of 2 units packed RBCs. -Home cardiac medications: Amiodarone 200 mg twice daily, Eliquis 5 mg twice daily, Lasix 40 mg daily, metoprolol tartrate 25 mg 3 times daily. -Cardiac catheterization performed in 2013 with 80% proximal RCA status post stent. -Echocardiogram performed at [facility] on 01/29/2025 revealed normal LV size and function. -Lexiscan stress test performed 10/18/2022 revealed normal EF, small distal anterior ischemia. Review Of Systems: At the time of my exam: CONSTITUTIONAL: Denies fever or chills. HEENT: Denies blurred vision, vision changes, or eye pain. Denies hemoptysis CARDIOVASCULAR: Reports chest pain. Denies orthopnea. Denies PND. Denies palpitations RESPIRATORY: Denies shortness of breath. Reports dyspnea on exertion. GASTROINTESTINAL: Denies abdominal pain. Denies nausea or vomiting. HEMATOLOGIC: Denies bleeding disorders. GENITOURINARY: Denies any blood in urine. SKIN: Denies puritis. Denies rash. Physical examination: Gen: This is a 79-year-old female in no acute distress VS: reviewed HEENT: Head is atraumatic, normocephalic. Pupils equal, round. Sclerae is anicteric. NECK: Supple. No JVD. LUNGS: Clear to auscultation. No wheezes or rhonchi. No intercostal retractions. HEART: Regular rate and rhythm. Systolic murmur. ABDOMEN: Soft No tenderness. EXTREMITIES: No pedal edema. No calf tenderness. NEUROLOGICAL: Patient is awake, alert and oriented x3. Assessment: Acute GI bleed Acute blood loss anemia with transfusion of 2 units of packed RBCs Paroxysmal atrial fibrillation, currently in sinus rhythm, Eliquis has been on hold since admission History of coronary artery disease with previous PCI of the RCA in 2013 Hypertension Dyslipidemia Carotid atherosclerosis COPD Lung cancer status postchemotherapy and radiation therapy Chronic hypoxic respiratory failure on home O2 at 3 L nasal cannula Plan: Continue patient's home cardiac medications Continue to hold Eliquis and do not resume at discharge No plan for no further cardiac workup At the time of discharge, patient will follow-up in the office with Dr. Appiah in 1 to 2 weeks. Patient will follow-up with Dr. Appiah and discuss option of Watchman procedure. Thank you kindly for this consultation. Nurse practitioner note has been reviewed, I agree with documented findings and plan of care. Patient was seen and examined. Past Medical History Past Medical History: Cancer, COPD, GERD/Reflux, Hypertension, Osteoarthritis (OA), Pneumonia Additional Past Medical History / Comment(s): LEFT ANKLE EDEMA, SOB, CHRONIC COUGH, hx. right breast ca 2019; Lung Cancer last chemo/radiation in Dec 2024 History of Any Multi-Drug Resistant Organisms: None Reported Past Surgical History: Breast Surgery, Cholecystectomy, Hysterectomy Additional Past Surgical History / Comment(s): LEFT BREAST BX BENIGN, right erinn st lumpectomy 2019 with radiation. Lung Ca Chemo/radiation 12/2024 Past Anesthesia/Blood Transfusion Reactions: Previous Problems w/ Anesthesia Additional Past Anesthesia/Blood Transfusion Reaction / Comment(s): pt states hard time waking up out of anesthesia Smoking Status: Never smoker - Past Family History Mother Family Medical History: Coronary Artery Disease (CAD), Hypertension Additional Family Medical History / Comment(s): cabg (triple) when 76, brain tumor Father Family Medical History: Prostate Disorder Additional Family Medical History / Comment(s): congenital heart fauilure; prostate ca Medications and Allergies Home Medications Medication Instructions Recorded Confirmed Type Sertraline [Zoloft] 100 mg PO DAILY 08/17/14 03/07/25 History Fluticasone/Umeclidin/Vilanter 1 puff INHALATION RT-DAILY 08/24/24 03/07/25 H istory [Trelegy Ellipta 100-62.5-25] Albuterol Sulfate [Ventolin HFA] 2 puff INHALATION RT-Q4H PRN 01/29/25 03/07/25 History Aspirin EC [Ecotrin Low Dose] 81 mg PO DAILY 01/29/25 03/07/25 History Meclizine [Antivert] 12.5 mg PO TID PRN 01/29/25 03/07/25 History Metoclopramide [Reglan] 10 mg PO QID PRN 01/29/25 03/07/25 History Omeprazole Magnesium [PriLOSEC OTC] 20 mg PO DAILY 01/29/25 03/07/25 History Ondansetron [Zofran] 4 mg PO Q4H PRN 01/29/25 03/07/25 History Acetaminophen Tab [Tylenol] 650 mg PO Q6HR PRN tab 02/02/25 03/07/25 Rx Metoprolol Tartrate [Lopressor] 25 mg PO TID #90 tab 02/02/25 03/07/25 Rx Amiodarone [Cordarone] 200 mg PO BID 03/07/25 03/07/25 History Furosemide [Lasix] 40 mg PO DAILY 03/07/25 03/07/25 History Linaclotide [Linzess] 145 mcg PO DAILY 03/07/25 03/07/25 History Allergies Allergy/AdvReac Type Severity Reaction Status Date / Time egg Allergy Unknown Verified 03/07/25 14:42 Sulfa (Sulfonamide Allergy Unknown Verified 03/07/25 14:42 Antibiotics) atorvastatin calcium AdvReac leg cramps Verified 03/07/25 14:42 [From Lipitor] codeine AdvReac lethargic Verified 03/07/25 14:42 Estrogens AdvReac anxiety/see Verified 03/07/25 14:42 comment Physical Exam Vitals: Vital Signs Temp Pulse Resp BP Pulse Ox 03/10/25 08:00 97.8 F 76 17 96/45 97 03/10/25 00:14 98.5 F 65 16 112/67 99 03/09/25 19:27 98.3 F 75 18 103/48 99 03/09/25 15:36 97.7 F 79 18 144/69 97 Intake and Output 03/09/25 03/10/25 03/10/25 22:59 06:59 14:59 Other: # Voids 6 2 # Bowel Movements 2 Weight 86.183 kg Results 03/10/25 06:06 03/10/25 06:06 Cardiac Enzymes 03/10/25 Range/Units 06:06 AST 23 (14-36) U/L CBC 03/10/25 Range/Units 06:06 WBC 7.08 (4.50-10.00) 10*3/uL RBC 2.91 L (4.10-5.20) 10*6/uL Hgb 7.9 L (12.0-15.0) g/dL Hct 26.4 L (37.2-46.3) % Plt Count 119 L (140-440) 10*3/uL Comprehensive Metabolic Panel 03/10/25 Range/Units 06:06 Sodium 137 (137-145) mmol/L Potassium 4.0 (3.5-5.1) mmol/L Chloride 101 (98-107) mmol/L Carbon Dioxide 32 H (22-30) mmol/L BUN 26 H (7-17) mg/dL Creatinine 1.13 H (0.52-1.04) mg/dL Glucose 101 H (74-99) mg/dL Calcium 9.0 (8.4-10.2) mg/dL AST 23 (14-36) U/L ALT 11 (4-34) U/L Alkaline Phosphatase 71 (38-126) U/L Total Protein 5.0 L (6.3-8.2) g/dL Albumin 2.9 L (3.5-5.0) g/dL Current Medications Generic Name Dose Route Start Last Admin Trade Name Freq PRN Reason Stop Dose Admin Acetaminophen 650 mg 03/08/25 09:31 Acetaminophen Tab 325 Mg Tab PO Q6HR PRN Mild Pain or Fever > 100.5 Al Hydroxide/Mg Hydroxide 15 ml 03/08/25 09:30 Mag Hydrox/Al Hydrox/Simeth 30 Ml Cup PO Q6HR PRN Indigestion Albuterol Sulfate 2.5 mg 03/08/25 09:31 Albuterol Nebulized 2.5 Mg/3 Ml INHALATION RT-Q4H PRN Shortness Of Breath Amiodarone HCl 200 mg 03/08/25 21:00 03/09/25 21:00 Amiodarone 200 Mg Tab PO 200 mg BID AMBER Administration Budesonide/Formoterol Fumarate 2 puff 03/08/25 10:00 03/10/25 07:38 Symbicort 160-4.5 Mcg Inhaler INHALATION 2 puff RT-BID AMBER Administration Furosemide 40 mg 03/08/25 09:45 03/09/25 08:35 Furosemide 40 Mg Tab PO Not Given DAILY AMBER Meclizine HCl 12.5 mg 03/08/25 09:31 Meclizine 12.5 Mg Tab PO TID PRN dizziness Melatonin 3 mg 03/08/25 09:30 Melatonin 3 Mg Tablet PO HS PRN Insomnia Metoprolol Tartrate 25 mg 03/08/25 16:00 03/09/25 21:00 Metoprolol Tartrate 25 Mg Tab PO 25 mg TID AMBER Administration Naloxone HCl 0.2 mg 03/07/25 14:15 Naloxone 0.4 Mg/Ml 1 Ml Vial IV Q2M PRN Opioid Reversal Patient's Own ( 145 mcg 03/09/25 09:00 03/09/25 08:43 Linaclotide [Linzess PO Not Given ] 145 Mcg Capsule) DAILY AMBER Ondansetron HCl 4 mg 03/08/25 09:30 Ondansetron 4 Mg/2 Ml Vial IVP Q8HR PRN Nausea And Vomiting Pantoprazole Sodium 40 mg 03/08/25 21:00 03/09/25 21:00 Pantoprazole 40 Mg/10 Ml Vial IV 40 mg BID AMBER Administration Sertraline HCl 100 mg 03/09/25 09:00 03/09/25 08:44 Sertraline 100 Mg Tab PO 100 mg DAILY AMBER Administration Tiotropium [place] 2 puff 03/08/25 10:00 03/10/25 07:38 Tiotropium 2.5 Mcg Inhaler INHALATION 2 puff RT-DAILY AMBER Administration Intake and Output 03/09/25 03/10/25 03/10/25 22:59 06:59 14:59 Other: # Voids 6 2 # Bowel Movements 2 Weight 86.183 kg 03/10/25 06:06 03/10/25 06:06
--- NOTE | 2025-03-10 13:17 | P.PN ---
Subjective Progress Note Date: 03/10/25 SURGICAL PROGRESS NOTE CHIEF COMPLAINT: Shortness of breath HISTORY OF PRESENT ILLNESS: Surgical service following regards to anemia. Patient is status post EGD revealing antral gastritis, small hiatal hernia and esophagitis. No active bleeding hemoglobin 7.9 PHYSICAL EXAM: VITAL SIGNS: Reviewed. GENERAL: Well-developed in no acute distress. ABDOMEN: Soft. Nondistended. Nontender. NEUROLOGIC: Alert and oriented. Cranial nerves II through XII grossly intact. ASSESSMENT: 1. Symptomatic anemia with melanotic stools. Patient on Eliquis at home. Patient also takes oral iron 2. Status post EGD revealing antral gastritis const mild hernia and esophagitis. 3. History of lung cancer status post chemo and radiation treatment in December 2024 PLAN: - Patient scheduled for colonoscopy tomorrow with Dr. Louis to further investigate the anemia - Start GoLytely bowel prep - Clear liquid diet today - N.p.o. after midnight Physician Supervisor Taping note has been reviewed by physician. Signing provider agrees with the documented findings, assessment, and plan of care. Objective - Vital Signs Vital signs: Vital Signs Temp 97.8 F 03/10/25 08:00 Pulse 76 03/10/25 08:00 Resp 17 03/10/25 08:00 BP 96/45 03/10/25 08:00 Pulse Ox 97 03/10/25 08:00 FiO2 Intake & Output 03/09/25 03/10/25 03/10/25 18:59 06:59 18:59 Intake Total 200 Balance 200 Weight 86.183 kg Intake: IV 200 Other: # Voids 6 2 # Bowel Movements 2 - Labs CBC & Chem 7: 03/10/25 06:06 03/10/25 06:06 Labs: Abnormal Lab Results - Last 24 Hours (Table) 03/07/25 03/08/25 03/10/25 Range/Units 12:47 07:39 06:06 RBC 2.91 L (4.10-5.20) 10*6/uL Hgb 7.9 L (12.0-15.0) g/dL Hct 26.4 L (37.2-46.3) % MCHC 29.9 L (32.0-37.0) g/dL Plt Count 119 L (140-440) 10*3/uL Carbon Dioxide (22-30) mmol/L BUN (7-17) mg/dL Creatinine (0.52-1.04) mg/dL Glucose (74-99) mg/dL Total Protein (6.3-8.2) g/dL Albumin (3.5-5.0) g/dL RBC Folate 1,113 H (280 - 791) ng/mL Crossmatch See Detail 03/10/25 Range/Units 06:06 RBC (4.10-5.20) 10*6/uL Hgb (12.0-15.0) g/dL Hct (37.2-46.3) % MCHC (32.0-37.0) g/dL Plt Count (140-440) 10*3/uL Carbon Dioxide 32 H (22-30) mmol/L BUN 26 H (7-17) mg/dL Creatinine 1.13 H (0.52-1.04) mg/dL Glucose 101 H (74-99) mg/dL Total Protein 5.0 L (6.3-8.2) g/dL Albumin 2.9 L (3.5-5.0) g/dL RBC Folate (280 - 791) ng/mL Crossmatch
[2025-03-10] MEDS: PEG 3350 (236 GM/BTL) + LYTES 4,000 ML BOTTLE PO ONE (13:51)
[2025-03-10] MEDS: SODIUM CHLORIDE 0.9% 1,000 ML IV SCH (13:52)
--- NOTE | 2025-03-10 14:15 | P.PN ---
Subjective Progress Note Date: 03/10/25 patient is a 79-year-old lady with past medical history significant for atrial fibrillation on Eliquis, lung cancer per the ER because of shortness of breath. Patient states that for the last 2 weeks she has been noticing that she was getting short of breath on exertion. Patient stated that moving from her bed to the restroom will get her winded. Patient denied any chest pain. There was no complaint of palpitation. There was no complaint of orthopnea or PND. Patient has chronic swelling of lower extremities. Patient denied any nausea or vomiting. There was no complaint of hematemesis. Patient did notice that her stools were darker in color but she attributes it to taking iron. Because of worsening shortness of breath, patient came to the ER Initial lab work done in the ER showed WBC 7.91, hemoglobin 6, platelet count 151, sodium 137, potassium 3.8, BUN 32, creatinine 1.09, glucose 159, FOBT positive EKG done in the ER showed heart rate of 75 , no ST segment elevation or depression seen, no T-wave inversions seen. Chest x-ray done in the ER showed trace bilateral pleural effusion with associated atelectasis Patient admitted to internal medicine service 03/09. Patient seen and examined. Blood work done this morning showed WBC 8.51, hemoglobin 10.7, patient has received 2 units of packed red blood cells so far. N.p.o. going for EGD today 03/10/2025 Patient examined in follow-up resting in bed comfortably. Was recently put on oxygen for history of COPD. She does have some scattered wheezing noted on exam today. Does continue on Symbicort which she takes at home as well as albuterol inhaler as needed. Patient went for EGD colonoscopy with findings of esophagitis/antral gastritis and a small hiatal. There is no evidence for any acute bleeding noted. Oncology in to see the patient today. Pressure on the lower side dipping into the 96/45 and patient was started on IV fluids normal saline 75 mL/h. Hemoglobin today stable at 7.9. BUN of 26 creatinine of 1.13. REVIEW OF SYSTEMS: CONSTITUTIONAL: No fever, no malaise,. CARDIOVASCULAR: No chest pain, no palpitations, no syncope. PULMONARY: Reports shortness of breath, no cough, GASTROINTESTINAL: No diarrhea, no nausea, no vomiting, no abdominal pain. NEUROLOGICAL: No headaches, no weakness, PHYSICAL EXAMINATION: GENERAL: The patient is alert and oriented x3, not in any acute distress. Well developed, well nourished. HEENT: Pupils are round and equally reacting to light. EOMI. No scleral icterus. No conjunctival pallor. Normocephalic, atraumatic. No pharyngeal erythema. No thyromegaly. CARDIOVASCULAR: S1 and S2 present. No murmurs, rubs, or gallops. PULMONARY: Chest is clear to auscultation, no wheezing or crackles. ABDOMEN: Soft, nontender, nondistended, normoactive bowel sounds. No palpable organomegaly. MUSCULOSKELETAL: No joint swelling or deformity. EXTREMITIES: No cyanosis, clubbing, or pedal edema. NEUROLOGICAL: Gross neurological examination did not reveal any focal deficits. SKIN: No rashes. Assessment and plan GI bleed Acute blood loss anemia History of coronary artery disease with previous PCI of the RCA in 2013 Paroxysmal atrial fibrillation Hypertension blood pressure currently low/normal Dyslipidemia Carotid atherosclerosis COPD Chronic hypoxic respiratory failure Lung cancer status postchemotherapy and radiation therapy GI prophylaxis DVT prophylaxis Full Code Plan Monitor vital signs Monitor CBC Monitor CMP Continue telemetry monitoring Continue Protonix 40 mg twice a day Hold aspirin, Eliquis Post 2 units of packed red blood so far with stable hemoglobin Chest xray ordered Continue normal saline at 75 mls/hr; lasix on hold Cardiology consultation PT/OT consultation Discharge home in the next 24 hours Dictation was produced using [employer] dictation software. please excuse any grammatical, word or spelling errors. The impression and plan of care has been dictated by Jemma Lopez, Nurse Practitioner as directed. Dr. Jeramy MD I have performed a history and physical examination and medical decision making of this patient, discussed the same with the dictator, and agree with the dictators assessment and plan as written, documented as a scribe. Based on total visit time, I have performed more than 50% of this visit. Objective - Vital Signs Vital signs: Vital Signs Temp 97.8 F 03/10/25 08:00 Pulse 76 03/10/25 08:00 Resp 17 03/10/25 08:00 BP 96/45 03/10/25 08:00 Pulse Ox 97 03/10/25 08:00 FiO2 Intake & Output 03/09/25 03/10/25 03/10/25 18:59 06:59 18:59 Intake Total 200 Balance 200 Weight 86.183 kg Intake: IV 200 Other: # Voids 6 2 # Bowel Movements 2 - Labs CBC & Chem 7: 03/10/25 06:06 03/10/25 06:06 Labs: Abnormal Lab Results - Last 24 Hours (Table) 03/07/25 03/08/25 03/10/25 Range/Units 12:47 07:39 06:06 RBC 2.91 L (4.10-5.20) 10*6/uL Hgb 7.9 L (12.0-15.0) g/dL Hct 26.4 L (37.2-46.3) % MCHC 29.9 L (32.0-37.0) g/dL Plt Count 119 L (140-440) 10*3/uL Carbon Dioxide (22-30) mmol/L BUN (7-17) mg/dL Creatinine (0.52-1.04) mg/dL Glucose (74-99) mg/dL Total Protein (6.3-8.2) g/dL Albumin (3.5-5.0) g/dL RBC Folate 1,113 H (280 - 791) ng/mL Crossmatch See Detail 03/10/25 Range/Units 06:06 RBC (4.10-5.20) 10*6/uL Hgb (12.0-15.0) g/dL Hct (37.2-46.3) % MCHC (32.0-37.0) g/dL Plt Count (140-440) 10*3/uL Carbon Dioxide 32 H (22-30) mmol/L BUN 26 H (7-17) mg/dL Creatinine 1.13 H (0.52-1.04) mg/dL Glucose 101 H (74-99) mg/dL Total Protein 5.0 L (6.3-8.2) g/dL Albumin 2.9 L (3.5-5.0) g/dL RBC Folate (280 - 791) ng/mL Crossmatch Assessment and Plan Time with Patient: Less than 30
--- NOTE | 2025-03-10 15:44 | XR ---
EXAMINATION TYPE: XR chest 2V DATE OF EXAM: 03/10/2025 2:36 PM COMPARISON: 03/07/2025 CLINICAL INDICATION: Female, 79 years old with history of wheezing, , TECHNIQUE: PA and lateral views FINDINGS: Heart normal size. Atherosclerotic arch calcifications. Patchy interstitial opacities bilaterally. No consolidation or pleural effusion is seen. IMPRESSION: Patchy bilateral interstitial densities. Consider mild pulmonary vascular congestion versus atypical pneumonias or interstitial pneumonitis. [facility], Workstation: [id number], 03/10/2025 3:42 PM
--- NOTE | 2025-03-10 19:14 | P.CONS ---
History of Present Illness - Reason for Consult Consult date: 03/10/25 lung cancer Requesting physician: Lee Lopez - Chief Complaint SOB - History of Present Illness Patient is a 79 year old female with a significant history for NSCLC who follows with Dr. Madrid. Patient presented with asymptomatic LLL 1.3 cm lung nodule discovered incidentally found on CT of abdomen. She was evaluated by Dr Salgado, had PET Scan revealing SUV of 22 in LLL nodule and SUV of [address] She had bronchoscopy & EUS-Guided Bx of both lesion ; LLL bodule Bx was negative, but L11 lesion was + for squamous cell carcinoma. Patient has history of right sided breast cancer in 2017 , Grade II invasive ductal carcinoma, ER/SD 100%/100% [id number] 0 > L partial mastectomy > XRT ([facility]) > Adjuvant AIs X 5 years. Gaurdant 360: No actionable mutation. NGS and PD-L1 could not be obtained (NS). She completed 4 of 6 cycles of weekly infusions of carboplatinum+Taxol due to intolerance. She completed XRT course in the end of februrary. At last f/u on 02/25/25, plan was for repeat CT chest to assess treatment response, and for Imfinzi once patient was showing improvement in PS. Patient presented to the emergency room for shortness of breath. Hemoglobin on admit was noted at 6.0. Patient received 1 unit PRBCs with appropriate sponsors with repeat hemoglobin at 8.1. Patient's subsequent hemoglobin noted at 6.3 and received second unit of PRBCs. Iron studies showing iron saturation 6.1%. Ferritin 113 which was drawn after 1 unit PRBCs. Vitamin B12 750, folate 1113. Bilirubin LFTs WNL. BNP elevated at 2340. Troponins negative. Creatinine 1.13, GFR 46. Patient underwent EGD which showed antral gastritis, small hiatal hernia, esophagitis with no active GI bleed noted. Plan is to for patient to undergo colonoscopy tomorrow. Today hemoglobin showing 7.9 with appropriate response after 1 unit PRBCs. WBC 7.0, platelets 119,000. Eliquis has been held. Review of Systems 10 point ROS is negative except as stated in the HPI Past Medical History Past Medical History: Cancer, COPD, GERD/Reflux, Hypertension, Osteoarthritis (OA), Pneumonia Additional Past Medical History / Comment(s): LEFT ANKLE EDEMA, SOB, CHRONIC COUGH, hx. right breast ca 2019; Lung Cancer last chemo/radiation in Dec 2024 History of Any Multi-Drug Resistant Organisms: None Reported Past Surgical History: Breast Surgery, Cholecystectomy, Hysterectomy Additional Past Surgical History / Comment(s): LEFT BREAST BX BENIGN, right breast lumpectomy 2019 with radiation. Lung Ca Chemo/radiation 12/2024 Past Anesthesia/Blood Transfusion Reactions: Previous Problems w/ Anesthesia Additional Past Anesthesia/Blood Transfusion Reaction / Comm: pt states hard time waking up out of anesthesia Smoking Status: Never smoker - Past Family History Mother Family Medical History: Coronary Artery Disease (CAD), Hypertension Additional Family Medical History / Comment(s): cabg (triple) when 76, brain tumor Father Family Medical History: Prostate Disorder Additional Family Medical History / Comment(s): congenital heart fauilure; prostate ca Medications and Allergies Home Medications Medication Instructions Recorded Confirmed Type Sertraline [Zoloft] 100 mg PO DAILY 08/17/14 03/07/25 History Fluticasone/Umeclidin/Vilanter 1 puff INHALATION RT-DAILY 08/24/24 03/07/25 History [Trelegy Ellipta 100-62.5-25] Albuterol Sulfate [Ventolin HFA] 2 puff INHALATION RT-Q4H PRN 01/29/25 03/07/25 History Aspirin EC [Ecotrin Low Dose] 81 mg PO DAILY 01/29/25 03/07/25 History Meclizine [Antivert] 12.5 mg PO TID PRN 01/29/25 03/07/25 History Metoclopramide [Reglan] 10 mg PO QID PRN 01/29/25 03/07/25 History Omeprazole Magnesium [PriLOSEC OTC] 20 mg PO DAILY 01/29/25 03/07/25 History Ondansetron [Zofran] 4 mg PO Q4H PRN 01/29/25 03/07/25 History Acetaminophen Tab [Tylenol] 650 mg PO Q6HR PRN tab 02/02/25 03/07/25 Rx Metoprolol Tartrate [Lopressor] 25 mg PO TID #90 tab 02/02/25 03/07/25 Rx Amiodarone [Cordarone] 200 mg PO BID 03/07/25 03/07/25 History Furosemide [Lasix] 40 mg PO DAILY 03/07/25 03/07/25 History Linaclotide [Linzess] 145 mcg PO DAILY 03/07/25 03/07/25 History Allergies Allergy/AdvReac Type Severity Reaction Status Date / Time egg Allergy Unknown Verified 03/07/25 14:42 Sulfa (Sulfonamide Allergy Unknown Verified 03/07/25 14:42 Antibiotics) atorvastatin calcium AdvReac leg cramps Verified 03/07/25 14:42 [From Lipitor] codeine AdvReac lethargic Verified 03/07/25 14:42 Estrogens AdvReac anxiety/see Verified 03/07/25 14:42 comment Physical Exam Vitals: Vital Signs Temp Pulse Resp BP Pulse Ox 03/10/25 14:00 98.3 F 66 16 104/57 100 03/10/25 08:00 97.8 F 76 17 96/45 97 03/10/25 00:14 98.5 F 65 16 112/67 99 03/09/25 19:27 98.3 F 75 18 103/48 99 Intake and Output 03/10/25 03/10/25 03/10/25 06:59 14:59 22:59 Other: # Voids 2 - Constitutional General appearance: average body habitus, no acute distress - EENT Eyes: anicteric sclerae, EOMI ENT: hearing grossly normal - Respiratory Respiratory: bilateral: wheezing - Cardiovascular Rhythm: regular - Gastrointestinal General gastrointestinal: soft, no tenderness - Integumentary Integumentary: no cyanotic, pale - Neurologic Neurologic: CNII-XII intact - Musculoskeletal Musculoskeletal: generalized weakness - Psychiatric Psychiatric: A&O x's 3 Results CBC & Chem 7: 03/10/25 06:06 03/10/25 06:06 Labs: Abnormal Lab Results - Last 24 Hours (Table) 03/07/25 03/10/25 03/10/25 Range/Units 12:47 06:06 06:06 RBC 2.91 L (4.10-5.20) 10*6/uL Hgb 7.9 L (12.0-15.0) g/dL Hct 26.4 L (37.2-46.3) % MCHC 29.9 L (32.0-37.0) g/dL Plt Count 119 L (140-440) 10*3/uL Carbon Dioxide 32 H (22-30) mmol/L BUN 26 H (7-17) mg/dL Creatinine 1.13 H (0.52-1.04) mg/dL Glucose 101 H (74-99) mg/dL Total Protein 5.0 L (6.3-8.2) g/dL Albumin 2.9 L (3.5-5.0) g/dL Crossmatch See Detail Assessment and Plan (1) Non-small cell lung cancer (NSCLC) Current Visit: Yes Status: Acute Code(s): C34.90 - MALIGNANT NEOPLASM OF UNSP PART OF UNSP BRONCHUS OR LUNG SNOMED Code(s): 274341455 (2) Anemia Current Visit: Yes Status: Acute Code(s): D64.9 - ANEMIA, UNSPECIFIED SNOMED Code(s): 342235642 (3) COPD (chronic obstructive pulmonary disease) Current Visit: Yes Status: Acute Code(s): J44.9 - CHRONIC OBSTRUCTIVE PULMONARY DISEASE, UNSPECIFIED SNOMED Code(s): 21127146 Plan: Normocytic anemia: Presented to the emergency room for shortness of breath. -Hemoglobin on admit was noted at 6.0. Patient received 1 unit PRBCs with appropriate response, repeat hemoglobin at 8.1. Subsequent hemoglobin noted at 6.3 and received second unit of PRBCs. Today hgb 7.9. Iron studies showing iron saturation 6.1%. Ferritin 113 which was drawn after 1 unit PRBCs. Vitamin B12 750, folate 1113. Bilirubin LFTs WNL -Eliquis has been held. Cardiology consulted to reevaluate need for Eliquis. Briefly discussed case with cardiology team today -Patient underwent EGD which showed antral gastritis, small hiatal hernia, esophagitis with no active GI bleed noted. -Iron studies consistent with SELBE. Parenteral iron started x 4 doses -Colonoscopy scheduled for tomorrow -Continue to monitor CBC. Transfuse for hgb < 7 or if symptomatic NSCLC: -Oncology history as dictated in the HPI -Completed 4 of 6 cycles of weekly infusions of carboplatinum+Taxol, last 2 cycle stopped due to intolerance. She completed XRT course in the end of Fe letitia. At last f/u on 02/25/25, plan was for repeat CT chest to assess treatment response, and to start Imfinzi once patient was showing improvement in PS. -Will reschedule CT chest upon discharge. Clinic f/u scheduled on 03/[address] Madrid Doctor attests: I performed a history and physical examination of this patient, developed impression and plan of care. Discussed with dictator. I agree with dictators note, documented as a scribe.
[2025-03-10] MEDS: MAGNESIUM OXIDE 400 MG TAB PO SCH (20:37)
[2025-03-10] MEDS: SODIUM FERRIC GLUCONAT-SUCROSE 125 MG in SODIUM CHLORIDE 0.9% 100 ML IVPB SCH (23:59)
[2025-03-11 03:31] LABS: HCT 26.1 % (37.2-46.3); MCH 27.7 pg (27.0-32.0); MCHC 30.7 g/dL (32.0-37.0); MCV 90.3 fL (80.0-97.0); Mean Platelet Volume 9.7 fL (9.5-12.2); Platelet Count 111 10*3/uL (140-440); RBC 2.89 10*6/uL (4.10-5.20); RDW 18.3 % (11.5-14.5); WBC 7.41 10*3/uL (4.50-10.00)
[2025-03-11 04:01] LABS: African American GFR (CKD) 62 (>60 ml/min/1.73 sqM); Anion Gap 5 mmol/L; Blood Urea Nitrogen 18 mg/dL (7-17); Calcium 8.5 mg/dL (8.4-10.2); Carbon Dioxide 30 mmol/L (22-30); Chloride 102 mmol/L (98-107); Glucose 107 mg/dL (74-99); Non-African American GFR(CKD) 53 (>60 ml/min/1.73 sqM); Potassium 3.5 mmol/L (3.5-5.1); Sodium 137 mmol/L (137-145)
[2025-03-11 07:39] VITALS: RESP 16; TEMP 97.9
[2025-03-11] MEDS: POTASSIUM CHLORIDE ER 20 MEQ TAB.ER PO STA (10:48)
[2025-03-11] MEDS ORDERED: PROPOFOL 10 MG/ML 20 ML VIAL IV ONE (12:01)
--- NOTE | 2025-03-11 12:04 | P.PN ---
Subjective Progress Note Date: 03/11/25 SURGICAL PROGRESS NOTE CHIEF COMPLAINT: Shortness of breath HISTORY OF PRESENT ILLNESS: Surgical service following regards to anemia. Patient is status post EGD revealing antral gastritis, small hiatal hernia and esophagitis. No active bleeding. Hemoglobin 8.0 PHYSICAL EXAM: VITAL SIGNS: Reviewed. GENERAL: Well-developed in no acute distress. ABDOMEN: Soft. Nondistended. Nontender. NEUROLOGIC: Alert and oriented. Cranial nerves II through XII grossly intact. ASSESSMENT: 1. Symptomatic anemia with melanotic stools. Patient on Eliquis at home. Patient also takes oral iron 2. Status post EGD revealing antral gastritis const mild hernia and esophagitis. 3. History of lung cancer status post chemo and radiation treatment in December 2024 PLAN: -Patient scheduled for colonoscopy today Physician Occupational Health Technician note has been reviewed by physician. Signing provider agrees with the documented findings, assessment, and plan of care. Objective - Vital Signs Vital signs: Vital Signs Temp 97.9 F 03/11/25 07:38 Pulse 71 03/11/25 07:38 Resp 16 03/11/25 07:38 BP 115/62 03/11/25 07:38 Pulse Ox 96 03/11/25 07:48 FiO2 Intake & Output 03/10/25 03/11/25 03/11/25 18:59 06:59 18:59 Other: # Voids 3 # Bowel Movements 4 - Labs CBC & Chem 7: 03/11/25 02:50 03/11/25 02:50 Labs: Abnormal Lab Results - Last 24 Hours (Table) 03/11/25 03/11/25 Range/Units 02:50 02:50 RBC 2.89 L (4.10-5.20) 10*6/uL Hgb 8.0 L (12.0-15.0) g/dL Hct 26.1 L (37.2-46.3) % MCHC 30.7 L (32.0-37.0) g/dL Plt Count 111 L (140-440) 10*3/uL BUN 18 H (7-17) mg/dL Glucose 107 H (74-99) mg/dL
--- NOTE | 2025-03-11 12:17 | P.OP ---
Date of Procedure: 03/11/25 Preoperative Diagnosis: GI bleed Postoperative Diagnosis: GI bleed Procedure(s) Performed: Poor colon prep Diverticulosis Anesthesia: MAC Surgeon: Ben Louis Pathology: none sent Condition: stable Disposition: PACU Description of Procedure: The patient was placed on the endoscopy table in the lateral position. She received IV sedation. Digital rectal exam was performed which revealed external hemorrhoids. The flexible colonoscope was then placed patient anus passed throughout the colon. Scope not be passed beyond the sigmoid colon secondary to poor bowel prep. Patient had a large amount of solid melanotic stool. At this point scope was dropped. Diverticular changes were seen of the sigmoid colon. Scope was Ruback the rectum this appeared normal. Scope withdrawn from the patient. There is no evidence of any active GI bleed. It was unclear if the patient's Belix stool was due to GI bleed or her iron supplementation.
[2025-03-11] MEDS: LACTATED RINGERS 1,000 ML IV ONE (12:20)
[2025-03-11 13:32] VITALS: BP 121/68; PULSE 67
--- NOTE | 2025-03-12 12:06 | CDI ---
Documentation Clarification Form Date: 03/12/2025 11:55:03 AM From: Erica Andrews Phone: Admit Date: 03/07/2025 02:16:00 PM Patient Name: Francisca Berger Visit Number: [id number] Discharge Date: 03/11/2025 04:12:00 PM ATTENTION: The Clinical Documentation Specialists (CDI) and [facility] Coding Staff appreciate your assistance in clarifying documentation. Please respond to the clarification below the line at the bottom and electronically sign. The CDI & [facility] Coding staff will review the response and follow-up if needed. Please note: Queries are made part of the Legal Health Record. If you have any questions, please contact the author of this message via ITS. Doctor/Provider: Lee Lopez The final diagnosis of the pathology report states Ulceratedactiveesophagitis. Coding guidelines do not allow coding professionals to code based on pathology results; therefore, clarification is requested. History/risk factors: 79yo F, ABLA,melena, antralgastritis,hiatalhernia, esophagitis, Hx lung & breast Cx Clinical Indicators: The GE junction was at 38 cm. The distal esophagus appearedinflamed. This wasbiopsied. The proximal esophagus appeared normal. Treatment: Bx and monitored Please clarify if you agree with the pathology report diagnosis of Ulceratedactiveesophagitis: [ x] Yes [ ] No [ ] Other (please specify) [ ] Unable to determine (Template Last Revised: January 2021) MTDD
--- NOTE | 2025-03-13 15:15 | P.DS ---
Providers Date of admission: 03/07/25 14:16 Attending physician: Lee Lopez MD Consults: 03/07/25 14:59 Consult Physician Routine Consulting Provider: Ben Louis Consult Reason/Comments: anemia, occult positive Do you want consulting provider notified?: Already Contacted 03/10/25 08:15 Consult Physician Routine Consulting Provider: Emilee Madrid Consult Reason/Comments: PKTY Do you want consulting provider notified?: Already Contacted 03/10/25 08:32 Consult Physician Routine Consulting Provider: Rabia Luevano Consult Reason/Comments: hypotension, eliquis management Do you want consulting provider notified?: Already Contacted Primary care physician: Anne Mayberry Hospital Course: Final Diagnosis GI bleed Acute blood loss anemia Underlying iron deficiency anemia History of coronary artery disease with previous PCI of the RCA in 2013 Paroxysmal atrial fibrillation Hypertension blood pressure currently low/normal Dyslipidemia Carotid atherosclerosis COPD Chronic hypoxic respiratory failure from COPD Lung cancer status postchemotherapy and radiation therapy Discharge Disposition Patient is stable for discharge home. Recommending to remain off eliquis on DC and cardiology recommending to follow up for evaluation for possible Watchmen device. Patient to continue on oral iron and follow up with oncology in the office to discuss continued IV iron infusions. Repeat blood work on an outpatient basis. Follow up with Dr Mayberry 2 to 3 days. Hospital Course patient is a 79-year-old lady with past medical history significant for atrial fibrillation on Eliquis, lung cancer per the ER because of shortness of breath. Patient states that for the last 2 weeks she has been noticing that she was getting short of breath on exertion. Was recently placed on oxygen outpatient for history of COPD. Patient stated that moving from her bed to the restroom will get her winded. Patient denied any chest pain. There was no complaint of palpitation. There was no complaint of orthopnea or PND. Patient has chronic swelling of lower extremities. Patient denied any nausea or vomiting. There was no complaint of hematemesis. Patient did notice that her stools were darker in color but she attributes it to taking iron. Because of worsening shortness of breath, patient came to the ER. Initial lab work done in the ER showed WBC 7.91, hemoglobin 6, platelet count 151, sodium 137, potassium 3.8, BUN 32, creatinine 1.09, glucose 159, FOBT positive. EKG done in the ER showed heart rate of 75 , no ST segment elevation or depression seen, no T-wave inversions seen. Chest x-ray done in the ER showed trace bilateral pleural effusion with associated atelectasis. Patient admitted to internal medicine service. Patient went for EGD colonoscopy with findings of esophagitis/antral gastritis and a small hiatal. There is no evidence for any acute bleeding noted. Oncology in to see the patient today and did start the patient on IV iron. Patient was evaluated by PT and doing well. Hemoglobin has remained stable and no signs of active bleeding. Patient will be discharged home. Please see medication reconciliation for a list of current medications. Thank you for allowing us to participate in the care of this patient. The impression and plan of care has been dictated by Jemma Lopez, Nurse Practitioner as directed. Dr. Jeramy MD I have performed a history and physical examination and medical decision making of this patient, discussed the same with the dictator, and agree with the dictators assessment and plan as written, documented as a scribe. Based on total visit time, I have performed more than 50% of this visit. Patient Condition at Discharge: Stable Plan - Discharge Summary New Discharge Prescriptions: New Ferrous Sulfate [Feosol] 325 mg PO BID #60 tab Continue Sertraline [Zoloft] 100 mg PO DAILY Omeprazole Magnesium [PriLOSEC OTC] 20 mg PO DAILY Aspirin EC [Ecotrin Low Dose] 81 mg PO DAILY Albuterol Sulfate [Ventolin HFA] 2 puff INHALATION RT-Q4H PRN PRN Reason: Shortness Of Breath Ondansetron [Zofran] 4 mg PO Q4H PRN PRN Reason: Nausea Metoprolol Tartrate [Lopressor] 25 mg PO TID #90 tab Furosemide [Lasix] 40 mg PO DAILY Linaclotide [Linzess] 145 mcg PO DAILY Fluticasone/Umeclidin/Vilanter [Trelegy Ellipta 100-62.5-25] 1 puff INHALATION RT-DAILY Meclizine [Antivert] 12.5 mg PO TID PRN PRN Reason: dizziness Metoclopramide [Reglan] 10 mg PO QID PRN PRN Reason: Nausea And Vomiting Acetaminophen Tab [Tylenol] 650 mg PO Q6HR PRN tab PRN Reason: Mild Pain Or Fever > 100.5 Amiodarone [Cordarone] 200 mg PO BID Discontinued Apixaban [Eliquis] 5 mg PO BID #60 tab Discharge Medication List Sertraline [Zoloft] 100 mg PO DAILY 08/17/14 [History] Fluticasone/Umeclidin/Vilanter [Trelegy Ellipta 100-62.5-25] 1 puff INHALATION RT-DAILY 08/24/24 [History] Albuterol Sulfate [Ventolin HFA] 2 puff INHALATION RT-Q4H PRN 01/29/25 [History] Aspirin EC [Ecotrin Low Dose] 81 mg PO DAILY 01/29/25 [History] Meclizine [Antivert] 12.5 mg PO TID PRN 01/29/25 [History] Metoclopramide [Reglan] 10 mg PO QID PRN 01/29/25 [History] Omeprazole Magnesium [PriLOSEC OTC] 20 mg PO DAILY 01/29/25 [History] Ondansetron [Zofran] 4 mg PO Q4H PRN 01/29/25 [History] Acetaminophen Tab [Tylenol] 650 mg PO Q6HR PRN tab 02/02/25 [Rx] Metoprolol Tartrate [Lopressor] 25 mg PO TID #90 tab 02/02/25 [Rx] Amiodarone [Cordarone] 200 mg PO BID 03/07/25 [History] Furosemide [Lasix] 40 mg PO DAILY 03/07/25 [History] Linaclotide [Linzess] 145 mcg PO DAILY 03/07/25 [History] Ferrous Sulfate [Feosol] 325 mg PO BID #60 tab 03/11/25 [Rx] Follow up Appointment(s)/Referral(s): Anne Mayberry MD [Primary Care Provider] - 1-2 days Devaughn Madrid MD [STAFF PHYSICIAN] - 03/25/25 (Patient has appointmet) Deep Appiah MD [STAFF PHYSICIAN] - 1 Week Ambulatory/Diagnostic Orders: Complete Blood Count w/diff [LAB.AMB] Time Frame: 3 Days, Location: None Selected Activity/Diet/Wound Care/Special Instructions: Stay off eliquis on discharge and follow up with Dr Appiah in the office to discuss the watchmen procedure Follow up with your oncologist to continue iron transfusions. Use miralax over the counter to avoid constipation while on oral iron tablets. Discharge Disposition: HOME WITH HOME HEALTH SERVICES
== END 2025-03-11 16:12 | disposition home health service (06) | DRG 368 ==
LOC: EC 10:27 → 4SSUR 14:16 → 1SOBS 20:21
PROVIDERS: ADMIT Internal Medicine; ATTEND Internal Medicine
PROC: 30233N1 Transfusion of Nonautologous Red Blood Cells into Peripheral Vein, Percutaneous Approach (ICD-10-PCS; 2025-03-07)
PROC: 0DB38ZX Excision of Lower Esophagus, Via Natural or Artificial Opening Endoscopic, Diagnostic (ICD-10-PCS; 2025-03-09)
PROC: 0DB78ZX Excision of Stomach, Pylorus, Via Natural or Artificial Opening Endoscopic, Diagnostic (ICD-10-PCS; principal; 2025-03-09 12:30)
PROC: 0DJD8ZZ Inspection of Lower Intestinal Tract, Via Natural or Artificial Opening Endoscopic (ICD-10-PCS; 2025-03-11)
DX: K21.01 Gastro-esophageal reflux disease with esophagitis, with bleeding (principal); K22.11 Ulcer of esophagus with bleeding; K57.31 Diverticulosis of large intestine without perforation or abscess with bleeding; K29.71 Gastritis, unspecified, with bleeding; Z99.81 Dependence on supplemental oxygen; J44.1 Chronic obstructive pulmonary disease with (acute) exacerbation; I10 Essential (primary) hypertension; I65.29 Occlusion and stenosis of unspecified carotid artery; D50.9 Iron deficiency anemia, unspecified; J96.11 Chronic respiratory failure with hypoxia; D62 Acute posthemorrhagic anemia; I48.0 Paroxysmal atrial fibrillation; E78.5 Hyperlipidemia, unspecified; K44.9 Diaphragmatic hernia without obstruction or gangrene; K64.4 Residual hemorrhoidal skin tags; M79.89 Other specified soft tissue disorders; I95.9 Hypotension, unspecified; R79.89 Other specified abnormal findings of blood chemistry; I25.10 Atherosclerotic heart disease of native coronary artery without angina pectoris; R60.0 Localized edema; Z79.01 Long term (current) use of anticoagulants; Z92.21 Personal history of antineoplastic chemotherapy; Z79.82 Long term (current) use of aspirin; Z79.899 Other long term (current) drug therapy; Z79.51 Long term (current) use of inhaled steroids; Z85.3 Personal history of malignant neoplasm of breast; Z85.118 Personal history of other malignant neoplasm of bronchus and lung; Z92.3 Personal history of irradiation; Z87.891 Personal history of nicotine dependence; Z95.5 Presence of coronary angioplasty implant and graft
CPT/HCPCS: 36415; 36430; 43239; 45330; 71046; 80048; 80053; 82272; 82607; 82728; 82747; 83540; 83550; 83605; 83735; 83880; 84484; 85025; 85027; 85610; 85730; 86850; 86900; 86901; 86920; 88305; 88312; 88313; 93005; 94640; 94760; 96374; 96376; 99285